=== PATIENT | male | born 1950 | race Caucasian/White ===

== ENCOUNTER → 2016-12-10 | Day surgery (SDC) | payer MEDICARE, OTHER ==
[~2016-12-10] MED LIST: IV RINGERS,LACTATED 1000ML 1,000 ML IV SCH; LIDOCAINE 2% PF Vial for OR 5 ML VIAL. ONE; LISI-334 PO; NAPR500T PO; PROPOFOL 20 ML IV ONE
[2016-12-10 10:50] VITALS: BP 149/89
--- NOTE | 2016-12-10 12:31 | PREOP HP ---
DATE OF SERVICE: 12/10/2016 REQUESTING PHYSICIAN: Dr. Alyssa Morrison, primary care physician. REASON FOR PROCEDURE: History of colon polyps. HISTORY OF PRESENT ILLNESS: This is a 65-year-old gentleman who presents today for colonoscopy. He had a colonoscopy 4 years ago that demonstrated polyps. He reports a daily bowel movement. He has no family history of colorectal cancer. ALLERGIES: CODEINE CAUSES NAUSEA. MEDICATIONS: 1. Lisinopril. 2. Naproxen. PAST MEDICAL HISTORY: Significant for: 1. Colon polyps. 2. Hypertension. 3. Urethral stricture. 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 5. Urinary obstruction. 6. Double hernia surgery 25 years ago. 7. Left leg surgery. 8. Pelvic ____. 9. Left hip replacement. 10. Left cataract removal. 11. Arthritis. FAMILY MEDICAL HISTORY: Negative for colorectal cancer. SOCIAL HISTORY: He previously drank alcohol, none currently. He denies tobacco or IV drug abuse. REVIEW OF SYSTEMS: A 13-point review of systems was done. It is positive as per HPI and otherwise negative. PHYSICAL EXAMINATION: GENERAL: He is a well-developed, well-nourished male in no apparent distress. HEENT: Oropharynx is clear. CARDIOVASCULAR: S1, S2. LUNGS: Clear. ABDOMEN: Normoactive bowel sounds, soft, nontender, nondistended. EXTREMITIES: No edema. NEUROLOGIC: Awake, alert and oriented x 3. ASSESSMENT AND PLAN: History of colon polyps. Risks and benefits of procedure including bleeding, perforation, ____ and sedation were explained and he agreed to proceed. Thank you for allowing me to participate in the care of this patient. KELLY NAVA MD DR: ALTAF/syed JOB#: [id number] / [id number] RICHIE Thomas MD
== END | disposition home or self-care (01) ==
LOC: ENDOS 08:37
PROVIDERS: ATTEND Internal Medicine Gastroenterology
DX: Z09 Encounter for follow-up examination after completed treatment for conditions other than malignant neoplasm (principal); Z87.19 Personal history of other diseases of the digestive system; K64.0 First degree hemorrhoids; I10 Essential (primary) hypertension; Z87.39 Personal history of other diseases of the musculoskeletal system and connective tissue; Z98.42 Cataract extraction status, left eye; Z88.6 Allergy status to analgesic agent
CPT/HCPCS: 45378; J2704; J2001

== ENCOUNTER 2017-03-08 05:34 | Inpatient (IN) | payer MEDICARE ==
[2017-03-08] VITALS (14 sets, daily range): BP systolic 114–157; BP diastolic 44–65
[~2017-03-08] VITALS: Ht 172.7 cm; Wt 100.8 kg
[~2017-03-08 05:34] MED LIST changes: +ASPI-630 PO; -IV RINGERS,LACTATED 1000ML 1,000 ML IV SCH; -LIDOCAINE 2% PF Vial for OR 5 ML VIAL. ONE; +METO25TA4 PO; +NAPR-683 PO; -NAPR500T PO; -PROPOFOL 20 ML IV ONE
[2017-03-08] MEDS ORDERED: POTASSIUM CHLORIDE 15 MEQ, SODIUM BICARBONATE VIAL 12.5 MEQ in IV ELECTROLYTE-S (PH 7.4... IRR ONE (06:00)
[2017-03-08] MEDS ORDERED: HEPARIN 20,000 UNIT in IV RINGERS,LACTATED 1000ML 1,000 ML IRR ONE (06:00)
[2017-03-08] MEDS ORDERED: POTASSIUM CHLORIDE 70 MEQ, SODIUM BICARBONATE VIAL 12.5 MEQ, LIDOCAINE 2% 24 ML in IV E... IRR ONE (06:00)
[2017-03-08] MEDS ORDERED: ASPI325T11 PO (06:27)
[2017-03-08] MEDS ORDERED: LISI-334 PO (06:27)
[2017-03-08] MEDS ORDERED: NAPR-683 PO (06:27)
[2017-03-08] MEDS ORDERED: ceFAZolin 2GM PREMIX 2 GM/50 ML BAG IV ONE (06:30)
[2017-03-08] MEDS ORDERED: LIDOCAINE 2% PF Vial for OR 5 ML VIAL. ONE ×2 (06:48→12:54)
[2017-03-08] MEDS ORDERED: PHENYLEPHRINE 10 MG/ML VIAL. ONE ×3 (06:48→14:15)
[2017-03-08] MEDS ORDERED: ETOMIDATE 20 MG/10 ML VIAL. IV ONE (06:48)
[2017-03-08] MEDS ORDERED: NITROGLYCERIN PREMIX 250 ML IV ONE (06:48)
[2017-03-08] MEDS ORDERED: ROCURONIUM 100 MG/10 ML VIAL. ONE ×3 (06:49→11:34)
[2017-03-08] MEDS ORDERED: SUFentanil 100 MCG/2 ML AMPUL. ONE (06:49)
[2017-03-08] MEDS ORDERED: MIDAZOLAM HCL/PF 2 MG/2 ML VIAL. ONE ×3 (06:49→12:09)
[2017-03-08] MEDS ORDERED: HEPARIN 30,000 UNIT/30 ML VIAL. ONE ×2 (06:50→12:54)
[2017-03-08] MEDS ORDERED: AMINOCAPROIC ACID 5,000 MG/20 ML VIAL. IV ONE (06:50)
[2017-03-08] MEDS ORDERED: LIDOCAINE 1% PF 2 ML VIAL. ID PRN (07:00)
[2017-03-08] MEDS ORDERED: PROCHLORPERAZINE 10 MG/2 ML VIAL. IV PRN ×2 (07:00→13:00)
[2017-03-08] MEDS ORDERED: HYDROmorphone 2 MG/ML VIAL IV PRN (07:00)
[2017-03-08] MEDS ORDERED: MORPHINE SULFATE 4 MG/ML DISP.SYRIN. IV PRN (07:00)
[2017-03-08] MEDS ORDERED: IV RINGERS,LACTATED 1000ML 1,000 ML IV SCH (07:00)
[2017-03-08] MEDS ORDERED: fentaNYL PF VIAL 100 MCG/2 ML VIAL IV PRN ×2 (07:00)
[2017-03-08] MEDS ORDERED: ONDANSETRON PF 4 MG/2 ML VIAL. IV PRN (07:00)
[2017-03-08] MEDS ORDERED: SUFentanil 250 MCG/5 ML AMPUL. ONE (07:04)
[2017-03-08] MEDS ORDERED: PAPAVERINE 60 MG/2 ML VIAL FOR OR ONLY. ONE (07:38)
[2017-03-08] MEDS ORDERED: ASPIRIN 300 MG SUPP.RECT ONE (07:38)
[2017-03-08] MEDS ORDERED: VANCOMYCIN 10GM VIAL for OR. ONE (07:38)
[2017-03-08] MEDS ORDERED: SURGICEL HEMOSTAT 4X8 EACH. ONE (07:38)
[2017-03-08] MEDS ORDERED: 0.9 % SODIUM CHLORIDE 50 ML VIAL. IJ ONE (07:39)
--- NOTE | 2017-03-08 08:24 | PDOC1 ---
History and Physical Date of Admission Date of Admission DATE: 03/08/17 TIME: 08:22 Identification/Chief Complaint Chief Complaint Angina Problems: Source Source: Chart review, Patient History of Present Illness History of Present Illness The patient is a pleasant 58-year-old male with a strong family history of ischemic heart disease, and a medical history of hypertension and hyperlipidemia who presents with unstable angina for 2 months. His angina has been occurring more frequently over the past several weeks on minimal exertion. He describes a central chest pain/heaviness with associated shortness of breath , which subsides with rest. He underwent coronary angiography which demonstrated high-grade stenosis in the proximal LAD, proximal circumflex, and the ostium of a large OM 1. The patient has mild ischemic cardiomyopathy with an EF of 45%. The RCA is a relatively small vessel with minimal disease. Past Medical History Cardiovascular: HTN Pulmonary: Bronchitis Musculoskeletal: Osteoarthritis Renal/: Chronic renal insuff, Other Past Surgical History Past Surgical History: Hernia Repair, Total hip replacement Family History Family History: Heart Disease Family History: Parent Social History ALCOHOL: none Drugs: None Current Medications Current Medications Current Medications Ondansetron HCl (Zofran) 4 mg PRN Q6HRS PRN IV NAUSEA/VOMITING; Start at 07:00; Stop 03/09/17 at 06:59 Fentanyl Citrate (Fentanyl 2ml Vial) 25 mcg PRN Q5MIN PRN IV MILD PAIN; Start 03/08/17 at 07:00; Stop 03/09/17 at 06:59 Fentanyl Citrate (Fentanyl 2ml Vial) 50 mcg PRN Q5MIN PRN IV MODERATE PAIN; Start 03/08/17 at 07:00; Stop 03/09/17 at 06:59 Morphine Sulfate 1 mg PRN Q10MIN PRN IV SEVERE PAIN; Start 03/08/17 at 07:00; Stop 03/09/17 at 06:59 Ringer's Solution 1,000 ml @ 0 mls/hr Q0M IV Last administered on 03/08/17t 06:18; Start 03/08/17 at 07:00; Stop 03/08/17 at 18:59 Lidocaine HCl (Xylocaine-Mpf 1% Vial) 2 ml PRN 1X PRN ID PRIOR TO IV START; Start 03/08/17 at 07:00; Stop 03/09/17 at 06:59 Hydromorphone HCl (Dilaudid) 0.5 mg PRN Q10MIN PRN IV SEV PAIN, Second choice; Start 03/08/17 at 07:00; Stop 03/09/17 at 06:59 Prochlorperazine Edisylate (Compazine) 5 mg PACU PRN PRN IV NAUSEA, MRX1; Start 03/08/17 at 07:00; Stop 03/09/17 at 06:59 Cefazolin Sodium/ Dextrose 50 ml @ As Directed STK-MED ONCE IV ; Start at 06:22; Stop 03/08/17 at 06:23; Status DC Lidocaine HCl (Lidocaine Pf 2% Vial) 5 ml STK-MED ONCE .ROUTE ; Start 03/08/17 at 06:48; Stop 03/08/17 at 06:49; Status DC Phenylephrine HCl (Alvarez-Synephrine Inj) 10 mg STK-MED ONCE .ROUTE ; Start at 06:48; Stop 03/08/17 at 06:49; Status DC Etomidate (Amidate) 20 mg STK-MED ONCE IV ; Start 03/08/17 at 06:48; Stop at 06:49; Status DC Nitroglycerin/ Dextrose 250 ml @ As Directed STK-MED ONCE IV ; Start 03/08/17 at 06:48; Stop 03/08/17 at 06:49; Status DC Rocuronium [place] (Zemuron) 100 mg STK-MED ONCE .ROUTE ; Start 03/08/17 at 06: 49; Stop 03/08/17 at 06:50; Status DC Sufentanil Citrate (Sufenta) 100 mcg STK-MED ONCE .ROUTE ; Start 03/08/17 at 06 :49; Stop 03/08/17 at 06:50; Status DC Midazolam HCl (Versed) 2 mg STK-MED ONCE .ROUTE ; Start 03/08/17 at 06:49; Stop 03/08/17 at 06:50; Status DC Heparin Sodium (Porcine) 30,000 unit STK-MED ONCE .ROUTE ; Start 03/08/17 at 06 :50; Stop 03/08/17 at 06:51; Status DC Aminocaproic Acid (Amicar) 5,000 mg STK-MED ONCE IV ; Start 03/08/17 at 06:50; Stop 03/08/17 at 06:51; Status DC Sufentanil Citrate (Sufenta) 250 mcg STK-MED ONCE .ROUTE ; Start 03/08/17 at 07 :04; Stop 03/08/17 at 07:05; Status DC Vancomycin HCl (Vanco) 10 gm STK-MED ONCE .ROUTE ; Start 03/08/17 at 07:38; Stop 03/08/17 at 07:39; Status DC Cellulose 1 each STK-MED ONCE .ROUTE ; Start 03/08/17 at 07:38; Stop 03/08/17 at 07:39; Status DC Papaverine HCl 60 mg STK-MED ONCE .ROUTE ; Start 03/08/17 at 07:38; Stop 03/08 at 07:39; Status DC Aspirin (Aspirin) 300 mg STK-MED ONCE .ROUTE ; Start 03/08/17 at 07:38; Stop 03/08/17 at 07:39; Status DC Sodium Chloride (Sodium Chloride) 50 ml STK-MED ONCE IJ ; Start 03/08/17 at 07: 39; Stop 03/08/17 at 07:40; Status DC Cefazolin Sodium/ Dextrose 50 ml @ 100 mls/hr 1X PREOP IV ; Start 03/08/17 at 07:45; Stop 03/09/17 at 18:00 Potassium Chloride 70 meq/ Sodium Bicarbonate 12.5 meq/Lidocaine HCl 24 ml/ Parenteral Electrolytes 571.5 ml @ 571.5 mls/ hr 1X PERIOP ONCE IRR ; Start 03/08/17 at 06:00; Stop 03/08/17 at 07:45; Status DC Potassium Chloride 15 meq/ Sodium Bicarbonate 12.5 meq/Parenteral Electrolytes 520 ml @ 520 mls/hr 1X PERIOP ONCE IRR ; Start 03/08/17 at 06:00; Stop 03/08 at 07:45; Status DC Cefazolin Sodium 1 gm/Sodium Chloride 500 ml @ 500 mls/hr 1X PERIOP ONCE IRR ; Start 03/08/17 at 06:00; Stop 03/08/17 at 07:45; Status DC Heparin Sodium (Porcine) 05573 unit/Ringer's Solution 1,020 ml @ 1,020 mls/hr 1X PERIOP ONCE IRR ; Start 03/08/17 at 06:00; Stop 03/08/17 at 07:45; Status DC Midazolam HCl (Versed) 2 mg STK-MED ONCE .ROUTE ; Start 03/08/17 at 08:14; Stop 03/08/17 at 08:15; Status DC Active Scripts Active Reported Naprosyn (Naproxen) 500 Mg Tablet 1 Tab PO BIDAFTMEAL PRN PRN Aspirin Ec (Aspirin) 325 Mg Tablet.dr 1 Tab PO DAILY Lisinopril 20 Mg Tablet 1 Tab PO DAILY Metoprolol Tartrate 25 Mg Tablet 25 Mg PO BID Allergies Allergies: Coded Allergies: codeine (Verified Adverse Reaction, Mild, Nausea and Vomiting, 03/08/17) ROS General: No: Chills, Night Sweats, Fatigue, Malaise, Appetite PSYCHOLOGICAL ROS: No: Anxiety, Behavioral Disorder, Concentration difficultie , Decreased libido, Depression, Disorientation, Hallucinations, Hostility, Irritablity, Memory difficulties, Mood Swings, Obsessive thoughts, Physical abuse, Sexual abuse, Sleep disturbances, Suicidal ideation Eyes: No Blurry vision, No Decreased vision, No Double vision, No Dry eyes, No Excessive tearing, No Eye Pain, No Itchy Eyes, No Loss of vision, No Photophobia , No Scotomata, No Uses contacts, No Uses glasses HEENT: No: Heacaches, Visual Changes, Hearing change, Nasal congestion, Nasal discharge, Oral lesions, Sinus pain, Sore Throat, Epistaxis, Sneezing, Snoring, Tinnitus, Vertigo, Vocal changes ALLERGY AND IMMUNOLOGY: No: Hives, Insect Bite Sensitivity, Itchy/Watery Eyes, Nasal Congestion, Post Nasal Drip, Seasonal Allergies ENDOCRINE: No: Breast Changes, Galactorrhea, Hair Pattern Changes, Hot Flashes , Malaise/lethargy, Mood Swings, Palpitations, Polydipsia/polyuria, Skin Changes , Temperature Intolerance, Unexpected Weight Changes Respiratory: No: Cough, Hemoptysis, Orthopnea, Pleuritic Pain, Shortness of breath, SOB with excertion, Sputum Changes, Stridor, Tachypnea, Wheezing Cardiovascular: No Chest Pain, No Palpitations, No Orthopnea, No Paroxysmal Noc. Dyspnea, No Edema, No Lt Headedness Gastrointestinal: No Nausea, No Vomiting, No Abdominal Pain, No Diarrhea, No Constipation, No Melena, No Hematochezia Genitourinary: No Dysuria, No Frequency, No Incontinence, No Hematuria, No Retention, No Discharge, No Urgency, No Pain, No Flank Pain Musculoskeletal: No Gait Disturbance, No Joint Pain, No Joint Stiffness, No Joint Swelling, No Muscle Pain, No Muscular Weakness, No Pain In:, No Swelling In: Neurological: No Behavorial Changes, No Bowel/Bladder ControlChng, No Confusion , No Dizziness, No Gait Disturbance, No Headaches, No Impaired Coord/balance, No Memory Loss, No Numbness/Tingling, No Seizures, No Speech Problems, No Tremors, No Visual Changes, No Weakness Skin: No Dry Skin, No Eczema, No Hair Changes, No Lumps, No Mole Changes, No Mottling, No Nail Changes, No Pruritus, No Rash, No Skin Lesion Changes, No Acne Physical Exam General: Alert, Oriented X3, No acute distress HEENT: Atraumatic, PERRLA Lungs: Clear to auscultation Heart: S1S2, RRR, no murmurs Abdomen: Normal bowel sounds, Soft, No tenderness, No hepatosplenomegaly Rectal Exam: deferred Extremities: No clubbing Skin: No significant lesion Neuro: Normal gait, Normal speech, Strength at 5/5 X4 ext, Normal tone, Sensation intact, Cranial nerves 3-12 NL Vitals Vitals Vital Signs Date Time Temp Pulse Resp B/P (MAP) Pulse Ox O2 Delivery O2 Flow Rate FiO2 03/08/17 06:11 Room Air 03/08/17 06:05 97.3 92 20 125/66 98 97.3 VTE Prophylaxis Ordered VTE Prophylaxis Devices: Yes VTE Pharmacological Prophylaxi: No Assessment/Plan Assessment/Plan The patient is a pleasant 58-year-old male with a strong family history of ischemic heart disease, and a medical history of hypertension and hyperlipidemia who presents with unstable angina for 2 months. His angina has been occurring more frequently over the past several weeks on minimal exertion. He describes a central chest pain/heaviness with associated shortness of breath , which subsides with rest. He underwent coronary angiography which demonstrated high-grade stenosis in the proximal LAD, proximal circumflex, and the ostium of a large OM 1. The patient has mild ischemic cardiomyopathy with an EF of 45%. The RCA is a relatively small vessel with minimal disease. Proceed with CABG ARNALDO GALINDO MD Mar 08, 2017 08:24
[2017-03-08] MEDS ORDERED: INSULIN REGULAR VIAL 150 UNIT in 0.9 % SODIUM CHLORIDE 150ML 150 ML IV PRN ×2 (09:30→13:00)
[2017-03-08] MEDS ORDERED: HEPARIN for IV BOLUS 10,000 UNIT/10 ML VIAL. ONE ×3 (09:32→12:54)
[2017-03-08] MEDS ORDERED: PROTAMINE 250 MG/25 ML VIAL IV ONE ×2 (12:23→12:26)
[2017-03-08] MEDS ORDERED: PROPOFOL 100 ML IV ONE (12:24)
[2017-03-08] MEDS ORDERED: CALCIUM CHLORIDE 1,000 MG/10 ML DISP.SYRIN IV ONE ×3 (12:51→12:54)
[2017-03-08] MEDS ORDERED: ALBUMIN HUMAN 25% 100 ML IV ONE (12:55)
[2017-03-08] MEDS ORDERED: MANNITOL 25% 12.5 G/50 ML VIAL FOR OR. ONE (12:55)
[2017-03-08] MEDS ORDERED: MAGNESIUM SULFATE 5 GM/10 ML VIAL. ONE (12:55)
[2017-03-08] MEDS ORDERED: SODIUM BICARB ADULT 8.4% 50 MEQ/50 ML DISP.SYRIN. ONE (12:56)
[2017-03-08] MEDS ORDERED: MAGNESIUM SULFATE 1GM 100 ML IV PRN (13:00)
[2017-03-08] MEDS ORDERED: ACETAMINOPHEN 325 MG TABLET. PO PRN (13:00)
[2017-03-08] MEDS ORDERED: ALBUMIN HUMAN 5% 250 ML IV PRN (13:00)
[2017-03-08] MEDS ORDERED: 0.9 % SODIUM CHLORIDE 10 ML DISP.SYRIN. IV PRN (13:00)
[2017-03-08] MEDS ORDERED: BISACODYL 10 MG SUPP.RECT. PR PRN (13:00)
[2017-03-08] MEDS ORDERED: MEPERIDINE PF 25 MG/ML VIAL. IV PRN (13:00)
[2017-03-08] MEDS ORDERED: ceFAZolin SODIUM 1 GM in IV DEXTROSE 5% 50 ML IV SCH (13:00)
[2017-03-08] MEDS ORDERED: ACETAMINOPHEN 650 MG SUPP.RECT. PR PRN (13:00)
[2017-03-08] MEDS ORDERED: ELECTROLYTE (ICU) PROTOCOL. MC PRN (13:00)
[2017-03-08] MEDS ORDERED: DEXTROSE 50% 25 GM / 50ML DISP.SYRIN. IV PRN (13:00)
[2017-03-08] MEDS ORDERED: KCL PER PROTOCOL MC PRN (13:00)
[2017-03-08] MEDS ORDERED: ALBUMIN HUMAN 5% 500 ML IV ONE (13:08)
[2017-03-08 13:27] LABS: RED BLOOD COUNT 2.48 x10^6/uL (4.30-5.70); RED CELL DISTRIBUTION WIDTH 16.1 % (11.5-14.5); WHITE BLOOD COUNT 15.7 x10^3/uL (4.0-11.0)
[2017-03-08] MEDS ORDERED: ROCURONIUM 50 MG/5 ML VIAL. ONE (13:27)
[2017-03-08 13:33] LABS: HEMATOCRIT 18.7 % (39.0-53.0); HEMOGLOBIN 5.8 g/dL (13.0-17.5)
[2017-03-08 13:36] LABS: PROTHROMBIN TIME PATIENT 21.3 SEC (11.7-14.0)
[2017-03-08 14:25] LABS: ART BE ISTAT -4 mmol/L (0-3); ART GLUC ISTAT 131 mg/dL (70-99); ART HCO3 ISTAT 21 mmol/L (21-28); ART HCT ISTAT 23 % (37-52); ART HGB ISTAT 7.8 g/dL (14-18); ART ION CA ISTAT 1.15 mmol/L (1.13-1.32); ART K ISTAT 3.7 mmol/L (3.5-5.0); ART NA ISTAT 138 mmol/L (135-145); ART PCO2 ISTAT 34 mmHg (35-45); ART PH ISTAT 7.41 (7.35-7.45); ART PO2 ISTAT 223 mmHg (75-100); ART SAT O2 SAT 100 % (95-99); ART TCO2 ISTAT 22 mmol/L (21-32); TOSPEC ART
[2017-03-08 14:25] LABS: ART BE ISTAT 0 mmol/L (0-3); ART GLUC ISTAT 123 mg/dL (70-99); ART HCO3 ISTAT 24 mmol/L (21-28); ART HCT ISTAT 26 % (37-52); ART HGB ISTAT 8.8 g/dL (14-18); ART ION CA ISTAT 1.19 mmol/L (1.13-1.32); ART K ISTAT 3.7 mmol/L (3.5-5.0); ART NA ISTAT 137 mmol/L (135-145); ART PCO2 ISTAT 38 mmHg (35-45); ART PH ISTAT 7.41 (7.35-7.45); ART PO2 ISTAT 218 mmHg (75-100); ART SAT O2 SAT 100 % (95-99); ART TCO2 ISTAT 25 mmol/L (21-32); TOSPEC ART
[2017-03-08 14:26] LABS: ART BE ISTAT -3 mmol/L (0-3); ART GLUC ISTAT 165 mg/dL (70-99); ART HCO3 ISTAT 22 mmol/L (21-28); ART HCT ISTAT 25 % (37-52); ART HGB ISTAT 8.5 g/dL (14-18); ART ION CA ISTAT 1.11 mmol/L (1.13-1.32); ART K ISTAT 4.1 mmol/L (3.5-5.0); ART NA ISTAT 137 mmol/L (135-145); ART PCO2 ISTAT 38 mmHg (35-45); ART PH ISTAT 7.38 (7.35-7.45); ART PO2 ISTAT 252 mmHg (75-100); ART SAT O2 SAT 100 % (95-99); ART TCO2 ISTAT 23 mmol/L (21-32); TOSPEC ART
[2017-03-08 14:26] LABS: ART BE ISTAT -1 mmol/L (0-3); ART GLUC ISTAT 184 mg/dL (70-99); ART HCO3 ISTAT 26 mmol/L (21-28); ART HCT ISTAT 25 % (37-52); ART HGB ISTAT 8.5 g/dL (14-18); ART ION CA ISTAT 1.13 mmol/L (1.13-1.32); ART K ISTAT 4.2 mmol/L (3.5-5.0); ART NA ISTAT 138 mmol/L (135-145); ART PCO2 ISTAT 53 mmHg (35-45); ART PO2 ISTAT 241 mmHg (75-100); ART SAT O2 SAT 100 % (95-99); ART TCO2 ISTAT 28 mmol/L (21-32); TOSPEC ART
[2017-03-08 14:26] LABS: ART BE ISTAT -4 mmol/L (0-3); ART GLUC ISTAT 137 mg/dL (70-99); ART HCO3 ISTAT 21 mmol/L (21-28); ART HCT ISTAT 22 % (37-52); ART HGB ISTAT 7.5 g/dL (14-18); ART ION CA ISTAT 1.07 mmol/L (1.13-1.32); ART K ISTAT 4.7 mmol/L (3.5-5.0); ART NA ISTAT 136 mmol/L (135-145); ART PCO2 ISTAT 32 mmHg (35-45); ART PH ISTAT 7.41 (7.35-7.45); ART PO2 ISTAT 286 mmHg (75-100); ART SAT O2 SAT 100 % (95-99); ART TCO2 ISTAT 22 mmol/L (21-32); TOSPEC ART
[2017-03-08 14:26] LABS: ART BE ISTAT -6 mmol/L (0-3); ART GLUC ISTAT 128 mg/dL (70-99); ART HCO3 ISTAT 20 mmol/L (21-28); ART HCT ISTAT 20 % (37-52); ART HGB ISTAT 6.8 g/dL (14-18); ART ION CA ISTAT 1.67 mmol/L (1.13-1.32); ART K ISTAT 3.4 mmol/L (3.5-5.0); ART NA ISTAT 141 mmol/L (135-145); ART PCO2 ISTAT 38 mmHg (35-45); ART PH ISTAT 7.34 (7.35-7.45); ART PO2 ISTAT 198 mmHg (75-100); ART SAT O2 SAT 100 % (95-99); ART TCO2 ISTAT 21 mmol/L (21-32); TOSPEC ART
[2017-03-08 14:26] LABS: ART BE ISTAT -5 mmol/L (0-3); ART GLUC ISTAT 122 mg/dL (70-99); ART HCO3 ISTAT 20 mmol/L (21-28); ART HCT ISTAT 24 % (37-52); ART HGB ISTAT 8.2 g/dL (14-18); ART K ISTAT 3.4 mmol/L (3.5-5.0); ART NA ISTAT 142 mmol/L (135-145); ART PCO2 ISTAT 30 mmHg (35-45); ART PH ISTAT 7.42 (7.35-7.45); ART PO2 ISTAT 120 mmHg (75-100); ART SAT O2 SAT 99 % (95-99); ART TCO2 ISTAT 21 mmol/L (21-32); TOSPEC ART
[2017-03-08 14:26] LABS: ART BE ISTAT -1 mmol/L (0-3); ART GLUC ISTAT 181 mg/dL (70-99); ART HCO3 ISTAT 23 mmol/L (21-28); ART HCT ISTAT 25 % (37-52); ART HGB ISTAT 8.5 g/dL (14-18); ART ION CA ISTAT 1.84 mmol/L (1.13-1.32); ART K ISTAT 4.1 mmol/L (3.5-5.0); ART NA ISTAT 135 mmol/L (135-145); ART PCO2 ISTAT 35 mmHg (35-45); ART PH ISTAT 7.43 (7.35-7.45); ART PO2 ISTAT 358 mmHg (75-100); ART SAT O2 SAT 100 % (95-99); ART TCO2 ISTAT 24 mmol/L (21-32); TOSPEC ART
[2017-03-08] MEDS ORDERED: CLEVIDIPINE BUTYRATE 100 ML IV PRN ×2 (14:30)
[2017-03-08] MEDS ORDERED: AMIODARONE 150 MG in IV DEXTROSE 5% 100 ML IV ONE (14:30)
[2017-03-08] MEDS ORDERED: AMIODARONE 900 MG in IV DEXTROSE 5% 500 ML IV PRN (14:30)
[2017-03-08] MEDS: IV RINGERS,LACTATED 1000ML 1,000 ML IV SCH (15:04)
--- NOTE | 2017-03-08 15:07 | EKG ---
[facility] [address] [place] [address] Test Date: 2017-03-08 Test Time: 15:02:49 Pat Name: ZAIDA ELDER Department: Room: 111 1 Gender: M Social Work Case Manager: MILAGRO : 1950 Requested By: MELODY GARZON Order Number: [id number] Reading MD: Konstantin Jasso MD Measurements Intervals [place] Rate: 98 P: 41 [place]: 172 QRS: 43 QRSD: 94 T: 51 QT: 380 QTc: 487 Interpretive Statements SINUS RHYTHM VENTRICULAR PREMATURE COMPLEX(ES) Electronically Signed On 03-08-2017 16:29:49 HOSTAGE NEGOTIATOR by Konstantin Jasso MD
[2017-03-08 15:18] LABS: BASE EXCESS COOX -4 mmol/L (-3-3); CARBON MONOXIDE 0.4 % (0.0-1.9); HCO3 COOX 20 mmol/L (21-28); METHEMOGLOBIN 0.5 % (0.0-1.9); OXYHEMOGLOBIN 97.8 %; PCO2 COOX 32 mmHg (35-46); PH COOX 7.41 (7.35-7.45); PO2 COOX 195 mmHg (65-108); SAT O2 COOX 99 % (92-99); TOTAL HEMOGLOBIN 8.9 g/dL
[2017-03-08 15:24] LABS: FIO2 COOX 100
--- NOTE | 2017-03-08 15:28 | PDOC ---
BRIEF OPERATIVE NOTE Pre-Op Diagnosis Unstable angina Left main coronary artery disease Ischemic cardiomyopathy (EF 45%) Hypertension Hyperlipidemia Chronic renal failure Urethral stricture Post-Op Diagnosis Unstable angina Left main coronary artery disease Ischemic cardiomyopathy (EF 45%) Hypertension Hyperlipidemia Chronic renal failure Urethral stricture Procedure Performed CABG x 3 (SHELL to LAD, SVG to OM1, SVG to OM2) Left endoscopic greater saphenous vein harvest Surgeon Arnaldo Galindo MD Draw In Hand Lisha House MEDICAL TYPIST Anesthesiologist Dr Gong Anesthesia Type: General Blood Loss Cellsaver IV Fluid Crystalloid: 3500 mls Albumin: 500 mls Cellsaver: 240 mls 1 unit PRBCs Urine Output 350 mls Specimens Obtained Enlarged anterior mediastinal lymph node Findings Good 2 mm LAD, OM1, OM 2 targets Modest-sized SHELL with excellent flow Modest sized left greater saphenous vein Mild ischemic cardiomyopathy Complications None Operative Note Additional remarks: CPB time: 110 min x-clamp time: 78 min ARNALDO GALINDO MD Mar 08, 2017 15:27
--- NOTE | 2017-03-08 15:29 | PDOC4 ---
Operative Note Operative Note Preoperative diagnosis Unstable angina Left main coronary artery disease Ischemic cardiomyopathy (EF 45%) Hypertension Hyperlipidemia Chronic renal failure Urethral stricture Postoperative diagnosis Unstable angina Left main coronary artery disease Ischemic cardiomyopathy (EF 45%) Hypertension Hyperlipidemia Chronic renal failure Urethral stricture Procedure CABG x 3 (SHELL to LAD, SVG to OM1, SVG to OM2) Left endoscopic greater saphenous vein harvest Insertion of right femoral arterial line Surgeon Arnaldo Galindo MD Corporate Relations Manager WILLIAM Muñiz Anesthesiologist Dr Gong Anesthesia type General Blood loss Cellsaver IV fluids Crystalloid: 3500 mls Albumin: 500 mls Cellsaver: 240 mls 1 unit PRBCs Urine output 350 mls Specimens obtained Enlarged anterior mediastinal lymph node Findings Good 2 mm LAD, OM1, OM 2 targets Modest-sized SHELL with excellent flow Modest sized left greater saphenous vein Mild ischemic cardiomyopathy Complications None Additional remarks: CPB time: 110 min x-clamp time: 78 min Indication he patient is a pleasant 58-year-old male with a strong family history of ischemic heart disease, and a medical history of hypertension and hyperlipidemia who presents with unstable angina for 2 months. His angina has been occurring more frequently over the past several weeks on minimal exertion. He describes a central chest pain/heaviness with associated shortness of breath , which subsides with rest. He underwent coronary angiography which demonstrated high-grade stenosis in the proximal LAD, proximal circumflex, and the ostium of a large OM 1. The patient has mild ischemic cardiomyopathy with an EF of 45%. The RCA is a relatively small vessel with minimal disease. A CABG was indicated. The risks, benefits, and limitations of procedure explained to the patient who agreed to proceed. Informed consent was obtained. Operation After appropriate identification, the patient was brought to the operating room and placed supine on the operating table. Anesthesia was induced and the airway was secured with an endotracheal tube. A right IJ [place]-Sharon catheter and a left radial arterial line were placed. Antibiotics were delivered and the patient was preped and draped in the usual standard surgical sterile fashion. A timeout was then performed. A median sternotomy was performed and the internal mammary artery was harvested, which was of moderate size but with excellent flow. Simultaneously the left greater saphenous vein was harvested endoscopically, which was of modest quality and caliber. The pericardium was incised. The patient was heparinized. Cardiopulmonary bypass was established through the ascending aorta and the right atrium. The patient was cooled to 34 . Myocardial protection was achieved with antegrade blood cardioplegia. The cross-clamp was applied and diastolic arrest was achieved. Intermittent dosages of cardioplegia were given. Grafts: Saphenous vein graft to obtuse marginal 1 coronary artery, end to side anastomosis with 7-0 Prolene. 2 mm vessel. Saphenous vein graft to obtuse marginal 2 coronary artery, end to side anastomosis with 7-0 Prolene. 2 mm vessel. Left internal mammary artery to left anterior descending, end to side anastomosis with 7-0 Prolene. 2 mm vessel Two proximal anastomosis were performed using a 6-0 Prolene running suture. The cross-clamp was removed. The heart was allowed to rewarm and reperfuse. The grafts were de-aired. The patient resumed normal sinus rhythm and was from cardiopulmonary bypass without pharmacologic support. Heparin was reversed with protamine. Atrial and ventricular pacing wires were placed. Hemostasis was confirmed. An angled 32 Khmer chest tube was placed in the left pleural space, a 32Fr angled in the posterior pericardium and a 32 straight in the anterior pericardium. I also placed a right femoral artery arterial line, since the left radial arterial line was working intermittently. The sternotomy was closed with six stainless steel wires. The incision was closed with a layer of 0 Vicryl followed by 2-0 Vicryl and then 4-0 Monocryl for the epidermis. Sterile dressings were applied. The total cardiopulmonary bypass time was 110 minutes and the cross-clamp time was 78 minutes. The instrument, sponge and needle counts were correct. The patient was then transferred to the ICU in critical. ARNALDO GALINDO MD Mar 08, 2017 15:29
[2017-03-08] MEDS ORDERED: SODIUM BICARB ADULT 8.4% 50 MEQ/50 ML DISP.SYRIN. IV ONE (16:00)
[2017-03-08 16:01] LABS: HEMATOCRIT 25.5 % (39.0-53.0); HEMOGLOBIN 8.1 g/dL (13.0-17.5); RED BLOOD COUNT 3.38 x10^6/uL (4.30-5.70); RED CELL DISTRIBUTION WIDTH 17.2 % (11.5-14.5); WHITE BLOOD COUNT 14.8 x10^3/uL (4.0-11.0)
[2017-03-08 16:13] LABS: INR 1.5 (0.8-1.1); PROTHROMBIN TIME PATIENT 17.2 SEC (11.7-14.0)
[2017-03-08 16:16] LABS: CALCIUM 9.4 mg/dL (8.5-10.1); CREATININE 1.4 mg/dL (0.7-1.3); GFR 50.4; MAGNESIUM 2.2 mg/dL (1.8-2.4); POTASSIUM 3.4 mmol/L (3.5-5.1)
--- NOTE | 2017-03-08 16:26 | RAD ---
Indication: Post CABG. Technique: Supine portable chest radiograph was obtained. Comparison is from July 08, 2009. Findings: Endotracheal tube and endogastric tube are in place. [place]-Sharon catheter placed via right IJ approach is noted with the tip in the right main pulmonary artery. Chest and mediastinal drains are noted. There is no pneumothorax. There is basilar atelectasis and or infiltrate bilaterally. The heart is not enlarged. The pulmonary vasculature appears mildly cephalized. Median sternotomy wires are noted. Impression: 1. Expected postoperative findings of CABG. 2. Mild vascular congestion suspected. 3. Mild basilar atelectasis and or infiltrate bilaterally.
[2017-03-08] MEDS ORDERED: POTASSIUM CHLORIDE 20MEQ 50 ML IV ONE (16:30)
[2017-03-08] MEDS: POTASSIUM CHLORIDE 20MEQ 50 ML IV SCH ×3 (16:56→19:49)
--- NOTE | 2017-03-08 17:58 | CONS ---
DATE OF CONSULTATION: 03/08/2017 HISTORY OF PRESENT ILLNESS: This patient is a 66-year-old gentleman that has been having severe exertional angina. He had a heart catheterization done that showed triple vessel coronary artery disease and he was coming in today for bypass surgery. Prior to the surgery, he was not complaining of chest pains. Presently, the patient has just finished the surgery and is intubated. PAST MEDICAL HISTORY: Significant for hypertension and lots of problems with urination and has had some urological surgeries. PHYSICAL EXAMINATION: GENERAL: The patient is in the intensive care unit in the supine position, intubated and sedated. HEENT: Pupils are reactive. NECK: Supple. LUNGS: Normal breath sounds, no rales. HEART: Regular rate and rhythm. S1, S2, no S3, no S4. Positive high pitched rub. ABDOMEN: Soft. Bowel sounds are present. EXTREMITIES: No edema. IMPRESSION: This patient comes in for bypass surgery and tolerated the surgery rather well. Hemodynamically, he appears to be stable and he is not on any current drips. I agree with the present plan and we will be happy to follow the patient with you. Thank you very much for asking me to participate in the care of this patient. KYREE ZAVALA MD DR: MARY GRACE/syed JOB#: [id number] / [id number]
[2017-03-08 18:38] LABS: HCO3 ABG 21 mmol/L (21-28); PCO2 ABG 37 mmHg (35-46); PH ABG 7.38 (7.35-7.45); PO2 ABG 127 mmHg (65-108); SAT O2 ABG 98 % (92-99)
[2017-03-08 18:39] LABS: FIO2 ABG 40
[2017-03-08] MEDS: oxyCODONE/APAP 5/325 1 TAB TABLET PO PRN (19:18)
[2017-03-08] MEDS ORDERED: FAMOTIDINE 20 MG/2 ML VIAL IVP SCH (21:00)
[2017-03-08] MEDS: SENNOSIDES/DOCUSATE 8.6/50MG TABLET. PO SCH (21:03)
[2017-03-08] MEDS: ceFAZolin SODIUM IV Push 1 GM VIAL. IVP SCH (21:03)
[2017-03-08] MEDS: MORPHINE SULFATE 4 MG/ML DISP.SYRIN. IV PRN (21:40)
[2017-03-08 22:15] LABS: HEMATOCRIT 27.3 % (39.0-53.0); HEMOGLOBIN 8.7 g/dL (13.0-17.5)
[2017-03-09] VITALS (26 sets, daily range): BP systolic 101–139; BP diastolic 52–67
[2017-03-09] MEDS: oxyCODONE/APAP 5/325 1 TAB TABLET PO PRN ×3 (03:10→12:51)
[2017-03-09 04:24] LABS: HEMATOCRIT 26.5 % (39.0-53.0); HEMOGLOBIN 8.5 g/dL (13.0-17.5); RED BLOOD COUNT 3.5 x10^6/uL (4.30-5.70); RED CELL DISTRIBUTION WIDTH 17.1 % (11.5-14.5)
[2017-03-09 04:40] LABS: CALCIUM 8.5 mg/dL (8.5-10.1); CREATININE 1.3 mg/dL (0.7-1.3); GFR 54.9; MAGNESIUM 2.2 mg/dL (1.8-2.4); POTASSIUM 4.1 mmol/L (3.5-5.1)
[2017-03-09] MEDS: ceFAZolin SODIUM IV Push 1 GM VIAL. IVP SCH ×3 (05:29→21:22)
[2017-03-09] MEDS: MORPHINE SULFATE 4 MG/ML DISP.SYRIN. IV PRN ×2 (05:29→15:08)
[2017-03-09] MEDS ORDERED: POTASSIUM CHLORIDE 20MEQ 50 ML IV ONE (05:30)
--- NOTE | 2017-03-09 07:19 | EKG ---
[facility] [address] [place] [address] Test Date: 2017-03-08 Test Time: 15:00:23 Pat Name: ZAIDA ELDER Department: Room: 111 1 Gender: M Shipping Clerk/Admin: MILAGRO : 1950 Requested By: ARNALDO GALINDO Order Number: [id number] Reading MD: Konstantin Jasso MD Measurements Intervals [place] Rate: 101 P: 45 DC: 172 QRS: 44 QRSD: 92 T: 47 QT: 344 QTc: 447 Interpretive Statements SINUS TACHYCARDIA NON-SPECIFIC ST/T CHANGES Electronically Signed On 03-09-2017 15:13:47 CONDOMINIUM MANAGER by Konstantin Jasso MD
[2017-03-09] MEDS: ONDANSETRON PF 4 MG/2 ML VIAL. IV PRN ×2 (07:39→18:55)
[2017-03-09] MEDS: METOPROLOL TART IMMED RELEASE 25 MG TABLET. PO SCH ×2 (08:38→21:22)
[2017-03-09] MEDS: FAMOTIDINE 20 MG TABLET. PO SCH ×2 (08:38→21:23)
[2017-03-09] MEDS: SENNOSIDES/DOCUSATE 8.6/50MG TABLET. PO SCH ×2 (08:38→21:23)
[2017-03-09] MEDS: ASPIRIN ENTERIC COATED 325 MG TABLET.DR. PO SCH (08:38)
--- NOTE | 2017-03-09 08:48 | RAD ---
Portable chest, 03/09/2017: History: Postop CABG Comparison is made to yesterday's study. The ET tube, NG tube and [place]-Sharon catheter have been removed. A right jugular vascular sheath, mediastinal and left chest drains remain in place. The heart size is unchanged. The pulmonary vascularity is within normal limits. There are moderate streaky right basilar opacities compatible with atelectasis. The left lower lobe is better aerated than on yesterday study. There is an opacity laterally in the left base compatible with residual atelectasis and/or pleural fluid. No pneumothorax is seen. IMPRESSION: Moderate bibasilar postoperative opacities as described above, with interval improvement on the left.
[2017-03-09] MEDS: AMIODARONE HCL 200 MG TABLET. PO SCH ×2 (09:00→21:22)
[2017-03-09] MEDS ORDERED: FUROSEMIDE 40 MG/4 ML VIAL. IVP ONE (11:00)
[2017-03-09] MEDS: ALBUMIN HUMAN 5% 250 ML IV SCH ×2 (11:01→12:43)
--- NOTE | 2017-03-09 13:12 | PDOC ---
Progress Note Subjective Subjective Doing very well after fast track extubation yesterday. Normotensive and in sinus rhythm. Mediastinal tube output minimal this morning. Labs noted. Pain well controlled. Borderline urine output 20-30 mL per hour over the last couple of hours, creatinine stable at 1.3. Chest x-ray looks good with expected postoperative findings. ROS ROS No nausea No SOB No vomiting No pain No rash Vital Sign Vital Signs Vital Signs Date Time Temp Pulse Resp B/P (MAP) Pulse Ox O2 Delivery O2 Flow Rate FiO2 03/09/17 12:51 23 94 Nasal Cannula 2.0 03/09/17 08:38 88 126/65 03/09/17 04:00 98.4 98.4 Physical Exam PHYSICAL EXAM GENERAL: NAD, Alert HEENT: PERRL, OC/OP NECK: Supple, no JVD, no LN LUNGS: Clear HEART: S1S2, no gallop, no murmur ABD: Soft, NT, no organomegaly, no rebound EXT: No edema, no cyanosis [employer]INEER: Alert, oriented x 3, no focal neurologic deficit SKIN: No rash IV: ok Labs Lab Laboratory Tests Test 03/08/17 13:18 03/08/17 13:19 03/08/17 13:20 03/08/17 14:09 Activated Clotting Time 123 SEC (90-125) Bedside Hemoglobin (Calculated) 6.8 g/dL (14-18) 8.2 g/dL (14-18) Bedside Hematocrit 20 % (37-52) 24 % (37-52) Bedside Arterial pH 7.34 (7.35-7.45) 7.42 (7.35-7.45) Bedside Arterial pCO2 38 mmHg (35-45) 30 mmHg (35-45) Bedside Arterial pO2 198 mmHg (75-100) 120 mmHg (75-100) Bedside Arterial HCO3 20 mmol/L (21-28) 20 mmol/L (21-28) Bedside Arterial Total CO2 21 mmol/L (21-32) 21 mmol/L (21-32) Arterial Bld O2 Saturation (Measur) 100 % (95-99) 99 % (95-99) Bedside Arterial Blood Base Excess -6 mmol/L (0-3) -5 mmol/L (0-3) Bedside FiO2 100.0 100.0 Bedside Sodium 141 mmol/L (135-145) 142 mmol/L (135-145) Bedside Potassium 3.4 mmol/L (3.5-5.0) 3.4 mmol/L (3.5-5.0) Glucose Level 128 mg/dL (70-99) 122 mg/dL (70-99) Bedside Ionized Calcium (Moisés) 1.67 mmol/L (1.13-1.32) 1.40 mmol/L (1.13-1.32) White Blood Count 15.7 x10^3/uL (4.0-11.0) Red Blood Count 2.48 x10^6/uL (4.30-5.70) Hemoglobin 5.8 g/dL (13.0-17.5) Hematocrit 18.7 % (39.0-53.0) Mean Corpuscular Volume 76 fL (79-100) Mean Corpuscular Hemoglobin 23 pg (25-35) Mean Corpuscular Hemoglobin Concent 31 g/dL (31-37) Red Cell Distribution Width 16.1 % (11.5-14.5) Platelet Count 159 x10^3/uL (140-400) Prothrombin Time 21.3 SEC (11.7-14.0) Prothromb Time International Ratio 2.0 (0.8-1.1) Activated Partial Thromboplast Time 33 SEC (24-38) Fibrinogen 279 mg/dL (200-440) Test 03/08/17 15:00 03/08/17 15:08 03/08/17 15:45 03/08/17 18:07 O2 Saturation 99 % (92-99) Arterial Blood pH 7.41 (7.35-7.45) Arterial Blood pCO2 at Patient Temp 32 mmHg (35-46) Arterial Blood pO2 at Patient Temp 195 mmHg (65-108) Arterial Blood HCO3 20 mmol/L (21-28) Arterial Blood Base Excess -4 mmol/L (-3-3) Oxyhemoglobin 97.8 % Methemoglobin 0.5 % (0.0-1.9) Carbon Monoxide, Quantitative 0.4 % (0.0-1.9) FiO2 100 Glucose (Fingerstick) 111 mg/dL (70-99) 157 mg/dL (70-99) White Blood Count 14.8 x10^3/uL (4.0-11.0) Red Blood Count 3.38 x10^6/uL (4.30-5.70) Hemoglobin 8.1 g/dL (13.0-17.5) Hematocrit 25.5 % (39.0-53.0) Mean Corpuscular Volume 75 fL (79-100) Mean Corpuscular Hemoglobin 24 pg (25-35) Mean Corpuscular Hemoglobin Concent 32 g/dL (31-37) Red Cell Distribution Width 17.2 % (11.5-14.5) Platelet Count 172 x10^3/uL (140-400) Prothrombin Time 17.2 SEC (11.7-14.0) Prothromb Time International Ratio 1.5 (0.8-1.1) Activated Partial Thromboplast Time 46 SEC (24-38) Sodium Level 143 mmol/L (136-145) Potassium Level 3.4 mmol/L (3.5-5.1) Chloride Level 108 mmol/L (98-107) Carbon Dioxide Level 24 mmol/L (21-32) Anion Gap 11 (6-14) Blood Urea Nitrogen 19 mg/dL (8-26) Creatinine 1.4 mg/dL (0.7-1.3) Estimated GFR (Cockcroft-Gault) 50.4 Glucose Level 116 mg/dL (70-99) Calcium Level 9.4 mg/dL (8.5-10.1) Ionized Calcium 1.33 mmol/L (1.13-1.32) Magnesium Level 2.2 mg/dL (1.8-2.4) Test 03/08/17 18:27 03/08/17 19:46 03/08/17 20:47 03/08/17 22:01 O2 Saturation 98 % (92-99) Arterial Blood pH 7.38 (7.35-7.45) Arterial Blood pCO2 at Patient Temp 37 mmHg (35-46) Arterial Blood pO2 at Patient Temp 127 mmHg (65-108) Arterial Blood HCO3 21 mmol/L (21-28) Arterial Blood Base Excess -3 mmol/L (-3-3) FiO2 40 Glucose (Fingerstick) 165 mg/dL (70-99) 158 mg/dL (70-99) 148 mg/dL (70-99) Test 03/08/17 22:05 03/08/17 23:05 03/09/17 00:05 03/09/17 01:09 Hemoglobin 8.7 g/dL (13.0-17.5) Hematocrit 27.3 % (39.0-53.0) Mean Corpuscular Hemoglobin Concent 32 g/dL (31-37) Potassium Level 4.4 mmol/L (3.5-5.1) Glucose (Fingerstick) 157 mg/dL (70-99) 165 mg/dL (70-99) 145 mg/dL (70-99) Test 03/09/17 02:12 03/09/17 03:14 03/09/17 04:17 03/09/17 04:19 Glucose (Fingerstick) 152 mg/dL (70-99) 146 mg/dL (70-99) 139 mg/dL (70-99) White Blood Count 12.0 x10^3/uL (4.0-11.0) Red Blood Count 3.50 x10^6/uL (4.30-5.70) Hemoglobin 8.5 g/dL (13.0-17.5) Hematocrit 26.5 % (39.0-53.0) Mean Corpuscular Volume 76 fL (79-100) Mean Corpuscular Hemoglobin 24 pg (25-35) Mean Corpuscular Hemoglobin Concent 32 g/dL (31-37) Red Cell Distribution Width 17.1 % (11.5-14.5) Platelet Count 170 x10^3/uL (140-400) Sodium Level 140 mmol/L (136-145) Potassium Level 4.1 mmol/L (3.5-5.1) Chloride Level 108 mmol/L (98-107) Carbon Dioxide Level 26 mmol/L (21-32) Anion Gap 6 (6-14) Blood Urea Nitrogen 19 mg/dL (8-26) Creatinine 1.3 mg/dL (0.7-1.3) Estimated GFR (Cockcroft-Gault) 54.9 Glucose Level 148 mg/dL (70-99) Calcium Level 8.5 mg/dL (8.5-10.1) Magnesium Level 2.2 mg/dL (1.8-2.4) Test 03/09/17 08:33 03/09/17 10:28 03/09/17 12:45 Glucose (Fingerstick) 160 mg/dL (70-99) 134 mg/dL (70-99) 122 mg/dL (70-99) Objective Assessment POD#1, s/p CABG x 3 (SHELL to LAD, SVG to OM1, SVg to OM2) Doing very well after fast track extubation yesterday. Normotensive and in sinus rhythm. Mediastinal tube output minimal this morning. Labs noted. Pain well controlled. Borderline urine output 20-30 mL per hour over the last couple of hours, creatinine stable at 1.3. Chest x-ray looks good with expected postoperative findings. Plan Plan of Care D/c mediastinal tubes D/c a-line D/c swan-keily Fluid bolus with albumin 500 MLS, followed by 40mg IV Lasix 1 Switch amiodarone drip to po ASA, beta lance and statin PT OT consult Ambulation and incentive spirometry Hammonds will stay in until patient has seen a urologist, owing to his urethral stricture ARNALDO GALINDO MD Mar 09, 2017 13:12
--- NOTE | 2017-03-09 15:33 | RAD ---
Portable chest, 03/09/2017, 3:18 PM: History: Postop CABG, left-sided chest pain Comparison is made to a study from earlier the same day. The mediastinal drains have been removed. A right jugular vascular sheath and a left chest tube remain in place. The heart size is unchanged. The pulmonary vascularity is normal. There is in unchanged moderate left basilar opacity suggesting atelectasis/infiltrate and possible pleural fluid. There is moderate streaky atelectasis in the right base. The upper lung gilliam remain clear. There is no evidence of pneumothorax. No new abnormality is detected. IMPRESSION: Moderate postoperative bibasilar opacities are unchanged since earlier in the day.
--- NOTE | 2017-03-09 17:18 | PDOC ---
PROGRESS NOTES Subjective Subjective The patient is extubated. Complaints of some pain but wants to get up and walk. Objective Objective Vital Signs Date Time Temp Pulse Resp B/P (MAP) Pulse Ox O2 Delivery O2 Flow Rate FiO2 03/09/17 15:40 31 92 Nasal Cannula 2.0 03/09/17 15:00 96 123/67 (85) 03/09/17 13:00 98.6 98.6 Intake and Output 03/10/17 07:00 Intake Total 600 ml Output Total 446 ml Balance 154 ml Intake Oral 600 ml Output Urine Total 218 ml Chest Tube Drainage Total 228 ml Physical Exam Physical Exam Moving air well. No significant changes in cardiac exam Assessment Assessment Patient having an excellent progress post CABG. I agree with present plan. Comment Review of Relevant I have reviewed the following items mckenzie (where applicable) has been applied. Labs Laboratory Tests Test 03/08/17 08:43 03/08/17 08:44 03/08/17 10:07 03/08/17 11:03 Activated Clotting Time 100 SEC (90-125) 496 SEC (90-125) 410 SEC (90-125) Bedside Hemoglobin (Calculated) 8.8 g/dL (14-18) 7.8 g/dL (14-18) Bedside Hematocrit 26 % (37-52) 23 % (37-52) Bedside Arterial pH 7.41 (7.35-7.45) 7.41 (7.35-7.45) Bedside Arterial pCO2 38 mmHg (35-45) 34 mmHg (35-45) Bedside Arterial pO2 218 mmHg (75-100) 223 mmHg (75-100) Bedside Arterial HCO3 24 mmol/L (21-28) 21 mmol/L (21-28) Bedside Arterial Total CO2 25 mmol/L (21-32) 22 mmol/L (21-32) Arterial Bld O2 Saturation (Measur) 100 % (95-99) 100 % (95-99) Bedside Arterial Blood Base Excess 0 mmol/L (0-3) -4 mmol/L (0-3) Bedside FiO2 100.0 100.0 Bedside Sodium 137 mmol/L (135-145) 138 mmol/L (135-145) Bedside Potassium 3.7 mmol/L (3.5-5.0) 3.7 mmol/L (3.5-5.0) Glucose Level 123 mg/dL (70-99) 131 mg/dL (70-99) Bedside Ionized Calcium (Moisés) 1.19 mmol/L (1.13-1.32) 1.15 mmol/L (1.13-1.32) Test 03/08/17 11:10 03/08/17 11:31 03/08/17 12:01 03/08/17 12:33 Bedside Hemoglobin (Calculated) 7.5 g/dL (14-18) 8.5 g/dL (14-18) 8.5 g/dL (14-18) 8.5 g/dL (14-18) Bedside Hematocrit 22 % (37-52) 25 % (37-52) 25 % (37-52) 25 % (37-52) Bedside Arterial pH 7.41 (7.35-7.45) 7.38 (7.35-7.45) 7.30 (7.35-7.45) 7.43 (7.35-7.45) Bedside Arterial pCO2 32 mmHg (35-45) 38 mmHg (35-45) 53 mmHg (35-45) 35 mmHg (35-45) Bedside Arterial pO2 286 mmHg (75-100) 252 mmHg (75-100) 241 mmHg (75-100) 358 mmHg (75-100) Bedside Arterial HCO3 21 mmol/L (21-28) 22 mmol/L (21-28) 26 mmol/L (21-28) 23 mmol/L (21-28) Bedside Arterial Total CO2 22 mmol/L (21-32) 23 mmol/L (21-32) 28 mmol/L (21-32) 24 mmol/L (21-32) Arterial Bld O2 Saturation (Measur) 100 % (95-99) 100 % (95-99) 100 % (95-99) 100 % (95-99) Bedside Arterial Blood Base Excess -4 mmol/L (0-3) -3 mmol/L (0-3) -1 mmol/L (0-3) -1 mmol/L (0-3) Bedside FiO2 80.0 70.0 70.0 80.0 Bedside Sodium 136 mmol/L (135-145) 137 mmol/L (135-145) 138 mmol/L (135-145) 135 mmol/L (135-145) Bedside Potassium 4.7 mmol/L (3.5-5.0) 4.1 mmol/L (3.5-5.0) 4.2 mmol/L (3.5-5.0) 4.1 mmol/L (3.5-5.0) Glucose Level 137 mg/dL (70-99) 165 mg/dL (70-99) 184 mg/dL (70-99) 181 mg/dL (70-99) Bedside Ionized Calcium (Moisés) 1.07 mmol/L (1.13-1.32) 1.11 mmol/L (1.13-1.32) 1.13 mmol/L (1.13-1.32) 1.84 mmol/L (1.13-1.32) Activated Clotting Time 354 SEC (90-125) 469 SEC (90-125) 480 SEC (90-125) Test 03/08/17 13:18 03/08/17 13:19 03/08/17 13:20 03/08/17 14:09 Activated Clotting Time 123 SEC (90-125) Bedside Hemoglobin (Calculated) 6.8 g/dL (14-18) 8.2 g/dL (14-18) Bedside Hematocrit 20 % (37-52) 24 % (37-52) Bedside Arterial pH 7.34 (7.35-7.45) 7.42 (7.35-7.45) Bedside Arterial pCO2 38 mmHg (35-45) 30 mmHg (35-45) Bedside Arterial pO2 198 mmHg (75-100) 120 mmHg (75-100) Bedside Arterial HCO3 20 mmol/L (21-28) 20 mmol/L (21-28) Bedside Arterial Total CO2 21 mmol/L (21-32) 21 mmol/L (21-32) Arterial Bld O2 Saturation (Measur) 100 % (95-99) 99 % (95-99) Bedside Arterial Blood Base Excess -6 mmol/L (0-3) -5 mmol/L (0-3) Bedside FiO2 100.0 100.0 Bedside Sodium 141 mmol/L (135-145) 142 mmol/L (135-145) Bedside Potassium 3.4 mmol/L (3.5-5.0) 3.4 mmol/L (3.5-5.0) Glucose Level 128 mg/dL (70-99) 122 mg/dL (70-99) Bedside Ionized Calcium (Moisés) 1.67 mmol/L (1.13-1.32) 1.40 mmol/L (1.13-1.32) White Blood Count 15.7 x10^3/uL (4.0-11.0) Red Blood Count 2.48 x10^6/uL (4.30-5.70) Hemoglobin 5.8 g/dL (13.0-17.5) Hematocrit 18.7 % (39.0-53.0) Mean Corpuscular Volume 76 fL (79-100) Mean Corpuscular Hemoglobin 23 pg (25-35) Mean Corpuscular Hemoglobin Concent 31 g/dL (31-37) Red Cell Distribution Width 16.1 % (11.5-14.5) Platelet Count 159 x10^3/uL (140-400) Prothrombin Time 21.3 SEC (11.7-14.0) Prothromb Time International Ratio 2.0 (0.8-1.1) Activated Partial Thromboplast Time 33 SEC (24-38) Fibrinogen 279 mg/dL (200-440) Test 03/08/17 15:00 03/08/17 15:08 03/08/17 15:45 03/08/17 18:07 O2 Saturation 99 % (92-99) Arterial Blood pH 7.41 (7.35-7.45) Arterial Blood pCO2 at Patient Temp 32 mmHg (35-46) Arterial Blood pO2 at Patient Temp 195 mmHg (65-108) Arterial Blood HCO3 20 mmol/L (21-28) Arterial Blood Base Excess -4 mmol/L (-3-3) Oxyhemoglobin 97.8 % Methemoglobin 0.5 % (0.0-1.9) Carbon Monoxide, Quantitative 0.4 % (0.0-1.9) FiO2 100 Glucose (Fingerstick) 111 mg/dL (70-99) 157 mg/dL (70-99) White Blood Count 14.8 x10^3/uL (4.0-11.0) Red Blood Count 3.38 x10^6/uL (4.30-5.70) Hemoglobin 8.1 g/dL (13.0-17.5) Hematocrit 25.5 % (39.0-53.0) Mean Corpuscular Volume 75 fL (79-100) Mean Corpuscular Hemoglobin 24 pg (25-35) Mean Corpuscular Hemoglobin Concent 32 g/dL (31-37) Red Cell Distribution Width 17.2 % (11.5-14.5) Platelet Count 172 x10^3/uL (140-400) Prothrombin Time 17.2 SEC (11.7-14.0) Prothromb Time International Ratio 1.5 (0.8-1.1) Activated Partial Thromboplast Time 46 SEC (24-38) Sodium Level 143 mmol/L (136-145) Potassium Level 3.4 mmol/L (3.5-5.1) Chloride Level 108 mmol/L (98-107) Carbon Dioxide Level 24 mmol/L (21-32) Anion Gap 11 (6-14) Blood Urea Nitrogen 19 mg/dL (8-26) Creatinine 1.4 mg/dL (0.7-1.3) Estimated GFR (Cockcroft-Gault) 50.4 Glucose Level 116 mg/dL (70-99) Calcium Level 9.4 mg/dL (8.5-10.1) Ionized Calcium 1.33 mmol/L (1.13-1.32) Magnesium Level 2.2 mg/dL (1.8-2.4) Test 03/08/17 18:27 03/08/17 19:46 03/08/17 20:47 03/08/17 22:01 O2 Saturation 98 % (92-99) Arterial Blood pH 7.38 (7.35-7.45) Arterial Blood pCO2 at Patient Temp 37 mmHg (35-46) Arterial Blood pO2 at Patient Temp 127 mmHg (65-108) Arterial Blood HCO3 21 mmol/L (21-28) Arterial Blood Base Excess -3 mmol/L (-3-3) FiO2 40 Glucose (Fingerstick) 165 mg/dL (70-99) 158 mg/dL (70-99) 148 mg/dL (70-99) Test 03/08/17 22:05 03/08/17 23:05 03/09/17 00:05 03/09/17 01:09 Hemoglobin 8.7 g/dL (13.0-17.5) Hematocrit 27.3 % (39.0-53.0) Mean Corpuscular Hemoglobin Concent 32 g/dL (31-37) Potassium Level 4.4 mmol/L (3.5-5.1) Glucose (Fingerstick) 157 mg/dL (70-99) 165 mg/dL (70-99) 145 mg/dL (70-99) Test 03/09/17 02:12 03/09/17 03:14 03/09/17 04:17 03/09/17 04:19 Glucose (Fingerstick) 152 mg/dL (70-99) 146 mg/dL (70-99) 139 mg/dL (70-99) White Blood Count 12.0 x10^3/uL (4.0-11.0) Red Blood Count 3.50 x10^6/uL (4.30-5.70) Hemoglobin 8.5 g/dL (13.0-17.5) Hematocrit 26.5 % (39.0-53.0) Mean Corpuscular Volume 76 fL (79-100) Mean Corpuscular Hemoglobin 24 pg (25-35) Mean Corpuscular Hemoglobin Concent 32 g/dL (31-37) Red Cell Distribution Width 17.1 % (11.5-14.5) Platelet Count 170 x10^3/uL (140-400) Sodium Level 140 mmol/L (136-145) Potassium Level 4.1 mmol/L (3.5-5.1) Chloride Level 108 mmol/L (98-107) Carbon Dioxide Level 26 mmol/L (21-32) Anion Gap 6 (6-14) Blood Urea Nitrogen 19 mg/dL (8-26) Creatinine 1.3 mg/dL (0.7-1.3) Estimated GFR (Cockcroft-Gault) 54.9 Glucose Level 148 mg/dL (70-99) Calcium Level 8.5 mg/dL (8.5-10.1) Magnesium Level 2.2 mg/dL (1.8-2.4) Test 03/09/17 08:33 03/09/17 10:28 03/09/17 12:45 03/09/17 13:53 Glucose (Fingerstick) 160 mg/dL (70-99) 134 mg/dL (70-99) 122 mg/dL (70-99) 112 mg/dL (70-99) Test 03/09/17 15:10 03/09/17 16:34 Glucose (Fingerstick) 137 mg/dL (70-99) 134 mg/dL (70-99) Laboratory Tests Test 03/08/17 18:07 03/08/17 18:27 03/08/17 19:46 03/08/17 20:47 Glucose (Fingerstick) 157 mg/dL (70-99) 165 mg/dL (70-99) 158 mg/dL (70-99) O2 Saturation 98 % (92-99) Arterial Blood pH 7.38 (7.35-7.45) Arterial Blood pCO2 at Patient Temp 37 mmHg (35-46) Arterial Blood pO2 at Patient Temp 127 mmHg (65-108) Arterial Blood HCO3 21 mmol/L (21-28) Arterial Blood Base Excess -3 mmol/L (-3-3) FiO2 40 Test 03/08/17 22:01 03/08/17 22:05 03/08/17 23:05 03/09/17 00:05 Glucose (Fingerstick) 148 mg/dL (70-99) 157 mg/dL (70-99) 165 mg/dL (70-99) Hemoglobin 8.7 g/dL (13.0-17.5) Hematocrit 27.3 % (39.0-53.0) Mean Corpuscular Hemoglobin Concent 32 g/dL (31-37) Potassium Level 4.4 mmol/L (3.5-5.1) Test 03/09/17 01:09 03/09/17 02:12 03/09/17 03:14 03/09/17 04:17 Glucose (Fingerstick) 145 mg/dL (70-99) 152 mg/dL (70-99) 146 mg/dL (70-99) 139 mg/dL (70-99) Test 03/09/17 04:19 03/09/17 08:33 03/09/17 10:28 03/09/17 12:45 White Blood Count 12.0 x10^3/uL (4.0-11.0) Red Blood Count 3.50 x10^6/uL (4.30-5.70) Hemoglobin 8.5 g/dL (13.0-17.5) Hematocrit 26.5 % (39.0-53.0) Mean Corpuscular Volume 76 fL (79-100) Mean Corpuscular Hemoglobin 24 pg (25-35) Mean Corpuscular Hemoglobin Concent 32 g/dL (31-37) Red Cell Distribution Width 17.1 % (11.5-14.5) Platelet Count 170 x10^3/uL (140-400) Sodium Level 140 mmol/L (136-145) Potassium Level 4.1 mmol/L (3.5-5.1) Chloride Level 108 mmol/L (98-107) Carbon Dioxide Level 26 mmol/L (21-32) Anion Gap 6 (6-14) Blood Urea Nitrogen 19 mg/dL (8-26) Creatinine 1.3 mg/dL (0.7-1.3) Estimated GFR (Cockcroft-Gault) 54.9 Glucose Level 148 mg/dL (70-99) Calcium Level 8.5 mg/dL (8.5-10.1) Magnesium Level 2.2 mg/dL (1.8-2.4) Glucose (Fingerstick) 160 mg/dL (70-99) 134 mg/dL (70-99) 122 mg/dL (70-99) Test 03/09/17 13:53 03/09/17 15:10 03/09/17 16:34 Glucose (Fingerstick) 112 mg/dL (70-99) 137 mg/dL (70-99) 134 mg/dL (70-99) Medications Current Medications Ondansetron HCl (Zofran) 4 mg PRN Q6HRS PRN IV NAUSEA/VOMITING Last administered on 03/08/17 19:17; Start 03/08/17 at 07:00; Stop 03/09/17 at 06 :59; Status DC Fentanyl Citrate (Fentanyl 2ml Vial) 25 mcg PRN Q5MIN PRN IV MILD PAIN; Start 03/08/17 at 07:00; Stop 03/09/17 at 06:59; Status DC Fentanyl Citrate (Fentanyl 2ml Vial) 50 mcg PRN Q5MIN PRN IV MODERATE PAIN; Start 03/08/17 at 07:00; Stop 03/09/17 at 06:59; Status DC Morphine Sulfate 1 mg PRN Q10MIN PRN IV SEVERE PAIN Last administered on 17:22; Start 03/08/17 at 07:00; Stop 03/09/17 at 06:59; Status DC Ringer's Solution 1,000 ml @ 0 mls/hr Q0M IV Last administered on 03/08/17t 06:18; Start 03/08/17 at 07:00; Stop 03/08/17 at 18:59; Status DC Lidocaine HCl (Xylocaine-Mpf 1% Vial) 2 ml PRN 1X PRN ID PRIOR TO IV START; Start 03/08/17 at 07:00; Stop 03/09/17 at 06:59; Status DC Hydromorphone HCl (Dilaudid) 0.5 mg PRN Q10MIN PRN IV SEV PAIN, Second choice; Start 03/08/17 at 07:00; Stop 03/09/17 at 06:59; Status DC Prochlorperazine Edisylate (Compazine) 5 mg PACU PRN PRN IV NAUSEA, MRX1; Start 03/08/17 at 07:00; Stop 03/09/17 at 06:59; Status DC Cefazolin Sodium/ Dextrose 50 ml @ As Directed STK-MED ONCE IV ; Start at 06:22; Stop 03/08/17 at 06:23; Status DC Lidocaine HCl (Lidocaine Pf 2% Vial) 5 ml STK-MED ONCE .ROUTE ; Start 03/08/17 at 06:48; Stop 03/08/17 at 06:49; Status DC Phenylephrine HCl (Alvarez-Synephrine Inj) 10 mg STK-MED ONCE .ROUTE ; Start at 06:48; Stop 03/08/17 at 06:49; Status DC Etomidate (Amidate) 20 mg STK-MED ONCE IV ; Start 03/08/17 at 06:48; Stop at 06:49; Status DC Nitroglycerin/ Dextrose 250 ml @ As Directed STK-MED ONCE IV ; Start 03/08/17 at 06:48; Stop 03/08/17 at 06:49; Status DC Rocuronium [place] (Zemuron) 100 mg STK-MED ONCE .ROUTE ; Start 03/08/17 at 06: 49; Stop 03/08/17 at 06:50; Status DC Sufentanil Citrate (Sufenta) 100 mcg STK-MED ONCE .ROUTE ; Start 03/08/17 at 06 :49; Stop 03/08/17 at 06:50; Status DC Midazolam HCl (Versed) 2 mg STK-MED ONCE .ROUTE ; Start 03/08/17 at 06:49; Stop 03/08/17 at 06:50; Status DC Heparin Sodium (Porcine) 30,000 unit STK-MED ONCE .ROUTE ; Start 03/08/17 at 06 :50; Stop 03/08/17 at 06:51; Status DC Aminocaproic Acid (Amicar) 5,000 mg STK-MED ONCE IV ; Start 03/08/17 at 06:50; Stop 03/08/17 at 06:51; Status DC Sufentanil Citrate (Sufenta) 250 mcg STK-MED ONCE .ROUTE ; Start 03/08/17 at 07 :04; Stop 03/08/17 at 07:05; Status DC Vancomycin HCl (Vanco) 10 gm STK-MED ONCE .ROUTE Last administered on 08:59; Start 03/08/17 at 07:38; Stop 03/08/17 at 07:39; Status DC Cellulose 1 each STK-MED ONCE .ROUTE Last administered on 03/08/17 08:59; Start 03/08/17 at 07:38; Stop 03/08/17 at 07:39; Status DC Papaverine HCl 60 mg STK-MED ONCE .ROUTE Last administered on 03/08/17 08:59 ; Start 03/08/17 at 07:38; Stop 03/08/17 at 07:39; Status DC Aspirin (Aspirin) 300 mg STK-MED ONCE .ROUTE Last administered on 03/08/17 14 :19; Start 03/08/17 at 07:38; Stop 03/08/17 at 07:39; Status DC Sodium Chloride (Sodium Chloride) 50 ml STK-MED ONCE IJ Last administered on 08:59; Start 03/08/17 at 07:39; Stop 03/08/17 at 07:40; Status DC Cefazolin Sodium/ Dextrose 50 ml @ 100 mls/hr 1X PREOP IV ; Start 03/08/17 at 07:45; Stop 03/09/17 at 18:00 Potassium Chloride 70 meq/ Sodium Bicarbonate 12.5 meq/Lidocaine HCl 24 ml/ Parenteral Electrolytes 571.5 ml @ 571.5 mls/ hr 1X PERIOP ONCE IRR Last administered on 03/08/17 10:53; Start 03/08/17 at 06:00; Stop 03/08/17 at 07 :45; Status DC Potassium Chloride 15 meq/ Sodium Bicarbonate 12.5 meq/Parenteral Electrolytes 520 ml @ 520 mls/hr 1X PERIOP ONCE IRR Last administered on 03/08/17 10:53 ; Start 03/08/17 at 06:00; Stop 03/08/17 at 07:45; Status DC Cefazolin Sodium 1 gm/Sodium Chloride 500 ml @ 500 mls/hr 1X PERIOP ONCE IRR Last administered on 03/08/17 08:58; Start 03/08/17 at 06:00; Stop 03/08/17 at 07:45; Status DC Heparin Sodium (Porcine) 40032 unit/Ringer's Solution 1,020 ml @ 1,020 mls/hr 1X PERIOP ONCE IRR Last administered on 03/08/17 08:58; Start 03/08/17 at 06:00; Stop 03/08/17 at 07:45; Status DC Midazolam HCl (Versed) 2 mg STK-MED ONCE .ROUTE ; Start 03/08/17 at 08:14; Stop 03/08/17 at 08:15; Status DC Insulin Human Regular 150 unit/ Sodium Chloride 151.5 ml @ 9.59 mls/hr CONT PRN IV SEE I/O RECORD Last administered on 03/08/17 18:15; Start 03/08/17 at 09:30 Rocuronium [place] (Zemuron) 100 mg STK-MED ONCE .ROUTE ; Start 03/08/17 at 09: 32; Stop 03/08/17 at 09:33; Status DC Heparin Sodium (Porcine) (Heparin Sodium) 10,000 unit STK-MED ONCE .ROUTE ; Start 03/08/17 at 09:32; Stop 03/08/17 at 09:33; Status DC Rocuronium [place] (Zemuron) 100 mg STK-MED ONCE .ROUTE ; Start 03/08/17 at 11: 34; Stop 03/08/17 at 11:35; Status DC Midazolam HCl (Versed) 2 mg STK-MED ONCE .ROUTE ; Start 03/08/17 at 12:09; Stop 03/08/17 at 12:10; Status DC Protamine Sulfate 250 mg STK-MED ONCE IV ; Start 03/08/17 at 12:23; Stop 03/08 at 12:24; Status DC Propofol 100 ml @ As Directed STK-MED ONCE IV ; Start 03/08/17 at 12:24; Stop 03/08/17 at 12:25; Status DC Protamine Sulfate 250 mg STK-MED ONCE IV ; Start 03/08/17 at 12:26; Stop 03/08 at 12:27; Status DC Cefazolin Sodium/ Dextrose (Ancef 2gm Premix) 2 gm STK-MED ONCE IV ; Start at 06:30; Stop 03/08/17 at 12:28; Status DC Calcium Chloride 1,000 mg STK-MED ONCE IV ; Start 03/08/17 at 12:51; Stop at 12:52; Status DC Calcium Chloride 1,000 mg STK-MED ONCE IV ; Start 03/08/17 at 12:54; Stop at 12:55; Status DC Calcium Chloride 1,000 mg STK-MED ONCE IV ; Start 03/08/17 at 12:54; Stop at 12:55; Status DC Heparin Sodium (Porcine) (Heparin Sodium) 10,000 unit STK-MED ONCE .ROUTE ; Start 03/08/17 at 12:54; Stop 03/08/17 at 12:55; Status DC Heparin Sodium (Porcine) (Heparin Sodium) 10,000 unit STK-MED ONCE .ROUTE ; Start 03/08/17 at 12:54; Stop 03/08/17 at 12:55; Status DC Heparin Sodium (Porcine) 30,000 unit STK-MED ONCE .ROUTE ; Start 03/08/17 at 12 :54; Stop 03/08/17 at 12:55; Status DC Lidocaine HCl (Lidocaine Pf 2% Vial) 5 ml STK-MED ONCE .ROUTE ; Start 03/08/17 at 12:54; Stop 03/08/17 at 12:55; Status DC Magnesium Sulfate 5 gm STK-MED ONCE .ROUTE ; Start 03/08/17 at 12:55; Stop at 12:56; Status DC Mannitol (Mannitol) 12.5 g STK-MED ONCE .ROUTE ; Start 03/08/17 at 12:55; Stop 03/08/17 at 12:56; Status DC Albumin Human 100 ml @ As Directed STK-MED ONCE IV ; Start 03/08/17 at 12:55; Stop 03/08/17 at 12:56; Status DC Sodium Chloride (Normal Saline Flush) 3 ml PRN Q12HR PRN IV AFTER MEDS AND BLOOD DRAWS; Start 03/08/17 at 13:00 Ringer's Solution 1,000 ml @ 30 mls/hr Q24H IV Last administered on 15:04; Start 03/08/17 at 12:47 Albumin Human 250 ml @ 60 mls/hr PRN Q4HRS PRN IV SEE I/O RECORD; Start 03/08 at 13:00 Insulin Human Regular 150 unit/ Sodium Chloride 151.5 ml @ 0 mls/hr CONT PRN PRN IV SEE I/O RECORD; Start 03/08/17 at 13:00; Stop 03/09/17 at 08:28; Status DC Dextrose (Dextrose 50%-Water Syringe) 25 gm PRN Q15MIN PRN IV LOW BLOOD SUGAR; Start 03/08/17 at 13:00 Amiodarone HCl (Cordarone) 400 mg BID PO ; Start 03/09/17 at 09:00 Info 1 ea CONT PRN PRN MC SEE COMMENTS; Start 03/08/17 at 13:00 Info 1 ea CONT PRN PRN MC SEE COMMENTS; Start 03/08/17 at 13:00 Magnesium Sulfate/ Dextrose 100 ml @ 100 mls/hr PRN DAILY PRN IV FOR MAG < 2.2 ; Start 03/08/17 at 13:00 Famotidine (Pepcid Vial) 20 mg BID IVP Last administered on 03/08/17 21:03; Start 03/08/17 at 21:00; Stop 03/09/17 at 07:10; Status DC Ondansetron HCl (Zofran) 4 mg PRN Q4HRS PRN IV NAUSEA/VOMITING Last administered on 03/09/17 07:39; Start 03/08/17 at 13:00 Prochlorperazine Edisylate (Compazine) 10 mg PRN Q6HRS PRN IV NAUSEA/VOMITING Last administered on 03/08/17 21:04; Start 03/08/17 at 13:00 Morphine Sulfate 2 mg PRN Q1HR PRN IV PAIN Last administered on 03/09/17 15: 08; Start 03/08/17 at 13:00 Acetaminophen (Tylenol) 650 mg PRN Q4HRS PRN PO MILD PAIN / TEMP; Start at 13:00 Acetaminophen (Acetaminophen Supp) 650 mg PRN Q4HRS PRN MO MILD PAIN / TEMP; Start 03/08/17 at 13:00 Meperidine HCl (Demerol) 12.5 mg PRN Q15MIN PRN IV SHIVERING; Start 03/08/17 at 13:00; Stop 03/09/17 at 12:47; Status DC Senna/Docusate Sodium (Senna Plus) 1 tab BID PO Last administered on 08:38; Start 03/08/17 at 21:00 Bisacodyl (Dulcolax Supp) 10 mg PRN DAILY PRN MO NO BOWEL MOVEMENT; Start at 13:00 Aspirin (Ecotrin) 325 mg DAILYWBKFT PO Last administered on 03/09/17 08:38; Start 03/09/17 at 08:00 Metoprolol Tartrate (Lopressor) 25 mg BID PO Last administered on 03/09/17 08 :38; Start 03/09/17 at 09:00 Nicardipine HCl 50 mg/Sodium Chloride 270 ml @ 0 mls/hr CONT PRN PRN IV PER PROTOCOL; Start 03/08/17 at 13:00; Stop 03/08/17 at 14:46; Status DC Oxycodone/ Acetaminophen (Percocet 5/325) 1 tab PRN Q4HRS PRN PO MILD PAIN; Start 03/08/17 at 13:00 Oxycodone/ Acetaminophen (Percocet 5/325) 2 tab PRN Q4HRS PRN PO MODERATE PAIN , SEVERE PAIN Last administered on 03/09/17 12:51; Start 03/08/17 at 13:00 Cefazolin Sodium 1 gm/Dextrose 50 ml @ 100 mls/hr Q8H IV ; Start 03/08/17 at 13:00; Stop 03/08/17 at 14:57; Status DC Sodium Bicarbonate 50 meq STK-MED ONCE .ROUTE ; Start 03/08/17 at 12:56; Stop 03/08/17 at 12:57; Status DC Albumin Human 500 ml @ As Directed STK-MED ONCE IV ; Start 03/08/17 at 13:08; Stop 03/08/17 at 13:09; Status DC Rocuronium [place] (Zemuron) 50 mg STK-MED ONCE .ROUTE ; Start 03/08/17 at 13: 27; Stop 03/08/17 at 13:28; Status DC Phenylephrine HCl (Alvarez-Synephrine Inj) 10 mg STK-MED ONCE .ROUTE ; Start at 14:15; Stop 03/08/17 at 14:16; Status DC Phenylephrine HCl (Alvarez-Synephrine Inj) 10 mg STK-MED ONCE .ROUTE ; Start at 14:15; Stop 03/08/17 at 14:16; Status DC Clevidipine 100 ml @ 0 mls/hr CONT PRN IV PER PROTOCOL Last administered on 15:02; Start 03/08/17 at 14:30 Amiodarone HCl 150 mg/Dextrose 103 ml @ 618 mls/hr 1X ONCE IV Last administered on 03/08/17 15:30; Start 03/08/17 at 14:30; Stop 03/08/17 at 14 :49; Status DC Amiodarone HCl 900 mg/Dextrose 518 ml @ 0 mls/hr CONT PRN IV SEE I/O RECORD Last administered on 03/08/17 15:29; Start 03/08/17 at 14:30; Stop 03/08/17 at 15:30; Status DC Clevidipine 100 ml @ 0 mls/hr CONT PRN IV PER PROTOCOL; Start 03/08/17 at 14: 30; Status UNV Cefazolin Sodium (Ancef) 1 gm Q8H IVP Last administered on 03/09/17 13:27; Start 03/08/17 at 16:30; Stop 03/10/17 at 05:01 Sodium Bicarbonate 50 meq 1X ONCE IV Last administered on 03/08/17 16:14; Start 03/08/17 at 16:00; Stop 03/08/17 at 16:03; Status DC Potassium Chloride 50 ml @ 50 mls/hr Q1H IV Last administered on 03/08/17 19: 49; Start 03/08/17 at 16:30; Stop 03/08/17 at 19:29; Status DC Potassium Chloride 50 ml @ 50 mls/hr 1X ONCE IV ; Start 03/08/17 at 16:30; Stop 03/08/17 at 17:29; Status UNV Potassium Chloride 50 ml @ 50 mls/hr 1X ONCE IV Last administered on 05:28; Start 03/09/17 at 05:30; Stop 03/09/17 at 06:29; Status DC Famotidine (Pepcid) 20 mg BID PO Last administered on 03/09/17 08:38; Start 03/09/17 at 09:00 Furosemide (Lasix) 40 mg 1X ONCE IVP Last administered on 03/09/17 13:24; Start 03/09/17 at 11:00; Stop 03/09/17 at 11:01; Status DC Albumin Human 250 ml @ 250 mls/hr Q1HR IV Last administered on 03/09/17 12: 43; Start 03/09/17 at 11:00; Stop 03/09/17 at 12:59; Status DC Active Scripts Active Reported Aspirin Ec (Aspirin) 325 Mg Tablet. 1 Tab PO DAILY Lisinopril 20 Mg Tablet 1 Tab PO DAILY Metoprolol Tartrate 25 Mg Tablet 25 Mg PO BID Vitals/I & O Vital Sign - Last 24 Hours 03/08/17 03/08/17 03/08/17 03/08/17 17:20 17:22 17:52 18:00 Resp 15 14 Pulse Ox 100 100 100 O2 Delivery Ventilator Ventilator Ventilator Ventilator 03/08/17 03/08/17 03/08/17 03/08/17 18:00 18:45 19:00 19:18 Temp 98.7 98.6 98.7 98.6 Pulse 98 104 Resp 16 14 16 B/P (MAP) 114/50 (71) 131/53 (79) Pulse Ox 99 93 93 O2 Delivery Ventilator Nasal Cannula Nasal Cannula Nasal Cannula O2 Flow Rate 4.0 4.0 4.0 03/08/17 03/08/17 03/08/17 03/08/17 20:00 20:00 21:00 21:40 Temp 98.2 98.6 98.2 98.6 Pulse 100 100 Resp 18 16 14 B/P (MAP) 128/53 (78) 138/56 (83) Pulse Ox 97 97 97 O2 Delivery Nasal Cannula Nasal Cannula Nasal Cannula Nasal Cannula O2 Flow Rate 4.0 4.0 4.0 4.0 03/08/17 03/08/17 03/08/17 03/09/17 22:00 23:00 23:59 00:00 Temp 98.8 98.8 98.9 98.8 98.8 98.9 Pulse 102 102 98 Resp 18 18 12 B/P (MAP) 144/58 (86) 146/58 (87) 134/56 (82) Pulse Ox 97 96 97 O2 Delivery Nasal Cannula Nasal Cannula Nasal Cannula Nasal Cannula O2 Flow Rate 4.0 4.0 4.0 4.0 03/09/17 03/09/17 03/09/17 03/09/17 01:00 02:00 03:00 03:10 Temp 98.9 98.8 98.6 98.9 98.8 98.6 Pulse 99 92 88 Resp 12 14 16 16 B/P (MAP) 136/53 (80) 130/53 (78) 129/52 (77) Pulse Ox 97 96 97 92 O2 Delivery Nasal Cannula Nasal Cannula Nasal Cannula Nasal Cannula O2 Flow Rate 4.0 4.0 4.0 4.0 03/09/17 03/09/17 03/09/17 03/09/17 03:51 04:00 05:00 05:29 Temp 98.4 98.4 Pulse 86 92 Resp 14 19 19 B/P (MAP) 129/52 (77) 125/64 (84) Pulse Ox 96 94 96 O2 Delivery Nasal Cannula Nasal Cannula Nasal Cannula Nasal Cannula O2 Flow Rate 4.0 4.0 4.0 4.0 03/09/17 03/09/17 03/09/17 03/09/17 06:00 07:00 08:00 08:00 Pulse 85 78 79 Resp 24 18 22 B/P (MAP) 133/63 (86) 119/62 (81) 121/54 (76) Pulse Ox 100 100 99 O2 Delivery Nasal Cannula Nasal Cannula Nasal Cannula Nasal Cannula O2 Flow Rate 4.0 3.0 3.0 2.0 03/09/17 03/09/17 03/09/17 03/09/17 08:04 08:38 08:38 09:00 Temp 98.5 98.5 Pulse 79 88 88 Resp 22 26 20 B/P (MAP) 121/54 (76) 126/65 126/65 (85) Pulse Ox 99 95 96 O2 Delivery Nasal Cannula Nasal Cannula Nasal Cannula O2 Flow Rate 3.0 2.0 3.0 03/09/17 03/09/17 03/09/17 03/09/17 10:00 11:00 12:00 12:00 Pulse 81 79 118 Resp 20 18 31 B/P (MAP) 114/55 (74) 105/55 (72) 113/58 (76) Pulse Ox 96 97 97 O2 Delivery Nasal Cannula Nasal Cannula Nasal Cannula Nasal Cannula O2 Flow Rate 2.0 2.0 2.0 2.0 03/09/17 03/09/17 03/09/17 03/09/17 12:51 13:00 13:52 14:00 Temp 98.6 98.6 Pulse 86 100 Resp 23 33 24 33 B/P (MAP) 108/56 (73) 139/62 (87) Pulse Ox 94 96 98 92 O2 Delivery Nasal Cannula Nasal Cannula Nasal Cannula Nasal Cannula O2 Flow Rate 2.0 2.0 2.0 2.0 03/09/17 03/09/17 03/09/17 03/09/17 15:00 15:08 15:25 15:40 Pulse 96 Resp 28 19 31 B/P (MAP) 123/67 (85) Pulse Ox 93 93 92 O2 Delivery Nasal Cannula Nasal Cannula Nasal Cannula Nasal Cannula O2 Flow Rate 2.0 2.0 2.0 2.0 Intake and Output 03/09/17 03/09/17 03/10/17 15:00 23:00 07:00 Intake Total 600 ml Output Total 446 ml Balance 154 ml [email or web address] ZAVALA MD Mar 09, 2017 17:18
[2017-03-10] VITALS (17 sets, daily range): BP systolic 95–136; BP diastolic 52–83
[2017-03-10] MEDS: ceFAZolin SODIUM IV Push 1 GM VIAL. IVP SCH (05:00)
[2017-03-10] MEDS: ONDANSETRON PF 4 MG/2 ML VIAL. IV PRN ×4 (05:24→21:10)
[2017-03-10] MEDS: oxyCODONE/APAP 5/325 1 TAB TABLET PO PRN ×3 (05:25→16:18)
[2017-03-10 07:06] LABS: BASO % 0 % (0-3); EOS % 1 % (0-3); HEMATOCRIT 23.7 % (39.0-53.0); HEMOGLOBIN 7.3 g/dL (13.0-17.5); LYMPH # 0.9 x10^3/uL (1.0-4.8); LYMPH % 7 % (24-48); MEAN CORPUSCULAR HEMOGLOBIN 24 pg (25-35); MEAN CORPUSCULAR HGB CONC 31 g/dL (31-37); MEAN CORPUSCULAR VOLUME 76 fL (79-100); MONO % 11 % (0-9); NEUT % 81 % (31-73); PLATELET COUNT 161 x10^3/uL (140-400); RED BLOOD COUNT 3.12 x10^6/uL (4.30-5.70); RED CELL DISTRIBUTION WIDTH 16.8 % (11.5-14.5); WHITE BLOOD COUNT 12.9 x10^3/uL (4.0-11.0)
[2017-03-10 07:09] LABS: CALCIUM 7.9 mg/dL (8.5-10.1); CREATININE 1.3 mg/dL (0.7-1.3); GFR 54.9; POTASSIUM 3.5 mmol/L (3.5-5.1)
--- NOTE | 2017-03-10 08:25 | RAD ---
Portable chest, 03/10/2017: History: Postop evaluation Comparison is made to yesterday's study. The apices were not completely included on this exam. A right jugular vascular sheath and a probable left chest tube remain in place. The heart size is unchanged. The pulmonary vascularity is normal. There are moderate persistent left basilar opacities obscuring the hemidiaphragm compatible with atelectasis/infiltrate and possible pleural fluid. There is moderate ongoing streaky right basilar atelectasis. The upper lung gilliam remain clear. There is no evidence of pneumothorax. IMPRESSION: 1. Persistent moderate bibasilar postoperative opacities. 2. No new abnormality is detected.
[2017-03-10] MEDS: IV RINGERS,LACTATED 1000ML 1,000 ML IV SCH ×2 (09:12→12:47)
[2017-03-10] MEDS: POTASSIUM CHLORIDE 20MEQ 50 ML IV SCH ×3 (09:12→12:23)
[2017-03-10] MEDS: AMIODARONE HCL 200 MG TABLET. PO SCH ×2 (09:12→21:09)
[2017-03-10] MEDS: SENNOSIDES/DOCUSATE 8.6/50MG TABLET. PO SCH ×2 (09:13→21:07)
[2017-03-10] MEDS: FAMOTIDINE 20 MG TABLET. PO SCH ×2 (09:13→21:07)
[2017-03-10] MEDS: ASPIRIN ENTERIC COATED 325 MG TABLET.DR. PO SCH (09:13)
--- NOTE | 2017-03-10 09:16 | PDOC ---
Progress Note Subjective Subjective Doing very well. Normotensive and in sinus rhythm. On 2 lit NC. Pleural tube output minimal. Labs noted. Pain well controlled. responded well with lasix, creatinine stable at 1.3. Chest x-ray:atelectasis/low lung volumes. Hb: 7.3 noted, asymptomatic, will watch for now ROS ROS No nausea No vomiting No pain No rash Vital Sign Vital Signs Vital Signs Date Time Temp Pulse Resp B/P (MAP) Pulse Ox O2 Delivery O2 Flow Rate FiO2 03/10/17 07:00 91 25 102/53 (69) 92 Nasal Cannula 2.0 03/10/17 04:00 98.7 98.7 Physical Exam PHYSICAL EXAM GENERAL: NAD, Alert HEENT: PERRL, OC/OP NECK: Supple, no JVD, no LN LUNGS: Clear HEART: S1S2, no gallop, no murmur ABD: Soft, NT, no organomegaly, no rebound EXT: No edema, no cyanosis HEAD OF PHYSICS: Alert, oriented x 3, no focal neurologic deficit SKIN: No rash IV: ok Labs Lab Laboratory Tests Test 03/09/17 10:28 03/09/17 12:45 03/09/17 13:53 03/09/17 15:10 Glucose (Fingerstick) 134 mg/dL (70-99) 122 mg/dL (70-99) 112 mg/dL (70-99) 137 mg/dL (70-99) Test 03/09/17 16:34 03/09/17 18:14 03/09/17 19:21 03/09/17 20:17 Glucose (Fingerstick) 134 mg/dL (70-99) 128 mg/dL (70-99) 119 mg/dL (70-99) 119 mg/dL (70-99) Test 03/09/17 21:25 03/10/17 00:30 03/10/17 04:07 03/10/17 06:05 Glucose (Fingerstick) 117 mg/dL (70-99) 103 mg/dL (70-99) 103 mg/dL (70-99) White Blood Count 12.9 x10^3/uL (4.0-11.0) Red Blood Count 3.12 x10^6/uL (4.30-5.70) Hemoglobin 7.3 g/dL (13.0-17.5) Hematocrit 23.7 % (39.0-53.0) Mean Corpuscular Volume 76 fL (79-100) Mean Corpuscular Hemoglobin 24 pg (25-35) Mean Corpuscular Hemoglobin Concent 31 g/dL (31-37) Red Cell Distribution Width 16.8 % (11.5-14.5) Platelet Count 161 x10^3/uL (140-400) Neutrophils (%) (Auto) 81 % (31-73) Lymphocytes (%) (Auto) 7 % (24-48) Monocytes (%) (Auto) 11 % (0-9) Eosinophils (%) (Auto) 1 % (0-3) Basophils (%) (Auto) 0 % (0-3) Neutrophils # (Auto) 10.5 x10^3uL (1.8-7.7) Lymphocytes # (Auto) 0.9 x10^3/uL (1.0-4.8) Monocytes # (Auto) 1.4 x10^3/uL (0.0-1.1) Eosinophils # (Auto) 0.1 x10^3/uL (0.0-0.7) Basophils # (Auto) 0.0 x10^3/uL (0.0-0.2) Sodium Level 133 mmol/L (136-145) Potassium Level 3.5 mmol/L (3.5-5.1) Chloride Level 100 mmol/L (98-107) Carbon Dioxide Level 27 mmol/L (21-32) Anion Gap 6 (6-14) Blood Urea Nitrogen 21 mg/dL (8-26) Creatinine 1.3 mg/dL (0.7-1.3) Estimated GFR (Cockcroft-Gault) 54.9 Glucose Level 117 mg/dL (70-99) Calcium Level 7.9 mg/dL (8.5-10.1) Magnesium Level 1.9 mg/dL (1.8-2.4) Objective Assessment POD#2, 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 Normotensive and in sinus rhythm. On 2 lit NC. Pleural tube output minimal. Labs noted. Pain well controlled. responded well with lasix, creatinine stable at 1.3. Chest x-ray:atelectasis/low lung volumes. Hb: 7.3 noted, asymptomatic, will watch for now Plan Plan of Care D/c pleural tube D/c cordis D/c pacing wires Oral amiodarone for afib prophylaxis ASA, beta lance and statin Ambulation and pulmonary toilet Will follow Hb. 7.3 today, asymptomatic, will watch for now [facility] will stay in until patient has seen a urologist, owing to his urethral stricture Transfer to stepdown ARNALDO GALINDO MD Mar 10, 2017 09:16
[2017-03-10] MEDS ORDERED: MAGNESIUM SULFATE 1GM 100 ML IV ONE (10:00)
[2017-03-10] MEDS: METOPROLOL TART IMMED RELEASE 25 MG TABLET. PO SCH ×2 (11:19→21:09)
--- NOTE | 2017-03-10 13:52 | PDOC ---
PROGRESS NOTES Subjective Subjective Patient doing well today. Sitting up in chair in no acute distress. Discussed importance of leaving urinary catheter in place, patient understanding. No additional complaints at this time. Objective Objective Vital Signs Date Time Temp Pulse Resp B/P (MAP) Pulse Ox O2 Delivery O2 Flow Rate FiO2 03/10/17 11:19 113 123/83 03/10/17 09:13 26 93 Nasal Cannula 2.0 03/10/17 04:00 98.7 98.7 Intake and Output 03/10/17 07:00 Intake Total 2997.20 ml Output Total 2631 ml Balance 366.20 ml Intake Oral 1600 ml IV Total 1397.20 ml Output Urine Total 2253 ml Chest Tube Drainage Total 378 ml Physical Exam Extremities: No edema General: Alert, Cooperative, No acute distress Lungs: Normal air movement Neck: No JVD COMMENT No changes in cardiac exam Assessment Assessment POD#2 s/p CABG x 3 (SHELL to LAD, SVG to OM1, SVg to OM2) Patient progressing very well s/p CABG Plan Plan of Care Plan: Continue post-operative care Patient transfer to stepdown from ICU D/c pacing wires Oral amiodarone for afib prophylaxis ASA, beta lance and statin Hammonds to remain in place until patient has seen a urologist due to significant urethral stricture, Discussed with family who plans to schedule urologist appointment with Dr. Crump Comment Review of Relevant I have reviewed the following items mckenzie (where applicable) has been applied. Labs Laboratory Tests Test 03/08/17 14:09 03/08/17 15:00 03/08/17 15:08 03/08/17 15:45 Bedside Hemoglobin (Calculated) 8.2 g/dL (14-18) Bedside Hematocrit 24 % (37-52) Bedside Arterial pH 7.42 (7.35-7.45) Bedside Arterial pCO2 30 mmHg (35-45) Bedside Arterial pO2 120 mmHg (75-100) Bedside Arterial HCO3 20 mmol/L (21-28) Bedside Arterial Total CO2 21 mmol/L (21-32) Arterial Bld O2 Saturation (Measur) 99 % (95-99) Bedside Arterial Blood Base Excess -5 mmol/L (0-3) Bedside FiO2 100.0 Bedside Sodium 142 mmol/L (135-145) Bedside Potassium 3.4 mmol/L (3.5-5.0) Glucose Level 122 mg/dL (70-99) 116 mg/dL (70-99) Bedside Ionized Calcium (Moisés) 1.40 mmol/L (1.13-1.32) O2 Saturation 99 % (92-99) Arterial Blood pH 7.41 (7.35-7.45) Arterial Blood pCO2 at Patient Temp 32 mmHg (35-46) Arterial Blood pO2 at Patient Temp 195 mmHg (65-108) Arterial Blood HCO3 20 mmol/L (21-28) Arterial Blood Base Excess -4 mmol/L (-3-3) Oxyhemoglobin 97.8 % Methemoglobin 0.5 % (0.0-1.9) Carbon Monoxide, Quantitative 0.4 % (0.0-1.9) FiO2 100 Glucose (Fingerstick) 111 mg/dL (70-99) White Blood Count 14.8 x10^3/uL (4.0-11.0) Red Blood Count 3.38 x10^6/uL (4.30-5.70) Hemoglobin 8.1 g/dL (13.0-17.5) Hematocrit 25.5 % (39.0-53.0) Mean Corpuscular Volume 75 fL (79-100) Mean Corpuscular Hemoglobin 24 pg (25-35) Mean Corpuscular Hemoglobin Concent 32 g/dL (31-37) Red Cell Distribution Width 17.2 % (11.5-14.5) Platelet Count 172 x10^3/uL (140-400) Prothrombin Time 17.2 SEC (11.7-14.0) Prothromb Time International Ratio 1.5 (0.8-1.1) Activated Partial Thromboplast Time 46 SEC (24-38) Sodium Level 143 mmol/L (136-145) Potassium Level 3.4 mmol/L (3.5-5.1) Chloride Level 108 mmol/L (98-107) Carbon Dioxide Level 24 mmol/L (21-32) Anion Gap 11 (6-14) Blood Urea Nitrogen 19 mg/dL (8-26) Creatinine 1.4 mg/dL (0.7-1.3) Estimated GFR (Cockcroft-Gault) 50.4 Calcium Level 9.4 mg/dL (8.5-10.1) Ionized Calcium 1.33 mmol/L (1.13-1.32) Magnesium Level 2.2 mg/dL (1.8-2.4) Test 03/08/17 18:07 03/08/17 18:27 03/08/17 19:46 03/08/17 20:47 Glucose (Fingerstick) 157 mg/dL (70-99) 165 mg/dL (70-99) 158 mg/dL (70-99) O2 Saturation 98 % (92-99) Arterial Blood pH 7.38 (7.35-7.45) Arterial Blood pCO2 at Patient Temp 37 mmHg (35-46) Arterial Blood pO2 at Patient Temp 127 mmHg (65-108) Arterial Blood HCO3 21 mmol/L (21-28) Arterial Blood Base Excess -3 mmol/L (-3-3) FiO2 40 Test 03/08/17 22:01 03/08/17 22:05 03/08/17 23:05 03/09/17 00:05 Glucose (Fingerstick) 148 mg/dL (70-99) 157 mg/dL (70-99) 165 mg/dL (70-99) Hemoglobin 8.7 g/dL (13.0-17.5) Hematocrit 27.3 % (39.0-53.0) Mean Corpuscular Hemoglobin Concent 32 g/dL (31-37) Potassium Level 4.4 mmol/L (3.5-5.1) Test 03/09/17 01:09 03/09/17 02:12 03/09/17 03:14 03/09/17 04:17 Glucose (Fingerstick) 145 mg/dL (70-99) 152 mg/dL (70-99) 146 mg/dL (70-99) 139 mg/dL (70-99) Test 03/09/17 04:19 03/09/17 08:33 03/09/17 10:28 03/09/17 12:45 White Blood Count 12.0 x10^3/uL (4.0-11.0) Red Blood Count 3.50 x10^6/uL (4.30-5.70) Hemoglobin 8.5 g/dL (13.0-17.5) Hematocrit 26.5 % (39.0-53.0) Mean Corpuscular Volume 76 fL (79-100) Mean Corpuscular Hemoglobin 24 pg (25-35) Mean Corpuscular Hemoglobin Concent 32 g/dL (31-37) Red Cell Distribution Width 17.1 % (11.5-14.5) Platelet Count 170 x10^3/uL (140-400) Sodium Level 140 mmol/L (136-145) Potassium Level 4.1 mmol/L (3.5-5.1) Chloride Level 108 mmol/L (98-107) Carbon Dioxide Level 26 mmol/L (21-32) Anion Gap 6 (6-14) Blood Urea Nitrogen 19 mg/dL (8-26) Creatinine 1.3 mg/dL (0.7-1.3) Estimated GFR (Cockcroft-Gault) 54.9 Glucose Level 148 mg/dL (70-99) Calcium Level 8.5 mg/dL (8.5-10.1) Magnesium Level 2.2 mg/dL (1.8-2.4) Glucose (Fingerstick) 160 mg/dL (70-99) 134 mg/dL (70-99) 122 mg/dL (70-99) Test 03/09/17 13:53 03/09/17 15:10 03/09/17 16:34 03/09/17 18:14 Glucose (Fingerstick) 112 mg/dL (70-99) 137 mg/dL (70-99) 134 mg/dL (70-99) 128 mg/dL (70-99) Test 03/09/17 19:21 03/09/17 20:17 03/09/17 21:25 03/10/17 00:30 Glucose (Fingerstick) 119 mg/dL (70-99) 119 mg/dL (70-99) 117 mg/dL (70-99) 103 mg/dL (70-99) Test 03/10/17 04:07 03/10/17 06:05 Glucose (Fingerstick) 103 mg/dL (70-99) White Blood Count 12.9 x10^3/uL (4.0-11.0) Red Blood Count 3.12 x10^6/uL (4.30-5.70) Hemoglobin 7.3 g/dL (13.0-17.5) Hematocrit 23.7 % (39.0-53.0) Mean Corpuscular Volume 76 fL (79-100) Mean Corpuscular Hemoglobin 24 pg (25-35) Mean Corpuscular Hemoglobin Concent 31 g/dL (31-37) Red Cell Distribution Width 16.8 % (11.5-14.5) Platelet Count 161 x10^3/uL (140-400) Neutrophils (%) (Auto) 81 % (31-73) Lymphocytes (%) (Auto) 7 % (24-48) Monocytes (%) (Auto) 11 % (0-9) Eosinophils (%) (Auto) 1 % (0-3) Basophils (%) (Auto) 0 % (0-3) Neutrophils # (Auto) 10.5 x10^3uL (1.8-7.7) Lymphocytes # (Auto) 0.9 x10^3/uL (1.0-4.8) Monocytes # (Auto) 1.4 x10^3/uL (0.0-1.1) Eosinophils # (Auto) 0.1 x10^3/uL (0.0-0.7) Basophils # (Auto) 0.0 x10^3/uL (0.0-0.2) Sodium Level 133 mmol/L (136-145) Potassium Level 3.5 mmol/L (3.5-5.1) Chloride Level 100 mmol/L (98-107) Carbon Dioxide Level 27 mmol/L (21-32) Anion Gap 6 (6-14) Blood Urea Nitrogen 21 mg/dL (8-26) Creatinine 1.3 mg/dL (0.7-1.3) Estimated GFR (Cockcroft-Gault) 54.9 Glucose Level 117 mg/dL (70-99) Calcium Level 7.9 mg/dL (8.5-10.1) Magnesium Level 1.9 mg/dL (1.8-2.4) Laboratory Tests Test 03/09/17 13:53 03/09/17 15:10 03/09/17 16:34 03/09/17 18:14 Glucose (Fingerstick) 112 mg/dL (70-99) 137 mg/dL (70-99) 134 mg/dL (70-99) 128 mg/dL (70-99) Test 03/09/17 19:21 03/09/17 20:17 03/09/17 21:25 03/10/17 00:30 Glucose (Fingerstick) 119 mg/dL (70-99) 119 mg/dL (70-99) 117 mg/dL (70-99) 103 mg/dL (70-99) Test 03/10/17 04:07 03/10/17 06:05 Glucose (Fingerstick) 103 mg/dL (70-99) White Blood Count 12.9 x10^3/uL (4.0-11.0) Red Blood Count 3.12 x10^6/uL (4.30-5.70) Hemoglobin 7.3 g/dL (13.0-17.5) Hematocrit 23.7 % (39.0-53.0) Mean Corpuscular Volume 76 fL (79-100) Mean Corpuscular Hemoglobin 24 pg (25-35) Mean Corpuscular Hemoglobin Concent 31 g/dL (31-37) Red Cell Distribution Width 16.8 % (11.5-14.5) Platelet Count 161 x10^3/uL (140-400) Neutrophils (%) (Auto) 81 % (31-73) Lymphocytes (%) (Auto) 7 % (24-48) Monocytes (%) (Auto) 11 % (0-9) Eosinophils (%) (Auto) 1 % (0-3) Basophils (%) (Auto) 0 % (0-3) Neutrophils # (Auto) 10.5 x10^3uL (1.8-7.7) Lymphocytes # (Auto) 0.9 x10^3/uL (1.0-4.8) Monocytes # (Auto) 1.4 x10^3/uL (0.0-1.1) Eosinophils # (Auto) 0.1 x10^3/uL (0.0-0.7) Basophils # (Auto) 0.0 x10^3/uL (0.0-0.2) Sodium Level 133 mmol/L (136-145) Potassium Level 3.5 mmol/L (3.5-5.1) Chloride Level 100 mmol/L (98-107) Carbon Dioxide Level 27 mmol/L (21-32) Anion Gap 6 (6-14) Blood Urea Nitrogen 21 mg/dL (8-26) Creatinine 1.3 mg/dL (0.7-1.3) Estimated GFR (Cockcroft-Gault) 54.9 Glucose Level 117 mg/dL (70-99) Calcium Level 7.9 mg/dL (8.5-10.1) Magnesium Level 1.9 mg/dL (1.8-2.4) Medications Current Medications Ondansetron HCl (Zofran) 4 mg PRN Q6HRS PRN IV NAUSEA/VOMITING Last administered on 03/08/17 19:17; Start 03/08/17 at 07:00; Stop 03/09/17 at 06 :59; Status DC Fentanyl Citrate (Fentanyl 2ml Vial) 25 mcg PRN Q5MIN PRN IV MILD PAIN; Start 03/08/17 at 07:00; Stop 03/09/17 at 06:59; Status DC Fentanyl Citrate (Fentanyl 2ml Vial) 50 mcg PRN Q5MIN PRN IV MODERATE PAIN; Start 03/08/17 at 07:00; Stop 03/09/17 at 06:59; Status DC Morphine Sulfate 1 mg PRN Q10MIN PRN IV SEVERE PAIN Last administered on 17:22; Start 03/08/17 at 07:00; Stop 03/09/17 at 06:59; Status DC Ringer's Solution 1,000 ml @ 0 mls/hr Q0M IV Last administered on 03/08/17 06:18; Start 03/08/17 at 07:00; Stop 03/08/17 at 18:59; Status DC Lidocaine HCl (Xylocaine-Mpf 1% Vial) 2 ml PRN 1X PRN ID PRIOR TO IV START; Start 03/08/17 at 07:00; Stop 03/09/17 at 06:59; Status DC Hydromorphone HCl (Dilaudid) 0.5 mg PRN Q10MIN PRN IV SEV PAIN, Second choice; Start 03/08/17 at 07:00; Stop 03/09/17 at 06:59; Status DC Prochlorperazine Edisylate (Compazine) 5 mg PACU PRN PRN IV NAUSEA, MRX1; Start 03/08/17 at 07:00; Stop 03/09/17 at 06:59; Status DC Cefazolin Sodium/ Dextrose 50 ml @ As Directed STK-MED ONCE IV ; Start at 06:22; Stop 03/08/17 at 06:23; Status DC Lidocaine HCl (Lidocaine Pf 2% Vial) 5 ml STK-MED ONCE .ROUTE ; Start 03/08/17 at 06:48; Stop 03/08/17 at 06:49; Status DC Phenylephrine HCl (Alvarez-Synephrine Inj) 10 mg STK-MED ONCE .ROUTE ; Start at 06:48; Stop 03/08/17 at 06:49; Status DC Etomidate (Amidate) 20 mg STK-MED ONCE IV ; Start 03/08/17 at 06:48; Stop at 06:49; Status DC Nitroglycerin/ Dextrose 250 ml @ As Directed STK-MED ONCE IV ; Start 03/08/17 at 06:48; Stop 03/08/17 at 06:49; Status DC Rocuronium [place] (Zemuron) 100 mg STK-MED ONCE .ROUTE ; Start 03/08/17 at 06: 49; Stop 03/08/17 at 06:50; Status DC Sufentanil Citrate (Sufenta) 100 mcg STK-MED ONCE .ROUTE ; Start 03/08/17 at 06 :49; Stop 03/08/17 at 06:50; Status DC Midazolam HCl (Versed) 2 mg STK-MED ONCE .ROUTE ; Start 03/08/17 at 06:49; Stop 03/08/17 at 06:50; Status DC Heparin Sodium (Porcine) 30,000 unit STK-MED ONCE .ROUTE ; Start 03/08/17 at 06 :50; Stop 03/08/17 at 06:51; Status DC Aminocaproic Acid (Amicar) 5,000 mg STK-MED ONCE IV ; Start 03/08/17 at 06:50; Stop 03/08/17 at 06:51; Status DC Sufentanil Citrate (Sufenta) 250 mcg STK-MED ONCE .ROUTE ; Start 03/08/17 at 07 :04; Stop 03/08/17 at 07:05; Status DC Vancomycin HCl (Vanco) 10 gm STK-MED ONCE .ROUTE Last administered on 08:59; Start 03/08/17 at 07:38; Stop 03/08/17 at 07:39; Status DC Cellulose 1 each STK-MED ONCE .ROUTE Last administered on 03/08/17 08:59; Start 03/08/17 at 07:38; Stop 03/08/17 at 07:39; Status DC Papaverine HCl 60 mg STK-MED ONCE .ROUTE Last administered on 03/08/17 08:59 ; Start 03/08/17 at 07:38; Stop 03/08/17 at 07:39; Status DC Aspirin (Aspirin) 300 mg STK-MED ONCE .ROUTE Last administered on 03/08/17 14 :19; Start 03/08/17 at 07:38; Stop 03/08/17 at 07:39; Status DC Sodium Chloride (Sodium Chloride) 50 ml STK-MED ONCE IJ Last administered on 08:59; Start 03/08/17 at 07:39; Stop 03/08/17 at 07:40; Status DC Cefazolin Sodium/ Dextrose 50 ml @ 100 mls/hr 1X PREOP IV ; Start 03/08/17 at 07:45; Stop 03/09/17 at 18:00; Status DC Potassium Chloride 70 meq/ Sodium Bicarbonate 12.5 meq/Lidocaine HCl 24 ml/ Parenteral Electrolytes 571.5 ml @ 571.5 mls/ hr 1X PERIOP ONCE IRR Last administered on 03/08/17 10:53; Start 03/08/17 at 06:00; Stop 03/08/17 at 07 :45; Status DC Potassium Chloride 15 meq/ Sodium Bicarbonate 12.5 meq/Parenteral Electrolytes 520 ml @ 520 mls/hr 1X PERIOP ONCE IRR Last administered on 03/08/17 10:53 ; Start 03/08/17 at 06:00; Stop 03/08/17 at 07:45; Status DC Cefazolin Sodium 1 gm/Sodium Chloride 500 ml @ 500 mls/hr 1X PERIOP ONCE IRR Last administered on 03/08/17 08:58; Start 03/08/17 at 06:00; Stop 03/08/17 at 07:45; Status DC Heparin Sodium (Porcine) 09057 unit/Ringer's Solution 1,020 ml @ 1,020 mls/hr 1X PERIOP ONCE IRR Last administered on 03/08/17 08:58; Start 03/08/17 at 06:00; Stop 03/08/17 at 07:45; Status DC Midazolam HCl (Versed) 2 mg STK-MED ONCE .ROUTE ; Start 03/08/17 at 08:14; Stop 03/08/17 at 08:15; Status DC Insulin Human Regular 150 unit/ Sodium Chloride 151.5 ml @ 9.59 mls/hr CONT PRN IV SEE I/O RECORD Last administered on 03/08/17t 18:15; Start 03/08/17 at 09:30 Rocuronium [place] (Zemuron) 100 mg STK-MED ONCE .ROUTE ; Start 03/08/17 at 09: 32; Stop 03/08/17 at 09:33; Status DC Heparin Sodium (Porcine) (Heparin Sodium) 10,000 unit STK-MED ONCE .ROUTE ; Start 03/08/17 at 09:32; Stop 03/08/17 at 09:33; Status DC Rocuronium [place] (Zemuron) 100 mg STK-MED ONCE .ROUTE ; Start 03/08/17 at 11: 34; Stop 03/08/17 at 11:35; Status DC Midazolam HCl (Versed) 2 mg STK-MED ONCE .ROUTE ; Start 03/08/17 at 12:09; Stop 03/08/17 at 12:10; Status DC Protamine Sulfate 250 mg STK-MED ONCE IV ; Start 03/08/17 at 12:23; Stop 03/08 at 12:24; Status DC Propofol 100 ml @ As Directed STK-MED ONCE IV ; Start 03/08/17 at 12:24; Stop 03/08/17 at 12:25; Status DC Protamine Sulfate 250 mg STK-MED ONCE IV ; Start 03/08/17 at 12:26; Stop 03/08 at 12:27; Status DC Cefazolin Sodium/ Dextrose (Ancef 2gm Premix) 2 gm STK-MED ONCE IV ; Start at 06:30; Stop 03/08/17 at 12:28; Status DC Calcium Chloride 1,000 mg STK-MED ONCE IV ; Start 03/08/17 at 12:51; Stop at 12:52; Status DC Calcium Chloride 1,000 mg STK-MED ONCE IV ; Start 03/08/17 at 12:54; Stop at 12:55; Status DC Calcium Chloride 1,000 mg STK-MED ONCE IV ; Start 03/08/17 at 12:54; Stop at 12:55; Status DC Heparin Sodium (Porcine) (Heparin Sodium) 10,000 unit STK-MED ONCE .ROUTE ; Start 03/08/17 at 12:54; Stop 03/08/17 at 12:55; Status DC Heparin Sodium (Porcine) (Heparin Sodium) 10,000 unit STK-MED ONCE .ROUTE ; Start 03/08/17 at 12:54; Stop 03/08/17 at 12:55; Status DC Heparin Sodium (Porcine) 30,000 unit STK-MED ONCE .ROUTE ; Start 03/08/17 at 12 :54; Stop 03/08/17 at 12:55; Status DC Lidocaine HCl (Lidocaine Pf 2% Vial) 5 ml STK-MED ONCE .ROUTE ; Start 03/08/17 at 12:54; Stop 03/08/17 at 12:55; Status DC Magnesium Sulfate 5 gm STK-MED ONCE .ROUTE ; Start 03/08/17 at 12:55; Stop at 12:56; Status DC Mannitol (Mannitol) 12.5 g STK-MED ONCE .ROUTE ; Start 03/08/17 at 12:55; Stop 03/08/17 at 12:56; Status DC Albumin Human 100 ml @ As Directed STK-MED ONCE IV ; Start 03/08/17 at 12:55; Stop 03/08/17 at 12:56; Status DC Sodium Chloride (Normal Saline Flush) 3 ml PRN Q12HR PRN IV AFTER MEDS AND BLOOD DRAWS; Start 03/08/17 at 13:00 Ringer's Solution 1,000 ml @ 30 mls/hr Q24H IV Last administered on t 09:12; Start 03/08/17 at 12:47 Albumin Human 250 ml @ 60 mls/hr PRN Q4HRS PRN IV SEE I/O RECORD; Start 03/08 at 13:00 Insulin Human Regular 150 unit/ Sodium Chloride 151.5 ml @ 0 mls/hr CONT PRN PRN IV SEE I/O RECORD; Start 03/08/17 at 13:00; Stop 03/09/17 at 08:28; Status DC Dextrose (Dextrose 50%-Water Syringe) 25 gm PRN Q15MIN PRN IV LOW BLOOD SUGAR; Start 03/08/17 at 13:00 Amiodarone HCl (Cordarone) 400 mg BID PO Last administered on 03/10/17 09:12 ; Start 03/09/17 at 09:00 Info 1 ea CONT PRN PRN MC SEE COMMENTS; Start 03/08/17 at 13:00 Info 1 ea CONT PRN PRN MC SEE COMMENTS; Start 03/08/17 at 13:00 Magnesium Sulfate/ Dextrose 100 ml @ 100 mls/hr PRN DAILY PRN IV FOR MAG < 2.2 ; Start 03/08/17 at 13:00 Famotidine (Pepcid Vial) 20 mg BID IVP Last administered on 03/08/17 21:03; Start 03/08/17 at 21:00; Stop 03/09/17 at 07:10; Status DC Ondansetron HCl (Zofran) 4 mg PRN Q4HRS PRN IV NAUSEA/VOMITING Last administered on 03/10/17 09:14; Start 03/08/17 at 13:00 Prochlorperazine Edisylate (Compazine) 10 mg PRN Q6HRS PRN IV NAUSEA/VOMITING Last administered on 03/08/17 21:04; Start 03/08/17 at 13:00 Morphine Sulfate 2 mg PRN Q1HR PRN IV PAIN Last administered on 03/09/17 15: 08; Start 03/08/17 at 13:00 Acetaminophen (Tylenol) 650 mg PRN Q4HRS PRN PO MILD PAIN / TEMP; Start at 13:00 Acetaminophen (Acetaminophen Supp) 650 mg PRN Q4HRS PRN NE MILD PAIN / TEMP; Start 03/08/17 at 13:00 Meperidine HCl (Demerol) 12.5 mg PRN Q15MIN PRN IV SHIVERING; Start 03/08/17 at 13:00; Stop 03/09/17 at 12:47; Status DC Senna/Docusate Sodium (Senna Plus) 1 tab BID PO Last administered on 09:13; Start 03/08/17 at 21:00 Bisacodyl (Dulcolax Supp) 10 mg PRN DAILY PRN NE NO BOWEL MOVEMENT; Start at 13:00 Aspirin (Ecotrin) 325 mg DAILYWBKFT PO Last administered on 03/10/17 09:13; Start 03/09/17 at 08:00 Metoprolol Tartrate (Lopressor) 25 mg BID PO Last administered on 03/10/17 11 :19; Start 03/09/17 at 09:00 Nicardipine HCl 50 mg/Sodium Chloride 270 ml @ 0 mls/hr CONT PRN PRN IV PER PROTOCOL; Start 03/08/17 at 13:00; Stop 03/08/17 at 14:46; Status DC Oxycodone/ Acetaminophen (Percocet 5/325) 1 tab PRN Q4HRS PRN PO MILD PAIN; Start 03/08/17 at 13:00 Oxycodone/ Acetaminophen (Percocet 5/325) 2 tab PRN Q4HRS PRN PO MODERATE PAIN , SEVERE PAIN Last administered on 03/10/17 09:13; Start 03/08/17 at 13:00 Cefazolin Sodium 1 gm/Dextrose 50 ml @ 100 mls/hr Q8H IV ; Start 03/08/17 at 13:00; Stop 03/08/17 at 14:57; Status DC Sodium Bicarbonate 50 meq STK-MED ONCE .ROUTE ; Start 03/08/17 at 12:56; Stop 03/08/17 at 12:57; Status DC Albumin Human 500 ml @ As Directed STK-MED ONCE IV ; Start 03/08/17 at 13:08; Stop 03/08/17 at 13:09; Status DC Rocuronium [place] (Zemuron) 50 mg STK-MED ONCE .ROUTE ; Start 03/08/17 at 13: 27; Stop 03/08/17 at 13:28; Status DC Phenylephrine HCl (Alvarez-Synephrine Inj) 10 mg STK-MED ONCE .ROUTE ; Start at 14:15; Stop 03/08/17 at 14:16; Status DC Phenylephrine HCl (Alvarez-Synephrine Inj) 10 mg STK-MED ONCE .ROUTE ; Start at 14:15; Stop 03/08/17 at 14:16; Status DC Clevidipine 100 ml @ 0 mls/hr CONT PRN IV PER PROTOCOL Last administered on 15:02; Start 03/08/17 at 14:30 Amiodarone HCl 150 mg/Dextrose 103 ml @ 618 mls/hr 1X ONCE IV Last administered on 03/08/17 15:30; Start 03/08/17 at 14:30; Stop 03/08/17 at 14 :49; Status DC Amiodarone HCl 900 mg/Dextrose 518 ml @ 0 mls/hr CONT PRN IV SEE I/O RECORD Last administered on 03/08/17 15:29; Start 03/08/17 at 14:30; Stop 03/08/17 at 15:30; Status DC Clevidipine 100 ml @ 0 mls/hr CONT PRN IV PER PROTOCOL; Start 03/08/17 at 14: 30; Status UNV Cefazolin Sodium (Ancef) 1 gm Q8H IVP Last administered on 03/10/17 05:00; Start 03/08/17 at 16:30; Stop 03/10/17 at 05:01; Status DC Sodium Bicarbonate 50 meq 1X ONCE IV Last administered on 03/08/17 16:14; Start 03/08/17 at 16:00; Stop 03/08/17 at 16:03; Status DC Potassium Chloride 50 ml @ 50 mls/hr Q1H IV Last administered on 03/08/17 19: 49; Start 03/08/17 at 16:30; Stop 03/08/17 at 19:29; Status DC Potassium Chloride 50 ml @ 50 mls/hr 1X ONCE IV ; Start 03/08/17 at 16:30; Stop 03/08/17 at 17:29; Status UNV Potassium Chloride 50 ml @ 50 mls/hr 1X ONCE IV Last administered on 05:28; Start 03/09/17 at 05:30; Stop 03/09/17 at 06:29; Status DC Famotidine (Pepcid) 20 mg BID PO Last administered on 03/10/17 09:13; Start 03/09/17 at 09:00 Furosemide (Lasix) 40 mg 1X ONCE IVP Last administered on 03/09/17 13:24; Start 03/09/17 at 11:00; Stop 03/09/17 at 11:01; Status DC Albumin Human 250 ml @ 250 mls/hr Q1HR IV Last administered on 03/09/17 12: 43; Start 03/09/17 at 11:00; Stop 03/09/17 at 12:59; Status DC Potassium Chloride 50 ml @ 50 mls/hr Q1H IV Last administered on 03/10/17t 12: 23; Start 03/10/17 at 08:00; Stop 03/10/17 at 10:59; Status DC Magnesium Sulfate/ Dextrose 100 ml @ 100 mls/hr 1X ONCE IV ; Start 03/10/17 at 10:00; Stop 03/10/17 at 10:59; Status DC Active Scripts Active Reported Aspirin Ec (Aspirin) 325 Mg Tablet.dr 1 Tab PO DAILY Lisinopril 20 Mg Tablet 1 Tab PO DAILY Metoprolol Tartrate 25 Mg Tablet 25 Mg PO BID Vitals/I & O Vital Sign - Last 24 Hours 03/09/17 03/09/17 03/09/17 03/09/17 13:52 14:00 15:00 15:08 Pulse 100 96 Resp 33 28 19 B/P (MAP) 139/62 (87) 123/67 (85) Pulse Ox 98 92 93 93 O2 Delivery Nasal Cannula Nasal Cannula Nasal Cannula O2 Flow Rate 2.0 2.0 2.0 2.0 03/09/17 03/09/17 03/09/17 03/09/17 15:25 15:40 16:00 17:00 Pulse 78 81 Resp 31 20 20 B/P (MAP) 102/55 (71) 101/58 (72) Pulse Ox 92 94 96 O2 Delivery Nasal Cannula Nasal Cannula Nasal Cannula Nasal Cannula O2 Flow Rate 2.0 2.0 2.0 2.0 03/09/17 03/09/17 03/09/17 03/09/17 18:00 19:00 20:00 20:00 Temp 98.6 98.6 Pulse 85 84 80 Resp 26 24 19 B/P (MAP) 113/59 (77) 116/59 (78) 117/57 (77) Pulse Ox 93 95 97 O2 Delivery Nasal Cannula Nasal Cannula Nasal Cannula Nasal Cannula O2 Flow Rate 2.0 2.0 2.0 2.0 03/09/17 03/09/17 03/09/17 03/09/17 21:00 21:22 21:22 22:00 Pulse 82 84 84 84 Resp 20 22 B/P (MAP) 115/54 (74) 115/54 115/54 119/57 (77) Pulse Ox 97 97 O2 Delivery Nasal Cannula Nasal Cannula O2 Flow Rate 2.0 2.0 03/09/17 03/09/17 03/09/17 03/10/17 23:00 23:59 23:59 01:00 Temp 98.3 98.3 Pulse 90 82 88 Resp 11 20 24 B/P (MAP) 120/66 (84) 114/65 (81) 121/68 (85) Pulse Ox 95 97 93 O2 Delivery Nasal Cannula Nasal Cannula Nasal Cannula Nasal Cannula O2 Flow Rate 2.0 2.0 2.0 2.0 03/10/17 03/10/17 03/10/17 03/10/17 02:00 03:00 04:00 04:00 Temp 98.7 98.7 Pulse 84 90 94 Resp 20 27 22 B/P (MAP) 130/58 (82) 134/63 (86) 120/67 (84) Pulse Ox 96 92 94 O2 Delivery Nasal Cannula Nasal Cannula Nasal Cannula Nasal Cannula O2 Flow Rate 2.0 2.0 2.0 2.0 03/10/17 03/10/17 03/10/17 03/10/17 05:00 05:25 06:00 06:25 Pulse 88 92 Resp 24 28 27 24 B/P (MAP) 127/68 (87) 136/72 (93) Pulse Ox 93 92 91 O2 Delivery Nasal Cannula Nasal Cannula Nasal Cannula Nasal Cannula O2 Flow Rate 2.0 2.0 2.0 03/10/17 03/10/17 03/10/17 03/10/17 07:00 08:00 09:12 09:13 Pulse 91 95 Resp 25 26 B/P (MAP) 102/53 (69) 97/52 Pulse Ox 92 93 O2 Delivery Nasal Cannula Nasal Cannula Nasal Cannula O2 Flow Rate 2.0 2.0 2.0 03/10/17 11:19 Pulse 113 B/P (MAP) 123/83 Intake and Output 03/09/17 03/09/17 03/10/17 15:00 23:00 07:00 Intake Total 1100 ml 776.20 ml 1121 ml Output Total 746 ml 1425 ml 460 ml Balance 354 ml -648.80 ml 661 ml KYREE ZAVALA MD Mar 10, 2017 13:52
--- NOTE | 2017-03-10 17:15 | PATHOLOGY ---
PATHOLOGY REPORT * * * * * * * * FINAL DIAGNOSIS: Lymph node, anterior mediastinal lymph node: - Reactive changes with sinus histiocytosis and anthracosis. COMMENT: There are no granulomas. There is no evidence of malignancy. ([facility]:; 03/10/2017) REPORT ELECTRONICALLY SIGNED BY: Robert Salguero M.D. DATE/TIME: 03/10/2017 17:14 * * * * * * * * GROSS PATHOLOGY: Received in formalin labeled "Jeremy Matta anterior mediastinal lymph node" is a 1.5 x 0.9 x 0.5 cm murray-portillo anthracotic possible lymph node. The specimen is serially sectioned and submitted entirely in cassette A1. [place] [place] INITIAL CPT CODE(S): A; 14841 Professional services performed by [facility] [place] [address] Technical services performed by [facility] at [address] [place] [address]. SPECIMEN(S) RECEIVED: A.Anterior mediastinal lymph node CLINICAL HISTORY: Unstable angina PATIENT: JEREMY MATTA /AGE: [id number] 1950 (Age: 66) PATIENT #: [id number] ALT CASE #: SPECIMEN COLLECTION DATE: 03/08/2017 SPECIMEN RECEIVED DATE: 03/09/2017 [facility] - [address] [place] [address] - PHONE: [phone] * * * END OF REPORT * * *
[2017-03-11 02:06] VITALS: BP 111/63
[2017-03-11] MEDS: ONDANSETRON PF 4 MG/2 ML VIAL. IV PRN ×2 (02:11→08:48)
[2017-03-11 07:00] VITALS: BP 119/58
[2017-03-11] MEDS: AMIODARONE HCL 200 MG TABLET. PO SCH ×2 (08:47→20:46)
[2017-03-11] MEDS: METOPROLOL TART IMMED RELEASE 25 MG TABLET. PO SCH ×2 (08:47→20:47)
[2017-03-11] MEDS: FAMOTIDINE 20 MG TABLET. PO SCH ×2 (08:47→20:47)
[2017-03-11] MEDS: ASPIRIN ENTERIC COATED 325 MG TABLET.DR. PO SCH (08:48)
[2017-03-11] MEDS: oxyCODONE/APAP 5/325 1 TAB TABLET PO PRN ×2 (08:48→20:48)
--- NOTE | 2017-03-11 08:50 | RAD ---
Chest radiograph 03/11/2017 Clinical indication: Postoperative evaluation. Comparison: Chest 03/10/2017 Findings: Removal of right IJ central venous catheter. Prior median sternotomy. Mild cardiomegaly. Unchanged patchy bibasilar opacities. No pneumothorax. Impression: 1. Unchanged patchy bibasilar opacities which may represent atelectasis, infection, or aspiration. 2. Removal of right IJ central venous catheter.
[2017-03-11] MEDS: SENNOSIDES/DOCUSATE 8.6/50MG TABLET. PO SCH ×2 (08:55→20:47)
[2017-03-11 11:00] VITALS: BP 141/63
[2017-03-11 15:07] VITALS: BP 119/76
[2017-03-11 15:29] LABS: HEMATOCRIT 24.6 % (39.0-53.0); HEMOGLOBIN 7.8 g/dL (13.0-17.5)
--- NOTE | 2017-03-11 16:08 | PDOC ---
Progress Note Subjective Subjective Doing very well. Normotensive and in sinus rhythm. On 2 lit NC. Labs noted. No pain. Chest x-ray:atelectasis/low lung volumes, maybe early left pleural effusion. 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 Normotensive and in sinus rhythm. On 2 lit NC. Labs noted. No pain. Chest x-ray:atelectasis/low lung volumes, maybe early left pleural effusion. Plan Plan of Care Oral amiodarone for afib prophylaxis. Will stop prior to discharge x1 dose iv lasix 40mg ASA, beta lance and statin Ambulation and pulmonary toilet Hammonds will stay in until patient has seen a urologist, owing to his urethral stricture D/c to rehab, as early as tomorrow ARNALDO GALINDO MD Mar 11, 2017 16:08
[2017-03-11] MEDS ORDERED: FUROSEMIDE 40 MG/4 ML VIAL. IVP ONE (16:15)
--- NOTE | 2017-03-11 16:38 | PDOC ---
PROGRESS NOTES Subjective Subjective Chin feels better today. He was ambulating earlier. Objective Objective Vital Signs Date Time Temp Pulse Resp B/P (MAP) Pulse Ox O2 Delivery O2 Flow Rate FiO2 03/11/17 15:07 99.5 89 19 119/76 (90) 95 Nasal Cannula 2.0 99.5 Intake and Output 03/12/17 07:00 Output Total 1750 ml Balance -1750 ml Output Urine Total 1750 ml Physical Exam Physical Exam No significant changes in cardiac exam Assessment Assessment The patient continues to progress normally. Since he lives alone I would agree that he needs to go to [facility]dc for a few days before he can be discharged home. In addition to that I would like to keep the Hammonds in place until he sees Dr. Crump as an outpatient at [facility]. Comment Review of Relevant I have reviewed the following items mckenzie (where applicable) has been applied. Labs Laboratory Tests Test 03/09/17 18:14 03/09/17 19:21 03/09/17 20:17 03/09/17 21:25 Glucose (Fingerstick) 128 mg/dL (70-99) 119 mg/dL (70-99) 119 mg/dL (70-99) 117 mg/dL (70-99) Test 03/10/17 00:30 03/10/17 04:07 03/10/17 06:05 03/10/17 12:48 Glucose (Fingerstick) 103 mg/dL (70-99) 103 mg/dL (70-99) 114 mg/dL (70-99) White Blood Count 12.9 x10^3/uL (4.0-11.0) Red Blood Count 3.12 x10^6/uL (4.30-5.70) Hemoglobin 7.3 g/dL (13.0-17.5) Hematocrit 23.7 % (39.0-53.0) Mean Corpuscular Volume 76 fL (79-100) Mean Corpuscular Hemoglobin 24 pg (25-35) Mean Corpuscular Hemoglobin Concent 31 g/dL (31-37) Red Cell Distribution Width 16.8 % (11.5-14.5) Platelet Count 161 x10^3/uL (140-400) Neutrophils (%) (Auto) 81 % (31-73) Lymphocytes (%) (Auto) 7 % (24-48) Monocytes (%) (Auto) 11 % (0-9) Eosinophils (%) (Auto) 1 % (0-3) Basophils (%) (Auto) 0 % (0-3) Neutrophils # (Auto) 10.5 x10^3uL (1.8-7.7) Lymphocytes # (Auto) 0.9 x10^3/uL (1.0-4.8) Monocytes # (Auto) 1.4 x10^3/uL (0.0-1.1) Eosinophils # (Auto) 0.1 x10^3/uL (0.0-0.7) Basophils # (Auto) 0.0 x10^3/uL (0.0-0.2) Sodium Level 133 mmol/L (136-145) Potassium Level 3.5 mmol/L (3.5-5.1) Chloride Level 100 mmol/L (98-107) Carbon Dioxide Level 27 mmol/L (21-32) Anion Gap 6 (6-14) Blood Urea Nitrogen 21 mg/dL (8-26) Creatinine 1.3 mg/dL (0.7-1.3) Estimated GFR (Cockcroft-Gault) 54.9 Glucose Level 117 mg/dL (70-99) Calcium Level 7.9 mg/dL (8.5-10.1) Magnesium Level 1.9 mg/dL (1.8-2.4) Test 03/11/17 15:10 Hemoglobin 7.8 g/dL (13.0-17.5) Hematocrit 24.6 % (39.0-53.0) Potassium Level 3.4 mmol/L (3.5-5.1) Laboratory Tests Test 03/11/17 15:10 Hemoglobin 7.8 g/dL (13.0-17.5) Hematocrit 24.6 % (39.0-53.0) Potassium Level 3.4 mmol/L (3.5-5.1) Medications Current Medications Ondansetron HCl (Zofran) 4 mg PRN Q6HRS PRN IV NAUSEA/VOMITING Last administered on 03/08/17t 19:17; Start 03/08/17 at 07:00; Stop 03/09/17 at 06 :59; Status DC Fentanyl Citrate (Fentanyl 2ml Vial) 25 mcg PRN Q5MIN PRN IV MILD PAIN; Start 03/08/17 at 07:00; Stop 03/09/17 at 06:59; Status DC Fentanyl Citrate (Fentanyl 2ml Vial) 50 mcg PRN Q5MIN PRN IV MODERATE PAIN; Start 03/08/17 at 07:00; Stop 03/09/17 at 06:59; Status DC Morphine Sulfate 1 mg PRN Q10MIN PRN IV SEVERE PAIN Last administered on 17:22; Start 03/08/17 at 07:00; Stop 03/09/17 at 06:59; Status DC Ringer's Solution 1,000 ml @ 0 mls/hr Q0M IV Last administered on 03/08/17 06:18; Start 03/08/17 at 07:00; Stop 03/08/17 at 18:59; Status DC Lidocaine HCl (Xylocaine-Mpf 1% Vial) 2 ml PRN 1X PRN ID PRIOR TO IV START; Start 03/08/17 at 07:00; Stop 03/09/17 at 06:59; Status DC Hydromorphone HCl (Dilaudid) 0.5 mg PRN Q10MIN PRN IV SEV PAIN, Second choice; Start 03/08/17 at 07:00; Stop 03/09/17 at 06:59; Status DC Prochlorperazine Edisylate (Compazine) 5 mg PACU PRN PRN IV NAUSEA, MRX1; Start 03/08/17 at 07:00; Stop 03/09/17 at 06:59; Status DC Cefazolin Sodium/ Dextrose 50 ml @ As Directed STK-MED ONCE IV ; Start at 06:22; Stop 03/08/17 at 06:23; Status DC Lidocaine HCl (Lidocaine Pf 2% Vial) 5 ml STK-MED ONCE .ROUTE ; Start 03/08/17 at 06:48; Stop 03/08/17 at 06:49; Status DC Phenylephrine HCl (Alvarez-Synephrine Inj) 10 mg STK-MED ONCE .ROUTE ; Start at 06:48; Stop 03/08/17 at 06:49; Status DC Etomidate (Amidate) 20 mg STK-MED ONCE IV ; Start 03/08/17 at 06:48; Stop at 06:49; Status DC Nitroglycerin/ Dextrose 250 ml @ As Directed STK-MED ONCE IV ; Start 03/08/17 at 06:48; Stop 03/08/17 at 06:49; Status DC Rocuronium Andrews (Zemuron) 100 mg STK-MED ONCE .ROUTE ; Start 03/08/17 at 06: 49; Stop 03/08/17 at 06:50; Status DC Sufentanil Citrate (Sufenta) 100 mcg STK-MED ONCE .ROUTE ; Start 03/08/17 at 06 :49; Stop 03/08/17 at 06:50; Status DC Midazolam HCl (Versed) 2 mg STK-MED ONCE .ROUTE ; Start 03/08/17 at 06:49; Stop 03/08/17 at 06:50; Status DC Heparin Sodium (Porcine) 30,000 unit STK-MED ONCE .ROUTE ; Start 03/08/17 at 06 :50; Stop 03/08/17 at 06:51; Status DC Aminocaproic Acid (Amicar) 5,000 mg STK-MED ONCE IV ; Start 03/08/17 at 06:50; Stop 03/08/17 at 06:51; Status DC Sufentanil Citrate (Sufenta) 250 mcg STK-MED ONCE .ROUTE ; Start 03/08/17 at 07 :04; Stop 03/08/17 at 07:05; Status DC Vancomycin HCl (Vanco) 10 gm STK-MED ONCE .ROUTE Last administered on 08:59; Start 03/08/17 at 07:38; Stop 03/08/17 at 07:39; Status DC Cellulose 1 each STK-MED ONCE .ROUTE Last administered on 03/08/17 08:59; Start 03/08/17 at 07:38; Stop 03/08/17 at 07:39; Status DC Papaverine HCl 60 mg STK-MED ONCE .ROUTE Last administered on 03/08/17 08:59 ; Start 03/08/17 at 07:38; Stop 03/08/17 at 07:39; Status DC Aspirin (Aspirin) 300 mg STK-MED ONCE .ROUTE Last administered on 03/08/17 14 :19; Start 03/08/17 at 07:38; Stop 03/08/17 at 07:39; Status DC Sodium Chloride (Sodium Chloride) 50 ml STK-MED ONCE IJ Last administered on 08:59; Start 03/08/17 at 07:39; Stop 03/08/17 at 07:40; Status DC Cefazolin Sodium/ Dextrose 50 ml @ 100 mls/hr 1X PREOP IV ; Start 03/08/17 at 07:45; Stop 03/09/17 at 18:00; Status DC Potassium Chloride 70 meq/ Sodium Bicarbonate 12.5 meq/Lidocaine HCl 24 ml/ Parenteral Electrolytes 571.5 ml @ 571.5 mls/ hr 1X PERIOP ONCE IRR Last administered on 03/08/17 10:53; Start 03/08/17 at 06:00; Stop 03/08/17 at 07 :45; Status DC Potassium Chloride 15 meq/ Sodium Bicarbonate 12.5 meq/Parenteral Electrolytes 520 ml @ 520 mls/hr 1X PERIOP ONCE IRR Last administered on 03/08/17 10:53 ; Start 03/08/17 at 06:00; Stop 03/08/17 at 07:45; Status DC Cefazolin Sodium 1 gm/Sodium Chloride 500 ml @ 500 mls/hr 1X PERIOP ONCE IRR Last administered on 03/08/17 08:58; Start 03/08/17 at 06:00; Stop 03/08/17 at 07:45; Status DC Heparin Sodium (Porcine) 18773 unit/Ringer's Solution 1,020 ml @ 1,020 mls/hr 1X PERIOP ONCE IRR Last administered on 03/08/17 08:58; Start 03/08/17 at 06:00; Stop 03/08/17 at 07:45; Status DC Midazolam HCl (Versed) 2 mg STK-MED ONCE .ROUTE ; Start 03/08/17 at 08:14; Stop 03/08/17 at 08:15; Status DC Insulin Human Regular 150 unit/ Sodium Chloride 151.5 ml @ 9.59 mls/hr CONT PRN IV SEE I/O RECORD Last administered on 03/08/17 18:15; Start 03/08/17 at 09:30; Stop 03/11/17 at 14:46; Status DC Rocuronium Andrews (Zemuron) 100 mg STK-MED ONCE .ROUTE ; Start 03/08/17 at 09: 32; Stop 03/08/17 at 09:33; Status DC Heparin Sodium (Porcine) (Heparin Sodium) 10,000 unit STK-MED ONCE .ROUTE ; Start 03/08/17 at 09:32; Stop 03/08/17 at 09:33; Status DC Rocuronium Andrews (Zemuron) 100 mg STK-MED ONCE .ROUTE ; Start 03/08/17 at 11: 34; Stop 03/08/17 at 11:35; Status DC Midazolam HCl (Versed) 2 mg STK-MED ONCE .ROUTE ; Start 03/08/17 at 12:09; Stop 03/08/17 at 12:10; Status DC Protamine Sulfate 250 mg STK-MED ONCE IV ; Start 03/08/17 at 12:23; Stop 03/08 at 12:24; Status DC Propofol 100 ml @ As Directed STK-MED ONCE IV ; Start 03/08/17 at 12:24; Stop 03/08/17 at 12:25; Status DC Protamine Sulfate 250 mg STK-MED ONCE IV ; Start 03/08/17 at 12:26; Stop 03/08 at 12:27; Status DC Cefazolin Sodium/ Dextrose (Ancef 2gm Premix) 2 gm STK-MED ONCE IV ; Start at 06:30; Stop 03/08/17 at 12:28; Status DC Calcium Chloride 1,000 mg STK-MED ONCE IV ; Start 03/08/17 at 12:51; Stop at 12:52; Status DC Calcium Chloride 1,000 mg STK-MED ONCE IV ; Start 03/08/17 at 12:54; Stop at 12:55; Status DC Calcium Chloride 1,000 mg STK-MED ONCE IV ; Start 03/08/17 at 12:54; Stop at 12:55; Status DC Heparin Sodium (Porcine) (Heparin Sodium) 10,000 unit STK-MED ONCE .ROUTE ; Start 03/08/17 at 12:54; Stop 03/08/17 at 12:55; Status DC Heparin Sodium (Porcine) (Heparin Sodium) 10,000 unit STK-MED ONCE .ROUTE ; Start 03/08/17 at 12:54; Stop 03/08/17 at 12:55; Status DC Heparin Sodium (Porcine) 30,000 unit STK-MED ONCE .ROUTE ; Start 03/08/17 at 12 :54; Stop 03/08/17 at 12:55; Status DC Lidocaine HCl (Lidocaine Pf 2% Vial) 5 ml STK-MED ONCE .ROUTE ; Start 03/08/17 at 12:54; Stop 03/08/17 at 12:55; Status DC Magnesium Sulfate 5 gm STK-MED ONCE .ROUTE ; Start 03/08/17 at 12:55; Stop at 12:56; Status DC Mannitol (Mannitol) 12.5 g STK-MED ONCE .ROUTE ; Start 03/08/17 at 12:55; Stop 03/08/17 at 12:56; Status DC Albumin Human 100 ml @ As Directed STK-MED ONCE IV ; Start 03/08/17 at 12:55; Stop 03/08/17 at 12:56; Status DC Sodium Chloride (Normal Saline Flush) 3 ml PRN Q12HR PRN IV AFTER MEDS AND BLOOD DRAWS; Start 03/08/17 at 13:00 Ringer's Solution 1,000 ml @ 30 mls/hr Q24H IV Last administered on t 09:12; Start 03/08/17 at 12:47; Stop 03/11/17 at 14:46; Status DC Albumin Human 250 ml @ 60 mls/hr PRN Q4HRS PRN IV SEE I/O RECORD; Start 03/08 at 13:00; Stop 03/11/17 at 14:46; Status DC Insulin Human Regular 150 unit/ Sodium Chloride 151.5 ml @ 0 mls/hr CONT PRN PRN IV SEE I/O RECORD; Start 03/08/17 at 13:00; Stop 03/09/17 at 08:28; Status DC Dextrose (Dextrose 50%-Water Syringe) 25 gm PRN Q15MIN PRN IV LOW BLOOD SUGAR; Start 03/08/17 at 13:00; Stop 03/11/17 at 14:46; Status DC Amiodarone HCl (Cordarone) 400 mg BID PO Last administered on 03/11/17t 08:47 ; Start 03/09/17 at 09:00 Info 1 ea CONT PRN PRN MC SEE COMMENTS; Start 03/08/17 at 13:00; Stop at 14:46; Status DC Info 1 ea CONT PRN PRN MC SEE COMMENTS; Start 03/08/17 at 13:00; Stop at 14:46; Status DC Magnesium Sulfate/ Dextrose 100 ml @ 100 mls/hr PRN DAILY PRN IV FOR MAG < 2.2 ; Start 03/08/17 at 13:00; Stop 03/11/17 at 14:46; Status DC Famotidine (Pepcid Vial) 20 mg BID IVP Last administered on 03/08/17 21:03; Start 03/08/17 at 21:00; Stop 03/09/17 at 07:10; Status DC Ondansetron HCl (Zofran) 4 mg PRN Q4HRS PRN IV NAUSEA/VOMITING Last administered on 03/11/17 08:48; Start 03/08/17 at 13:00 Prochlorperazine Edisylate (Compazine) 10 mg PRN Q6HRS PRN IV NAUSEA/VOMITING Last administered on 03/08/17 21:04; Start 03/08/17 at 13:00 Morphine Sulfate 2 mg PRN Q1HR PRN IV PAIN Last administered on 03/09/17 15: 08; Start 03/08/17 at 13:00; Stop 03/11/17 at 14:46; Status DC Acetaminophen (Tylenol) 650 mg PRN Q4HRS PRN PO MILD PAIN / TEMP; Start at 13:00 Acetaminophen (Acetaminophen Supp) 650 mg PRN Q4HRS PRN IL MILD PAIN / TEMP; Start 03/08/17 at 13:00 Meperidine HCl (Demerol) 12.5 mg PRN Q15MIN PRN IV SHIVERING; Start 03/08/17 at 13:00; Stop 03/09/17 at 12:47; Status DC Senna/Docusate Sodium (Senna Plus) 1 tab BID PO Last administered on 21:07; Start 03/08/17 at 21:00 Bisacodyl (Dulcolax Supp) 10 mg PRN DAILY PRN IL NO BOWEL MOVEMENT; Start at 13:00 Aspirin (Ecotrin) 325 mg DAILYWBKFT PO Last administered on 03/11/17 08:48; Start 03/09/17 at 08:00 Metoprolol Tartrate (Lopressor) 25 mg BID PO Last administered on 03/11/17 08 :47; Start 03/09/17 at 09:00 Nicardipine HCl 50 mg/Sodium Chloride 270 ml @ 0 mls/hr CONT PRN PRN IV PER PROTOCOL; Start 03/08/17 at 13:00; Stop 03/08/17 at 14:46; Status DC Oxycodone/ Acetaminophen (Percocet 5/325) 1 tab PRN Q4HRS PRN PO MILD PAIN Last administered on 03/11/17 08:48; Start 03/08/17 at 13:00 Oxycodone/ Acetaminophen (Percocet 5/325) 2 tab PRN Q4HRS PRN PO MODERATE PAIN , SEVERE PAIN Last administered on 03/10/17 09:13; Start 03/08/17 at 13:00 Cefazolin Sodium 1 gm/Dextrose 50 ml @ 100 mls/hr Q8H IV ; Start 03/08/17 at 13:00; Stop 03/08/17 at 14:57; Status DC Sodium Bicarbonate 50 meq STK-MED ONCE .ROUTE ; Start 03/08/17 at 12:56; Stop 03/08/17 at 12:57; Status DC Albumin Human 500 ml @ As Directed STK-MED ONCE IV ; Start 03/08/17 at 13:08; Stop 03/08/17 at 13:09; Status DC Rocuronium Andrews (Zemuron) 50 mg STK-MED ONCE .ROUTE ; Start 03/08/17 at 13: 27; Stop 03/08/17 at 13:28; Status DC Phenylephrine HCl (Alvarez-Synephrine Inj) 10 mg STK-MED ONCE .ROUTE ; Start at 14:15; Stop 03/08/17 at 14:16; Status DC Phenylephrine HCl (Alvarez-Synephrine Inj) 10 mg STK-MED ONCE .ROUTE ; Start at 14:15; Stop 03/08/17 at 14:16; Status DC Clevidipine 100 ml @ 0 mls/hr CONT PRN IV PER PROTOCOL Last administered on 15:02; Start 03/08/17 at 14:30; Stop 03/11/17 at 14:46; Status DC Amiodarone HCl 150 mg/Dextrose 103 ml @ 618 mls/hr 1X ONCE IV Last administered on 03/08/17 15:30; Start 03/08/17 at 14:30; Stop 03/08/17 at 14 :49; Status DC Amiodarone HCl 900 mg/Dextrose 518 ml @ 0 mls/hr CONT PRN IV SEE I/O RECORD Last administered on 03/08/17 15:29; Start 03/08/17 at 14:30; Stop 03/08/17 at 15:30; Status DC Clevidipine 100 ml @ 0 mls/hr CONT PRN IV PER PROTOCOL; Start 03/08/17 at 14: 30; Status UNV Cefazolin Sodium (Ancef) 1 gm Q8H IVP Last administered on 03/10/17 05:00; Start 03/08/17 at 16:30; Stop 03/10/17 at 05:01; Status DC Sodium Bicarbonate 50 meq 1X ONCE IV Last administered on 03/08/17 16:14; Start 03/08/17 at 16:00; Stop 03/08/17 at 16:03; Status DC Potassium Chloride 50 ml @ 50 mls/hr Q1H IV Last administered on 03/08/17 19: 49; Start 03/08/17 at 16:30; Stop 03/08/17 at 19:29; Status DC Potassium Chloride 50 ml @ 50 mls/hr 1X ONCE IV ; Start 03/08/17 at 16:30; Stop 03/08/17 at 17:29; Status UNV Potassium Chloride 50 ml @ 50 mls/hr 1X ONCE IV Last administered on 05:28; Start 03/09/17 at 05:30; Stop 03/09/17 at 06:29; Status DC Famotidine (Pepcid) 20 mg BID PO Last administered on 03/11/17 08:47; Start 03/09/17 at 09:00 Furosemide (Lasix) 40 mg 1X ONCE IVP Last administered on 03/09/17 13:24; Start 03/09/17 at 11:00; Stop 03/09/17 at 11:01; Status DC Albumin Human 250 ml @ 250 mls/hr Q1HR IV Last administered on 03/09/17 12: 43; Start 03/09/17 at 11:00; Stop 03/09/17 at 12:59; Status DC Potassium Chloride 50 ml @ 50 mls/hr Q1H IV Last administered on 03/10/17 12: 23; Start 03/10/17 at 08:00; Stop 03/10/17 at 10:59; Status DC Magnesium Sulfate/ Dextrose 100 ml @ 100 mls/hr 1X ONCE IV Last administered on 03/10/17 10:00; Start 03/10/17 at 10:00; Stop 03/10/17 at 10:59; Status DC Albumin Human (Plasmanate) 25 g STK-MED ONCE IV ; Start 03/08/20 at 12:00; Stop 03/08/20 at 12:01; Status DC Furosemide (Lasix) 40 mg 1X ONCE IVP ; Start 03/11/17 at 16:15; Stop at 16:16; Status DC Active Scripts Active Reported Aspirin Ec (Aspirin) 325 Mg Tablet.dr 1 Tab PO DAILY Lisinopril 20 Mg Tablet 1 Tab PO DAILY Metoprolol Tartrate 25 Mg Tablet 25 Mg PO BID Vitals/I & O Vital Sign - Last 24 Hours 03/10/17 03/10/17 03/10/17 03/10/17 17:20 19:08 20:05 21:09 Temp 98.5 98.5 Pulse 93 92 Resp 20 18 B/P (MAP) 126/60 (82) 126/60 Pulse Ox 91 O2 Delivery Room Air Nasal Cannula O2 Flow Rate 2.0 03/10/17 03/10/17 03/11/17 03/11/17 21:09 23:12 02:06 04:07 Temp 98.6 98.0 98.6 98.0 Pulse 94 94 99 Resp 18 18 B/P (MAP) 126/60 108/58 (75) 111/63 (79) Pulse Ox 94 94 O2 Delivery Nasal Cannula Room Air Nasal Cannula O2 Flow Rate 2.0 2.0 03/11/17 03/11/17 03/11/17 03/11/17 07:00 08:15 08:47 08:47 Temp 99.5 99.5 Pulse 95 95 95 Resp 18 B/P (MAP) 119/58 (78) 119/58 119/58 Pulse Ox 93 O2 Delivery Room Air Room Air 03/11/17 03/11/17 03/11/17 03/11/17 08:48 09:45 11:00 15:07 Temp 97.7 99.5 97.7 99.5 Pulse 85 89 Resp 18 19 B/P (MAP) 141/63 (89) 119/76 (90) Pulse Ox 93 95 95 95 O2 Delivery Nasal Cannula Room Air Room Air Nasal Cannula O2 Flow Rate 2.0 2.0 2.0 Intake and Output 03/11/17 03/11/17 03/12/17 15:00 23:00 07:00 Output Total 750 ml 1000 ml Balance -750 ml -1000 ml KYREE ZAVALA MD Mar 11, 2017 16:38
[2017-03-11] MEDS ORDERED: FAMO20TA5 PO (18:18)
[2017-03-11] MEDS ORDERED: ASPI325T11 PO (18:18)
[2017-03-11] MEDS ORDERED: METO25TA4 PO (18:18)
[2017-03-11] MEDS ORDERED: OXYC1TAB7 PO (18:18)
[2017-03-11] MEDS ORDERED: ATOR40TA59 PO (18:20)
[2017-03-11 19:52] VITALS: BP 110/74
[2017-03-11] MEDS ORDERED: ATORVASTATIN CALCIUM 40 MG TABLET. PO SCH (21:00)
[2017-03-11 23:22] VITALS: BP 107/59
[2017-03-12 00:51] LABS: BILIRUBIN,URINE NEGATIVE (NEG); GLUCOSE,URINE NEGATIVE (NEG); NITRITE,URINE NEGATIVE (NEG); PROTEIN,URINE NEGATIVE (NEG-TRACE); UROBILINOGEN,URINE 0.2 mg/dL (0.2 mg/dL)
[2017-03-12 00:58] LABS: BACTERIA,URINE 0 /HPF (0-FEW); RBC,URINE OCC /HPF (0-2)
[2017-03-12 00:59] LABS: SQUAMOUS EPITHELIAL CELL,UR OCC /LPF
[2017-03-12] MEDS: oxyCODONE/APAP 5/325 1 TAB TABLET PO PRN ×2 (01:39→08:22)
[2017-03-12 04:18] VITALS: BP 105/59
[2017-03-12 08:00] VITALS: BP 119/65
[2017-03-12] MEDS: METOPROLOL TART IMMED RELEASE 25 MG TABLET. PO SCH (08:21)
[2017-03-12] MEDS: AMIODARONE HCL 200 MG TABLET. PO SCH (08:21)
[2017-03-12] MEDS: ASPIRIN ENTERIC COATED 325 MG TABLET.DR. PO SCH (08:22)
[2017-03-12] MEDS: SENNOSIDES/DOCUSATE 8.6/50MG TABLET. PO SCH (08:22)
[2017-03-12] MEDS: FAMOTIDINE 20 MG TABLET. PO SCH (08:22)
[2017-03-12 11:01] VITALS: BP 110/58
--- NOTE | 2017-03-12 11:03 | PDOC3 ---
Discharge Summary* Date of Admission: Mar 08, 2017 Date of Discharge: Mar 12, 2017 Admitting Diagnosis Unstable angina Left main coronary artery disease Ischemic cardiomyopathy (EF 45%) Hypertension Hyperlipidemia Chronic renal failure Urethral stricture Problems: Final Diagnosis Unstable angina; s/p CABG X 3 Left main coronary artery disease Ischemic cardiomyopathy (EF 45%) Hypertension Hyperlipidemia Chronic renal failure Urethral stricture requiring indwelling Hammonds catheter CONSULTS 1. Cardiology: Dr. Porter Russell 2. Urology Procedures 03/08/2017: CABG x 3 (SHELL to LAD, SVG to OM1, SVG to OM2) Left endoscopic greater saphenous vein harvest Insertion of right femoral arterial line Brief Hospital Course Mr. Matta is a 66 old male with a 2 month history of unstable angina with progressive symptoms, including chest pain and dyspnea with minimal exertion. Cardiac catheterization demonstrated high-grade stenosis in the proximal LAD, proximal circumflex, and the ostium of a large OM 1. The RCA is a relatively small vessel with minimal disease. LV systolic function is mildly depressed with an EF of 45%. Cardiac surgery was scheduled and then delayed due to a urethral stricture and difficulty with placing a Hammonds catheter. He was discharged home on 03/05/2017 and returned 04/28/2016 to undergo CABG X 3 with an uncomplicated post-operative course. Wounds are healing well. No cardiac dysrhythmias. Patient to be discharged to SNF later today with indwelling urinary catheter not to be removed until further evaluation by Urology. Disposition/Orders: D/C to Another Facility ([facility]) CONDITION AT DISCHARGE: Stable Diet: 2 gr sodium, Cardiac Scheduled Aspirin (Aspirin Ec), 1 TAB PO DAILY, (Reported) Aspirin (Aspirin Ec), 325 MG PO DAILYWBKFT Atorvastatin Calcium (Atorvastatin Calcium), 40 MG PO HS Famotidine (Famotidine), 20 MG PO BID Lisinopril (Lisinopril), 1 TAB PO DAILY, (Reported) Metoprolol Tartrate (Metoprolol Tartrate), 25 MG PO BID, (Reported) Metoprolol Tartrate (Metoprolol Tartrate), 25 MG PO BID Discontinued Medications Aspirin (Aspirin), 81 MG PO DAILY, (Reported) Lisinopril (Lisinopril), 20 MG PO DAILY, (Reported) Naproxen (Naprosyn), 500 MG PO BID, (Reported) Naproxen (Naprosyn), 1 TAB PO BIDAFTMEAL PRN PRN for PAIN, (Reported) FOLLOW UP APPOINTMENT: Dr. Yasmeen Bower on 04/02/2017 @ 1:[address] Destiny Russell in 2 -4 weeks Urology as scheduled PCP follow up after discharge from SNF Time Spent Total time spent with patient > 35 minutes minutes for coordination of care, counseling, and education. [facility]: I certify this patient is under my care and that I, or a nurse practitioner or physician's resident assistant working with me, had a face to face encounter that meets the physician face to face encounter requirements with this patient on 03/12/2017. Admit to: accepting physician Lab: prn Diet: 2 gram sodium; heart healthy Activity: ambulate at least QID; daily shower with soap and water to all incisions - blot dry PT: consult and treat OT: consult and treat Other: FSBS: Oxygen: on room air MELODY GARZON APRN Mar 12, 2017 11:03
[2017-03-12] MEDS ORDERED: OXYC-323 PO ×4 (13:01→13:33)
--- NOTE | 2017-03-12 13:23 | PDOC ---
Progress Note Subjective Subjective Doing very well. Normotensive and in sinus rhythm. On room air. No pain. ROS ROS No nausea No vomiting No pain No rash Vital Sign Vital Signs Vital Signs Date Time Temp Pulse Resp B/P (MAP) Pulse Ox O2 Delivery O2 Flow Rate FiO2 03/12/17 11:01 98.5 82 18 110/58 (75) 95 Room Air 98.5 03/12/17 09:20 2.0 Physical Exam PHYSICAL EXAM GENERAL: NAD, Alert HEENT: PERRL, OC/OP NECK: Supple, no JVD, no LN LUNGS: Clear HEART: S1S2, no gallop, no murmur INCISIONS: intact ABD: Soft, NT, no organomegaly, no rebound EXT: No edema, no cyanosis CAR MOVER: Alert, oriented x 3, no focal neurologic deficit SKIN: No rash IV: ok Labs Lab Laboratory Tests Test 03/11/17 15:10 03/11/17 21:07 03/11/17 23:30 Hemoglobin 7.8 g/dL (13.0-17.5) Hematocrit 24.6 % (39.0-53.0) Potassium Level 3.4 mmol/L (3.5-5.1) Glucose (Fingerstick) 102 mg/dL (70-99) Urine Collection Type Unknown Urine Color Yellow Urine Clarity Clear Urine pH 6.0 Urine Specific Moore 1.015 Urine Protein Negative mg/dL (NEG-TRACE) Urine Glucose (UA) Negative mg/dL (NEG) Urine Ketones (Stick) Negative mg/dL (NEG) Urine Blood Negative (NEG) Urine Nitrite Negative (NEG) Urine Bilirubin Negative (NEG) Urine Urobilinogen Dipstick 0.2 mg/dL (0.2 mg/dL) Urine Leukocyte Esterase Negative (NEG) Urine RBC Occ /HPF (0-2) Urine WBC 1-4 /HPF (0-4) Urine Squamous Epithelial Cells Occ /LPF Urine Bacteria 0 /HPF (0-FEW) Urine Hyaline Casts Occasional /HPF Urine Mucus Slight /LPF Objective Assessment POD#4, 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 Normotensive and in sinus rhythm. On room air. No pain. Plan Plan of Care D/c to [facility] placed today Stop amiodarone ASA, beta lance and statin Hammonds will stay in until patient has seen a urologist, owing to his urethral stricture. Dr. Russell has scheduled an outpatient appointment for him to see a urologist at [facility] Follow-up with me in clinic in 3 weeks ARNALDO GALINDO MD Mar 12, 2017 13:23
[2017-03-12 14:42] VITALS: BP 118/58
--- NOTE | 2017-03-12 15:14 | PDOC ---
PROGRESS NOTES Subjective Subjective No new issues Objective Objective Vital Signs Date Time Temp Pulse Resp B/P (MAP) Pulse Ox O2 Delivery O2 Flow Rate FiO2 03/12/17 14:42 99.1 95 18 118/58 (78) 90 Room Air 99.1 03/12/17 09:20 2.0 Physical Exam Physical Exam No changes in cardiac exam Assessment Assessment Patient improving. Good progress post CABG. I agree with discharge to alf facility Comment Review of Relevant I have reviewed the following items mckenzie (where applicable) has been applied. Labs Laboratory Tests Test 03/11/17 15:10 03/11/17 21:07 03/11/17 23:30 Hemoglobin 7.8 g/dL (13.0-17.5) Hematocrit 24.6 % (39.0-53.0) Potassium Level 3.4 mmol/L (3.5-5.1) Glucose (Fingerstick) 102 mg/dL (70-99) Urine Collection Type Unknown Urine Color Yellow Urine Clarity Clear Urine pH 6.0 Urine Specific [place] 1.015 Urine Protein Negative mg/dL (NEG-TRACE) Urine Glucose (UA) Negative mg/dL (NEG) Urine Ketones (Stick) Negative mg/dL (NEG) Urine Blood Negative (NEG) Urine Nitrite Negative (NEG) Urine Bilirubin Negative (NEG) Urine Urobilinogen Dipstick 0.2 mg/dL (0.2 mg/dL) Urine Leukocyte Esterase Negative (NEG) Urine RBC Occ /HPF (0-2) Urine WBC 1-4 /HPF (0-4) Urine Squamous Epithelial Cells Occ /LPF Urine Bacteria 0 /HPF (0-FEW) Urine Hyaline Casts Occasional /HPF Urine Mucus Slight /LPF Laboratory Tests Test 03/11/17 21:07 03/11/17 23:30 Glucose (Fingerstick) 102 mg/dL (70-99) Urine Collection Type Unknown Urine Color Yellow Urine Clarity Clear Urine pH 6.0 Urine Specific [place] 1.015 Urine Protein Negative mg/dL (NEG-TRACE) Urine Glucose (UA) Negative mg/dL (NEG) Urine Ketones (Stick) Negative mg/dL (NEG) Urine Blood Negative (NEG) Urine Nitrite Negative (NEG) Urine Bilirubin Negative (NEG) Urine Urobilinogen Dipstick 0.2 mg/dL (0.2 mg/dL) Urine Leukocyte Esterase Negative (NEG) Urine RBC Occ /HPF (0-2) Urine WBC 1-4 /HPF (0-4) Urine Squamous Epithelial Cells Occ /LPF Urine Bacteria 0 /HPF (0-FEW) Urine Hyaline Casts Occasional /HPF Urine Mucus Slight /LPF Medications Current Medications Ondansetron HCl (Zofran) 4 mg PRN Q6HRS PRN IV NAUSEA/VOMITING Last administered on 03/08/17 19:17; Start 03/08/17 at 07:00; Stop 03/09/17 at 06 :59; Status DC Fentanyl Citrate (Fentanyl 2ml Vial) 25 mcg PRN Q5MIN PRN IV MILD PAIN; Start 03/08/17 at 07:00; Stop 03/09/17 at 06:59; Status DC Fentanyl Citrate (Fentanyl 2ml Vial) 50 mcg PRN Q5MIN PRN IV MODERATE PAIN; Start 03/08/17 at 07:00; Stop 03/09/17 at 06:59; Status DC Morphine Sulfate 1 mg PRN Q10MIN PRN IV SEVERE PAIN Last administered on 17:22; Start 03/08/17 at 07:00; Stop 03/09/17 at 06:59; Status DC Ringer's Solution 1,000 ml @ 0 mls/hr Q0M IV Last administered on 03/08/17 06:18; Start 03/08/17 at 07:00; Stop 03/08/17 at 18:59; Status DC Lidocaine HCl (Xylocaine-Mpf 1% Vial) 2 ml PRN 1X PRN ID PRIOR TO IV START; Start 03/08/17 at 07:00; Stop 03/09/17 at 06:59; Status DC Hydromorphone HCl (Dilaudid) 0.5 mg PRN Q10MIN PRN IV SEV PAIN, Second choice; Start 03/08/17 at 07:00; Stop 03/09/17 at 06:59; Status DC Prochlorperazine Edisylate (Compazine) 5 mg PACU PRN PRN IV NAUSEA, MRX1; Start 03/08/17 at 07:00; Stop 03/09/17 at 06:59; Status DC Cefazolin Sodium/ Dextrose 50 ml @ As Directed STK-MED ONCE IV ; Start at 06:22; Stop 03/08/17 at 06:23; Status DC Lidocaine HCl (Lidocaine Pf 2% Vial) 5 ml STK-MED ONCE .ROUTE ; Start 03/08/17 at 06:48; Stop 03/08/17 at 06:49; Status DC Phenylephrine HCl (Alvarez-Synephrine Inj) 10 mg STK-MED ONCE .ROUTE ; Start at 06:48; Stop 03/08/17 at 06:49; Status DC Etomidate (Amidate) 20 mg STK-MED ONCE IV ; Start 03/08/17 at 06:48; Stop at 06:49; Status DC Nitroglycerin/ Dextrose 250 ml @ As Directed STK-MED ONCE IV ; Start 03/08/17 at 06:48; Stop 03/08/17 at 06:49; Status DC Rocuronium [place] (Zemuron) 100 mg STK-MED ONCE .ROUTE ; Start 03/08/17 at 06: 49; Stop 03/08/17 at 06:50; Status DC Sufentanil Citrate (Sufenta) 100 mcg STK-MED ONCE .ROUTE ; Start 03/08/17 at 06 :49; Stop 03/08/17 at 06:50; Status DC Midazolam HCl (Versed) 2 mg STK-MED ONCE .ROUTE ; Start 03/08/17 at 06:49; Stop 03/08/17 at 06:50; Status DC Heparin Sodium (Porcine) 30,000 unit STK-MED ONCE .ROUTE ; Start 03/08/17 at 06 :50; Stop 03/08/17 at 06:51; Status DC Aminocaproic Acid (Amicar) 5,000 mg STK-MED ONCE IV ; Start 03/08/17 at 06:50; Stop 03/08/17 at 06:51; Status DC Sufentanil Citrate (Sufenta) 250 mcg STK-MED ONCE .ROUTE ; Start 03/08/17 at 07 :04; Stop 03/08/17 at 07:05; Status DC Vancomycin HCl (Vanco) 10 gm STK-MED ONCE .ROUTE Last administered on 08:59; Start 03/08/17 at 07:38; Stop 03/08/17 at 07:39; Status DC Cellulose 1 each STK-MED ONCE .ROUTE Last administered on 03/08/17 08:59; Start 03/08/17 at 07:38; Stop 03/08/17 at 07:39; Status DC Papaverine HCl 60 mg STK-MED ONCE .ROUTE Last administered on 03/08/17 08:59 ; Start 03/08/17 at 07:38; Stop 03/08/17 at 07:39; Status DC Aspirin (Aspirin) 300 mg STK-MED ONCE .ROUTE Last administered on 03/08/17 14 :19; Start 03/08/17 at 07:38; Stop 03/08/17 at 07:39; Status DC Sodium Chloride (Sodium Chloride) 50 ml STK-MED ONCE IJ Last administered on 08:59; Start 03/08/17 at 07:39; Stop 03/08/17 at 07:40; Status DC Cefazolin Sodium/ Dextrose 50 ml @ 100 mls/hr 1X PREOP IV ; Start 03/08/17 at 07:45; Stop 03/09/17 at 18:00; Status DC Potassium Chloride 70 meq/ Sodium Bicarbonate 12.5 meq/Lidocaine HCl 24 ml/ Parenteral Electrolytes 571.5 ml @ 571.5 mls/ hr 1X PERIOP ONCE IRR Last administered on 03/08/17 10:53; Start 03/08/17 at 06:00; Stop 03/08/17 at 07 :45; Status DC Potassium Chloride 15 meq/ Sodium Bicarbonate 12.5 meq/Parenteral Electrolytes 520 ml @ 520 mls/hr 1X PERIOP ONCE IRR Last administered on 03/08/17 10:53 ; Start 03/08/17 at 06:00; Stop 03/08/17 at 07:45; Status DC Cefazolin Sodium 1 gm/Sodium Chloride 500 ml @ 500 mls/hr 1X PERIOP ONCE IRR Last administered on 03/08/17 08:58; Start 03/08/17 at 06:00; Stop 03/08/17 at 07:45; Status DC Heparin Sodium (Porcine) 05969 unit/Ringer's Solution 1,020 ml @ 1,020 mls/hr 1X PERIOP ONCE IRR Last administered on 03/08/17 08:58; Start 03/08/17 at 06:00; Stop 03/08/17 at 07:45; Status DC Midazolam HCl (Versed) 2 mg STK-MED ONCE .ROUTE ; Start 03/08/17 at 08:14; Stop 03/08/17 at 08:15; Status DC Insulin Human Regular 150 unit/ Sodium Chloride 151.5 ml @ 9.59 mls/hr CONT PRN IV SEE I/O RECORD Last administered on 03/08/17t 18:15; Start 03/08/17 at 09:30; Stop 03/11/17 at 14:46; Status DC Rocuronium [place] (Zemuron) 100 mg STK-MED ONCE .ROUTE ; Start 03/08/17 at 09: 32; Stop 03/08/17 at 09:33; Status DC Heparin Sodium (Porcine) (Heparin Sodium) 10,000 unit STK-MED ONCE .ROUTE ; Start 03/08/17 at 09:32; Stop 03/08/17 at 09:33; Status DC Rocuronium [place] (Zemuron) 100 mg STK-MED ONCE .ROUTE ; Start 03/08/17 at 11: 34; Stop 03/08/17 at 11:35; Status DC Midazolam HCl (Versed) 2 mg STK-MED ONCE .ROUTE ; Start 03/08/17 at 12:09; Stop 03/08/17 at 12:10; Status DC Protamine Sulfate 250 mg STK-MED ONCE IV ; Start 03/08/17 at 12:23; Stop 03/08 at 12:24; Status DC Propofol 100 ml @ As Directed STK-MED ONCE IV ; Start 03/08/17 at 12:24; Stop 03/08/17 at 12:25; Status DC Protamine Sulfate 250 mg STK-MED ONCE IV ; Start 03/08/17 at 12:26; Stop 03/08 at 12:27; Status DC Cefazolin Sodium/ Dextrose (Ancef 2gm Premix) 2 gm STK-MED ONCE IV ; Start at 06:30; Stop 03/08/17 at 12:28; Status DC Calcium Chloride 1,000 mg STK-MED ONCE IV ; Start 03/08/17 at 12:51; Stop at 12:52; Status DC Calcium Chloride 1,000 mg STK-MED ONCE IV ; Start 03/08/17 at 12:54; Stop at 12:55; Status DC Calcium Chloride 1,000 mg STK-MED ONCE IV ; Start 03/08/17 at 12:54; Stop at 12:55; Status DC Heparin Sodium (Porcine) (Heparin Sodium) 10,000 unit STK-MED ONCE .ROUTE ; Start 03/08/17 at 12:54; Stop 03/08/17 at 12:55; Status DC Heparin Sodium (Porcine) (Heparin Sodium) 10,000 unit STK-MED ONCE .ROUTE ; Start 03/08/17 at 12:54; Stop 03/08/17 at 12:55; Status DC Heparin Sodium (Porcine) 30,000 unit STK-MED ONCE .ROUTE ; Start 03/08/17 at 12 :54; Stop 03/08/17 at 12:55; Status DC Lidocaine HCl (Lidocaine Pf 2% Vial) 5 ml STK-MED ONCE .ROUTE ; Start 03/08/17 at 12:54; Stop 03/08/17 at 12:55; Status DC Magnesium Sulfate 5 gm STK-MED ONCE .ROUTE ; Start 03/08/17 at 12:55; Stop at 12:56; Status DC Mannitol (Mannitol) 12.5 g STK-MED ONCE .ROUTE ; Start 03/08/17 at 12:55; Stop 03/08/17 at 12:56; Status DC Albumin Human 100 ml @ As Directed STK-MED ONCE IV ; Start 03/08/17 at 12:55; Stop 03/08/17 at 12:56; Status DC Sodium Chloride (Normal Saline Flush) 3 ml PRN Q12HR PRN IV AFTER MEDS AND BLOOD DRAWS; Start 03/08/17 at 13:00 Ringer's Solution 1,000 ml @ 30 mls/hr Q24H IV Last administered on t 09:12; Start 03/08/17 at 12:47; Stop 03/11/17 at 14:46; Status DC Albumin Human 250 ml @ 60 mls/hr PRN Q4HRS PRN IV SEE I/O RECORD; Start 03/08 at 13:00; Stop 03/11/17 at 14:46; Status DC Insulin Human Regular 150 unit/ Sodium Chloride 151.5 ml @ 0 mls/hr CONT PRN PRN IV SEE I/O RECORD; Start 03/08/17 at 13:00; Stop 03/09/17 at 08:28; Status DC Dextrose (Dextrose 50%-Water Syringe) 25 gm PRN Q15MIN PRN IV LOW BLOOD SUGAR; Start 03/08/17 at 13:00; Stop 03/11/17 at 14:46; Status DC Amiodarone HCl (Cordarone) 400 mg BID PO Last administered on 03/12/17 08:21 ; Start 03/09/17 at 09:00 Info 1 ea CONT PRN PRN MC SEE COMMENTS; Start 03/08/17 at 13:00; Stop at 14:46; Status DC Info 1 ea CONT PRN PRN MC SEE COMMENTS; Start 03/08/17 at 13:00; Stop at 14:46; Status DC Magnesium Sulfate/ Dextrose 100 ml @ 100 mls/hr PRN DAILY PRN IV FOR MAG < 2.2 ; Start 03/08/17 at 13:00; Stop 03/11/17 at 14:46; Status DC Famotidine (Pepcid Vial) 20 mg BID IVP Last administered on 03/08/17 21:03; Start 03/08/17 at 21:00; Stop 03/09/17 at 07:10; Status DC Ondansetron HCl (Zofran) 4 mg PRN Q4HRS PRN IV NAUSEA/VOMITING Last administered on 03/11/17 08:48; Start 03/08/17 at 13:00 Prochlorperazine Edisylate (Compazine) 10 mg PRN Q6HRS PRN IV NAUSEA/VOMITING Last administered on 03/08/17 21:04; Start 03/08/17 at 13:00 Morphine Sulfate 2 mg PRN Q1HR PRN IV PAIN Last administered on 03/09/17 15: 08; Start 03/08/17 at 13:00; Stop 03/11/17 at 14:46; Status DC Acetaminophen (Tylenol) 650 mg PRN Q4HRS PRN PO MILD PAIN / TEMP Last administered on 03/11/17 17:08; Start 03/08/17 at 13:00 Acetaminophen (Acetaminophen Supp) 650 mg PRN Q4HRS PRN [place] MILD PAIN / TEMP; Start 03/08/17 at 13:00; Stop 03/11/17 at 18:27; Status DC Meperidine HCl (Demerol) 12.5 mg PRN Q15MIN PRN IV SHIVERING; Start 03/08/17 at 13:00; Stop 03/09/17 at 12:47; Status DC Senna/Docusate Sodium (Senna Plus) 1 tab BID PO Last administered on 08:22; Start 03/08/17 at 21:00 Bisacodyl (Dulcolax Supp) 10 mg PRN DAILY PRN [place] NO BOWEL MOVEMENT; Start at 13:00 Aspirin (Ecotrin) 325 mg DAILYWBKFT PO Last administered on 03/12/17 08:22; Start 03/09/17 at 08:00 Metoprolol Tartrate (Lopressor) 25 mg BID PO Last administered on 03/12/17 08 :21; Start 03/09/17 at 09:00 Nicardipine HCl 50 mg/Sodium Chloride 270 ml @ 0 mls/hr CONT PRN PRN IV PER PROTOCOL; Start 03/08/17 at 13:00; Stop 03/08/17 at 14:46; Status DC Oxycodone/ Acetaminophen (Percocet 5/325) 1 tab PRN Q4HRS PRN PO MILD PAIN Last administered on 03/12/17 08:22; Start 03/08/17 at 13:00 Oxycodone/ Acetaminophen (Percocet 5/325) 2 tab PRN Q4HRS PRN PO MODERATE PAIN , SEVERE PAIN Last administered on 03/10/17 09:13; Start 03/08/17 at 13:00 Cefazolin Sodium 1 gm/Dextrose 50 ml @ 100 mls/hr Q8H IV ; Start 03/08/17 at 13:00; Stop 03/08/17 at 14:57; Status DC Sodium Bicarbonate 50 meq STK-MED ONCE .ROUTE ; Start 03/08/17 at 12:56; Stop 03/08/17 at 12:57; Status DC Albumin Human 500 ml @ As Directed STK-MED ONCE IV ; Start 03/08/17 at 13:08; Stop 03/08/17 at 13:09; Status DC Rocuronium [place] (Zemuron) 50 mg STK-MED ONCE .ROUTE ; Start 03/08/17 at 13: 27; Stop 03/08/17 at 13:28; Status DC Phenylephrine HCl (Alvarez-Synephrine Inj) 10 mg STK-MED ONCE .ROUTE ; Start at 14:15; Stop 03/08/17 at 14:16; Status DC Phenylephrine HCl (Alvarez-Synephrine Inj) 10 mg STK-MED ONCE .ROUTE ; Start at 14:15; Stop 03/08/17 at 14:16; Status DC Clevidipine 100 ml @ 0 mls/hr CONT PRN IV PER PROTOCOL Last administered on 15:02; Start 03/08/17 at 14:30; Stop 03/11/17 at 14:46; Status DC Amiodarone HCl 150 mg/Dextrose 103 ml @ 618 mls/hr 1X ONCE IV Last administered on 03/08/17 15:30; Start 03/08/17 at 14:30; Stop 03/08/17 at 14 :49; Status DC Amiodarone HCl 900 mg/Dextrose 518 ml @ 0 mls/hr CONT PRN IV SEE I/O RECORD Last administered on 03/08/17 15:29; Start 03/08/17 at 14:30; Stop 03/08/17 at 15:30; Status DC Clevidipine 100 ml @ 0 mls/hr CONT PRN IV PER PROTOCOL; Start 03/08/17 at 14: 30; Status UNV Cefazolin Sodium (Ancef) 1 gm Q8H IVP Last administered on 03/10/17 05:00; Start 03/08/17 at 16:30; Stop 03/10/17 at 05:01; Status DC Sodium Bicarbonate 50 meq 1X ONCE IV Last administered on 03/08/17 16:14; Start 03/08/17 at 16:00; Stop 03/08/17 at 16:03; Status DC Potassium Chloride 50 ml @ 50 mls/hr Q1H IV Last administered on 03/08/17 19: 49; Start 03/08/17 at 16:30; Stop 03/08/17 at 19:29; Status DC Potassium Chloride 50 ml @ 50 mls/hr 1X ONCE IV ; Start 03/08/17 at 16:30; Stop 03/08/17 at 17:29; Status UNV Potassium Chloride 50 ml @ 50 mls/hr 1X ONCE IV Last administered on 05:28; Start 03/09/17 at 05:30; Stop 03/09/17 at 06:29; Status DC Famotidine (Pepcid) 20 mg BID PO Last administered on 03/12/17 08:22; Start 03/09/17 at 09:00 Furosemide (Lasix) 40 mg 1X ONCE IVP Last administered on 03/09/17 13:24; Start 03/09/17 at 11:00; Stop 03/09/17 at 11:01; Status DC Albumin Human 250 ml @ 250 mls/hr Q1HR IV Last administered on 03/09/17 12: 43; Start 03/09/17 at 11:00; Stop 03/09/17 at 12:59; Status DC Potassium Chloride 50 ml @ 50 mls/hr Q1H IV Last administered on 03/10/17 12: 23; Start 03/10/17 at 08:00; Stop 03/10/17 at 10:59; Status DC Magnesium Sulfate/ Dextrose 100 ml @ 100 mls/hr 1X ONCE IV Last administered on 03/10/17 10:00; Start 03/10/17 at 10:00; Stop 03/10/17 at 10:59; Status DC Albumin Human (Plasmanate) 25 g STK-MED ONCE IV ; Start 03/08/20 at 12:00; Stop 03/08/20 at 12:01; Status DC Furosemide (Lasix) 40 mg 1X ONCE IVP Last administered on 03/11/17 16:55; Start 03/11/17 at 16:15; Stop 03/11/17 at 16:16; Status DC Atorvastatin Calcium (Lipitor) 40 mg QHS PO Last administered on 03/11/17 20: 47; Start 03/11/17 at 21:00 Active Scripts Active Atorvastatin Calcium 40 Mg Tablet 40 Mg PO HS 30 Days Metoprolol Tartrate 25 Mg Tablet 25 Mg PO BID Famotidine 20 Mg Tablet 20 Mg PO BID Aspirin Ec (Aspirin) 325 Mg Tablet. 325 Mg PO DAILYWBKFT Reported Percocet 5-325 Mg Tablet (Oxycodone/Acetaminophen) 1 Each Tablet 1-2 Tab PO Q4- 6HRS Vitals/I & O Vital Sign - Last 24 Hours 03/11/17 03/11/17 03/11/17 03/11/17 19:52 20:00 20:46 20:47 Temp 99.2 99.2 Pulse 90 102 100 Resp 19 B/P (MAP) 110/74 (86) 111/56 111/56 Pulse Ox 95 O2 Delivery Nasal Cannula Nasal Cannula O2 Flow Rate 2.0 2.0 03/11/17 03/11/17 03/12/17 03/12/17 20:48 23:22 01:39 02:39 Temp 98.3 98.3 Pulse 79 Resp 22 18 22 20 B/P (MAP) 107/59 (75) Pulse Ox 91 O2 Delivery Room Air 03/12/17 03/12/17 03/12/17 03/12/17 04:18 08:00 08:10 08:21 Temp 98.4 98.7 98.4 98.7 Pulse 83 92 89 Resp 18 18 B/P (MAP) 105/59 (74) 119/65 (83) 119/65 Pulse Ox 91 90 O2 Delivery Room Air Room Air Nasal Cannula O2 Flow Rate 2.0 03/12/17 03/12/17 03/12/17 03/12/17 08:21 08:22 09:20 11:01 Temp 98.5 98.5 Pulse 89 82 Resp 18 B/P (MAP) 119/65 110/58 (75) Pulse Ox 91 91 95 O2 Delivery Nasal Cannula Nasal Cannula Room Air O2 Flow Rate 2.0 2.0 03/12/17 14:42 Temp 99.1 99.1 Pulse 95 Resp 18 B/P (MAP) 118/58 (78) Pulse Ox 90 O2 Delivery Room Air KYREE ZAVALA MD Mar 12, 2017 15:14
[2017-04-28] MEDS ORDERED: NAPR-683 PO (09:29)
[2017-04-28] MEDS ORDERED: SULF1TAB24 PO (09:29)
[2020-03-08] MEDS ORDERED: ALBUMIN HUMAN 5% 12.5 G/250 ML VIAL. IV ONE (12:00)
== END 2017-03-12 16:01 | DRG 236 ==
LOC: OPSVCIP 05:34 → 1 WEST ICU 09:00 → 2 NORTH 03-10 19:53
PROVIDERS: ADMIT Thoracic Surgery (Cardiothoracic Vascular Surgery); ATTEND Thoracic Surgery (Cardiothoracic Vascular Surgery)
PROC: 021109W Bypass Coronary Artery, Two Arteries from Aorta with Autologous Venous Tissue, Open Approach (ICD-10-PCS; 2017-03-08)
PROC: 06BQ4ZZ Excision of Left Saphenous Vein, Percutaneous Endoscopic Approach (ICD-10-PCS; 2017-03-08)
PROC: 07B70ZZ Excision of Thorax Lymphatic, Open Approach (ICD-10-PCS; 2017-03-08)
PROC: 5A1221Z Performance of Cardiac Output, Continuous (ICD-10-PCS; 2017-03-08)
PROC: 02100Z9 Bypass Coronary Artery, One Artery from Left Internal Mammary, Open Approach (ICD-10-PCS; principal; 2017-03-08 07:30)
DX: I25.110 Atherosclerotic heart disease of native coronary artery with unstable angina pectoris (principal); E78.5 Hyperlipidemia, unspecified; J98.11 Atelectasis; I12.9 Hypertensive chronic kidney disease with stage 1 through stage 4 chronic kidney disease, or unspecified chronic kidney disease; N18.9 Chronic kidney disease, unspecified; I25.5 Ischemic cardiomyopathy; Z96.649 Presence of unspecified artificial hip joint; M19.90 Unspecified osteoarthritis, unspecified site; N35.9 Urethral stricture, unspecified; Z82.49 Family history of ischemic heart disease and other diseases of the circulatory system
CPT/HCPCS: 36415; 36600; 71010; 80048; 81001; 82310; 82803; 82805; 82962; 83735; 84132; 85014; 85018; 85025; 85027; 85347; 85384; 85610; 85730; 86850; 86900; 86901; 86920; 88305; 93005; 94002; C1781; J0282; J0690; J0780; J1644; J1815; J1940; J2150; J2250; J2270; J2405; J2440; J2704; J3370; J3475; J3480; J3490; J7030; J7040; J7120; P9016; P9041; P9045; P9046; S0028; 97116; 97530; 97535; C9248; J2001

== ENCOUNTER → 2017-04-02 | Outpatient (CLI) | payer MEDICARE ==
[2017-03-12 14:42] VITALS: BP 118/58
[~2017-04-02] MED LIST changes: +ASPI325T11 PO; +ATOR40TA59 PO; +FAMO20TA5 PO; +OXYC-323 PO; +OXYC1TAB7 PO
--- NOTE | 2017-04-02 11:57 | RAD ---
Of the of the Chest 04/02/2017 2:00 AM Indication: STATUS POST CORONARY ARTERY GRAFT Comparison: Chest radiograph March 11, 2017 Findings: There is interval decrease in, but persistent loculated appearing left pleural effusion. Aeration of the left lower lobe is improved in the interim. There is persistent underlying atelectasis. Elevation of the anterior left hemidiaphragm noted on lateral view. No pneumothorax. Right lung is clear. Prior median sternotomy noted. No acute bony changes are seen. Impression: Interval decrease in but persistent loculated left basilar effusion with underlying atelectasis
== END | disposition home or self-care (01) ==
LOC: RAD 11:29
PROVIDERS: ATTEND Thoracic Surgery (Cardiothoracic Vascular Surgery)
DX: Z00.00 Encounter for general adult medical examination without abnormal findings (principal); Z95.1 Presence of aortocoronary bypass graft
CPT/HCPCS: 71020

== ENCOUNTER 2017-04-05 08:12 | Outpatient (CLI) | payer MEDICARE ==
[~2017-04-05] VITALS: Ht 175.3 cm; Wt 97.5 kg
[2017-04-05 08:31] VITALS: BP 126/65
[2017-04-05 08:35] LABS: BASO # 0.1 x10^3/uL (0.0-0.2); BASO % 1 % (0-3); EOS % 5 % (0-3); HEMOGLOBIN 9.9 g/dL (13.0-17.5); LYMPH # 1.2 x10^3/uL (1.0-4.8); LYMPH % 13 % (24-48); MEAN CORPUSCULAR HEMOGLOBIN 22 pg (25-35); MEAN CORPUSCULAR HGB CONC 30 g/dL (31-37); MEAN CORPUSCULAR VOLUME 74 fL (79-100); MONO % 11 % (0-9); NEUT % 70 % (31-73); PLATELET COUNT 385 x10^3/uL (140-400); RED BLOOD COUNT 4.47 x10^6/uL (4.30-5.70); RED CELL DISTRIBUTION WIDTH 17.2 % (11.5-14.5); WHITE BLOOD COUNT 9.4 x10^3/uL (4.0-11.0)
[2017-04-05] MEDS ORDERED: LISI-334 PO (08:43)
[2017-04-05 08:54] LABS: INR 1.1 (0.8-1.1); PROTHROMBIN TIME PATIENT 13.3 SEC (11.7-14.0)
[2017-04-05] MEDS ORDERED: LIDOCAINE 1% / SOD BICARB 8.4% 20 ML VIAL. IJ ONE ×2 (09:59→10:30)
[2017-04-05 10:17] VITALS: BP 123/67
[2017-04-05 10:22] VITALS: BP 122/70
[2017-04-05 10:32] VITALS: BP 112/58
[2017-04-05 10:52] VITALS: BP 117/63
[2017-04-05 11:35] LABS: ANISOCYTOSIS SLIGHT; HYPOCHROMIA MOD; MICROCYTOSIS SLIGHT; PLT ESTIMATE ADEQUATE (ADEQUATE)
[2017-04-05 11:36] LABS: OVALOCYTES OCC
[2017-04-05 11:37] LABS: SCHISTOCYTES OCC
[2017-04-05 11:41] LABS: STOMATOCYTES OCC
--- NOTE | 2017-04-05 11:46 | RAD ---
Ultrasound-guided right-sided thoracentesis 04/05/2017 11:42 AM Indication: LEFT PLEURL EFFUSION Procedure: Informed consent was obtained. A timeout procedure was performed. Sonographic evaluation of the left chest was performed demonstrating moderate pleural effusion. The left posterior chest was prepped and draped in sterile fashion. 1% lidocaine without epinephrine was administered for local anesthesia. Real-time ultrasonographic guidance was used in passing a 5 Hebrew [employer]and[employer] catheter into the left pleural space. 1.2 L of serosanguineous pleural fluid was removed. The catheter was removed and pressure held to achieve hemostasis. A sterile dressing was applied. No immediate complications were identified. The patient tolerated the procedure well. Impression: Left sided ultrasound-guided thoracentesis
[2017-04-05 11:54] VITALS: BP 119/69
--- NOTE | 2017-04-05 16:04 | RAD ---
Single view of the Chest 04/05/2017 1:45 PM Indication: Postop thoracentesis Comparison: Chest radiograph, 04/02/2017 Findings: Decreased left pleural effusion noted in the interim. Some mild residual effusion or atelectasis. Is noted. Right lung remains clear changes of median sternotomy again noted. No acute bony changes are seen. Impression: Decreased left pleural effusion. Some mild residual fluid or atelectasis appears to be present.
== END 2017-04-05 12:10 | disposition home or self-care (01) ==
LOC: INTRAD 08:12
PROVIDERS: ATTEND Thoracic Surgery (Cardiothoracic Vascular Surgery)
DX: J90 Pleural effusion, not elsewhere classified (principal); J98.11 Atelectasis; I25.110 Atherosclerotic heart disease of native coronary artery with unstable angina pectoris; M19.90 Unspecified osteoarthritis, unspecified site; I12.9 Hypertensive chronic kidney disease with stage 1 through stage 4 chronic kidney disease, or unspecified chronic kidney disease; N18.9 Chronic kidney disease, unspecified; I25.5 Ischemic cardiomyopathy; Z95.1 Presence of aortocoronary bypass graft; Z96.649 Presence of unspecified artificial hip joint; Z82.49 Family history of ischemic heart disease and other diseases of the circulatory system
CPT/HCPCS: 32555; 36415; 71010; 85025; 85610

== ENCOUNTER → 2017-04-23 | Outpatient (CLI) | payer MEDICARE | END | disposition home or self-care (01) | LOC: RAD 10:32 | DX: J90 Pleural effusion, not elsewhere classified (principal) | CPT/HCPCS: 71020 ==

== ENCOUNTER → 2017-04-28 | Outpatient (CLI) | payer MEDICARE ==
[2017-04-28 08:52] LABS: ADD MAN DIFF? NO
[2017-04-28 08:55] LABS: BASO # 0.1 x10^3/uL (0.0-0.2); BASO % 2 % (0-3); EOS # 0.5 x10^3/uL (0.0-0.7); EOS % 8 % (0-3); HEMATOCRIT 28.5 % (39.0-53.0); HEMOGLOBIN 8.6 g/dL (13.0-17.5); LYMPH # 0.9 x10^3/uL (1.0-4.8); LYMPH % 14 % (24-48); MEAN CORPUSCULAR HEMOGLOBIN 22 pg (25-35); MEAN CORPUSCULAR HGB CONC 30 g/dL (31-37); MEAN CORPUSCULAR VOLUME 71 fL (79-100); MONO # 0.8 x10^3/uL (0.0-1.1); MONO % 12 % (0-9); NEUT # 4.4 x10^3uL (1.8-7.7); NEUT % 65 % (31-73); PLATELET COUNT 304 x10^3/uL (140-400); RED BLOOD COUNT 3.99 x10^6/uL (4.30-5.70); RED CELL DISTRIBUTION WIDTH 17.3 % (11.5-14.5); WHITE BLOOD COUNT 6.7 x10^3/uL (4.0-11.0)
[2017-04-28 09:09] LABS: INR 1.2 (0.8-1.1); PROTHROMBIN TIME PATIENT 14.1 SEC (11.7-14.0)
[2017-04-28 09:32] LABS: ANISOCYTOSIS SLIGHT; PLT ESTIMATE ADEQUATE (ADEQUATE)
== END | disposition home or self-care (01) ==
LOC: INTRAD 08:01
DX: J90 Pleural effusion, not elsewhere classified (principal); Z88.6 Allergy status to analgesic agent
CPT/HCPCS: 32555; 36415; 71045; 85025; 85610

== ENCOUNTER → 2017-05-18 | Outpatient (CLI) | payer MEDICARE | END | disposition home or self-care (01) | LOC: RAD 10:40 | DX: J90 Pleural effusion, not elsewhere classified (principal) | CPT/HCPCS: 71046 ==

== ENCOUNTER 2017-05-21 13:06 | Inpatient (IN) | payer MEDICARE ==
[2017-05-21 13:48] LABS: ADD MAN DIFF? NO
[2017-05-21 13:51] LABS: BASO # 0.1 x10^3/uL (0.0-0.2); BASO % 1 % (0-3); EOS # 0.5 x10^3/uL (0.0-0.7); EOS % 6 % (0-3); HEMOGLOBIN 8.8 g/dL (13.0-17.5); LYMPH # 1.5 x10^3/uL (1.0-4.8); LYMPH % 19 % (24-48); MEAN CORPUSCULAR HEMOGLOBIN 21 pg (25-35); MEAN CORPUSCULAR HGB CONC 30 g/dL (31-37); MEAN CORPUSCULAR VOLUME 69 fL (79-100); MONO % 12 % (0-9); NEUT # 4.8 x10^3uL (1.8-7.7); NEUT % 61 % (31-73); PLATELET COUNT 405 x10^3/uL (140-400); RED BLOOD COUNT 4.22 x10^6/uL (4.30-5.70); RED CELL DISTRIBUTION WIDTH 17.3 % (11.5-14.5); WHITE BLOOD COUNT 7.9 x10^3/uL (4.0-11.0)
[2017-05-21 14:05] LABS: ANION GAP 10 (6-14); BLOOD UREA NITROGEN 17 mg/dL (8-26); BUN/CREATININE RATIO 13 (6-20); CALCIUM 9.1 mg/dL (8.5-10.1); CARBON DIOXIDE 27 mmol/L (21-32); CHLORIDE 102 mmol/L (98-107); CREATININE 1.3 mg/dL (0.7-1.3); GFR 54.9; GLUCOSE 115 mg/dL (70-99); POTASSIUM 3.6 mmol/L (3.5-5.1); SODIUM 139 mmol/L (136-145)
[2017-05-21 14:11] LABS: TROPONINI < 0.017 ng/mL (0.000-0.055)
[2017-05-21 14:11] LABS: ALBUMIN 3.7 g/dL (3.4-5.0); ALK PHOS 110 U/L (46-116); ALT (SGPT) 15 U/L (16-63); AST (SGOT) 14 U/L (15-37); TOTAL BILIRUBIN 0.8 mg/dL (0.2-1.0); TOTAL PROTEIN 7.5 g/dL (6.4-8.2)
[2017-05-21 14:15] LABS: NT-PRO BNP 2699 pg/mL (0-124)
[2017-05-21 14:59] LABS: ANISOCYTOSIS SLIGHT; HYPOCHROMIA MARKED; MICROCYTOSIS MARKED; PLT ESTIMATE ADEQUATE (ADEQUATE); POIKILOCYTOSIS SLIGHT
[2017-05-21 15:00] LABS: OVALOCYTES FEW; SCHISTOCYTES OCC
[2017-05-21] MEDS ORDERED: ACETAMINOPHEN 325 MG TABLET. PO ×2 (15:45)
[2017-05-21] MEDS: FUROSEMIDE 40 MG/4 ML VIAL. IVP ×2 (15:58)
[2017-05-21] MEDS ORDERED: cloNIDine HCL 0.1 MG TABLET PO ×2 (16:30)
[2017-05-21] MEDS ORDERED: diphenhydrAMINE HCL 25 MG CAPSULE PO ×2 (16:30)
[2017-05-21] MEDS ORDERED: ONDANSETRON PF 4 MG/2 ML VIAL. IV ×2 (16:30)
[2017-05-21 16:55] LABS: % SAT IRON 3 % (15-34); IRON,SERUM 15 ug/dL (65-175)
[2017-05-21] MEDS: NAPROXEN 500 MG TABLET PO ×2 (20:36)
[2017-05-21] MEDS: METOPROLOL TART IMMED RELEASE 25 MG TABLET. PO ×2 (20:36)
[2017-05-21] MEDS: ATORVASTATIN CALCIUM 40 MG TABLET. PO ×2 (20:36)
[2017-05-21] MEDS: FAMOTIDINE 20 MG TABLET. PO ×2 (20:36)
[2017-05-21 22:56] LABS: TROPONINI < 0.017 ng/mL (0.000-0.055)
[2017-05-22 05:18] LABS: ADD MAN DIFF? NO
[2017-05-22 05:42] LABS: BASO # 0.1 x10^3/uL (0.0-0.2); BASO % 1 % (0-3); EOS # 0.5 x10^3/uL (0.0-0.7); EOS % 6 % (0-3); HEMATOCRIT 26.1 % (39.0-53.0); HEMOGLOBIN 8.1 g/dL (13.0-17.5); LYMPH # 1.1 x10^3/uL (1.0-4.8); LYMPH % 14 % (24-48); MEAN CORPUSCULAR HEMOGLOBIN 21 pg (25-35); MEAN CORPUSCULAR HGB CONC 31 g/dL (31-37); MEAN CORPUSCULAR VOLUME 68 fL (79-100); MONO % 13 % (0-9); NEUT # 5.1 x10^3uL (1.8-7.7); NEUT % 66 % (31-73); PLATELET COUNT 382 x10^3/uL (140-400); RED BLOOD COUNT 3.83 x10^6/uL (4.30-5.70); RED CELL DISTRIBUTION WIDTH 17.3 % (11.5-14.5); WHITE BLOOD COUNT 7.8 x10^3/uL (4.0-11.0)
[2017-05-22 06:54] LABS: TROPONINI < 0.017 ng/mL (0.000-0.055)
[2017-05-22 06:55] LABS: ANION GAP 10 (6-14); BLOOD UREA NITROGEN 19 mg/dL (8-26); CALCIUM 8.8 mg/dL (8.5-10.1); CARBON DIOXIDE 29 mmol/L (21-32); CHLORIDE 103 mmol/L (98-107); CREATININE 1.3 mg/dL (0.7-1.3); GFR 54.9; GLUCOSE 74 mg/dL (70-99); POTASSIUM 3.2 mmol/L (3.5-5.1); SODIUM 142 mmol/L (136-145)
[2017-05-22] MEDS: NAPROXEN 500 MG TABLET PO ×4 (09:57→21:13)
[2017-05-22] MEDS: ASPIRIN ENTERIC COATED 325 MG TABLET.DR. PO ×2 (09:57)
[2017-05-22] MEDS: FAMOTIDINE 20 MG TABLET. PO ×4 (09:57→21:13)
[2017-05-22] MEDS: METOPROLOL TART IMMED RELEASE 25 MG TABLET. PO ×4 (09:57→21:12)
[2017-05-22 13:14] LABS: FERRITIN 26 ng/mL (26-388)
[2017-05-22] MEDS: IRON SUCROSE COMPLEX 500 MG in IV NORMAL SALINE 250ML 250 ML IV (14:54)
[2017-05-22] MEDS: POTASSIUM CHLORIDE 20 MEQ TABLET.ER. PO ×2 (18:15)
[2017-05-22] MEDS: ATORVASTATIN CALCIUM 40 MG TABLET. PO ×2 (21:12)
[2017-05-23] MEDS: IPRATRPIUM/ALBUTEROL 0.5/2.5MG 3 ML NEBU. NEB ×2 (03:26)
[2017-05-23] MEDS: ASPIRIN ENTERIC COATED 325 MG TABLET.DR. PO ×2 (08:00)
[2017-05-23] MEDS: NAPROXEN 500 MG TABLET PO ×4 (09:08→21:12)
[2017-05-23] MEDS: METOPROLOL TART IMMED RELEASE 25 MG TABLET. PO ×4 (09:08→21:11)
[2017-05-23] MEDS: FAMOTIDINE 20 MG TABLET. PO ×4 (09:08→21:11)
[2017-05-23] MEDS ORDERED: LIDOCAINE 1% PF 2 ML VIAL. INJ ×2 (12:00)
[2017-05-23] MEDS: LIDOCAINE 1% Multi-Dose 20 ML VIAL. INJ ×4 (12:45→14:52)
[2017-05-23] MEDS ORDERED: MORPHINE SULFATE 2 MG/ML DISP.SYRIN. IV ×2 (14:30)
[2017-05-23] MEDS: oxyCODONE/APAP 5/325 1 TAB TABLET PO ×4 (15:19→21:12)
[2017-05-23] MEDS ORDERED: IPRATRPIUM/ALBUTEROL 0.5/2.5MG 3 ML NEBU. NEB ×2 (20:30)
[2017-05-23] MEDS: ATORVASTATIN CALCIUM 40 MG TABLET. PO ×2 (21:11)
[2017-05-24] MEDS: ASPIRIN ENTERIC COATED 325 MG TABLET.DR. PO ×2 (08:58)
[2017-05-24] MEDS: NAPROXEN 500 MG TABLET PO ×4 (08:59→21:05)
[2017-05-24] MEDS: oxyCODONE/APAP 5/325 1 TAB TABLET PO ×4 (09:00→16:17)
[2017-05-24] MEDS: FAMOTIDINE 20 MG TABLET. PO ×4 (09:00→21:06)
[2017-05-24] MEDS: METOPROLOL TART IMMED RELEASE 25 MG TABLET. PO ×4 (09:00→21:04)
[2017-05-24] MEDS: ATORVASTATIN CALCIUM 40 MG TABLET. PO ×2 (21:03)
[2017-05-24] MEDS: POTASSIUM CHLORIDE 20 MEQ TABLET.ER. PO ×2 (21:04)
[2017-05-25 08:46] LABS: ADD MAN DIFF? NO
[2017-05-25] MEDS: NAPROXEN 500 MG TABLET PO ×4 (09:00→21:18)
[2017-05-25 09:06] LABS: BASO # 0.1 x10^3/uL (0.0-0.2); BASO % 1 % (0-3); EOS # 0.8 x10^3/uL (0.0-0.7); EOS % 9 % (0-3); HEMATOCRIT 29.8 % (39.0-53.0); HEMOGLOBIN 8.9 g/dL (13.0-17.5); LYMPH # 1.1 x10^3/uL (1.0-4.8); LYMPH % 12 % (24-48); MEAN CORPUSCULAR HEMOGLOBIN 21 pg (25-35); MEAN CORPUSCULAR HGB CONC 30 g/dL (31-37); MEAN CORPUSCULAR VOLUME 69 fL (79-100); MONO # 1.3 x10^3/uL (0.0-1.1); MONO % 15 % (0-9); NEUT % 64 % (31-73); PLATELET COUNT 350 x10^3/uL (140-400); RED BLOOD COUNT 4.32 x10^6/uL (4.30-5.70); RED CELL DISTRIBUTION WIDTH 17.9 % (11.5-14.5); WHITE BLOOD COUNT 9.3 x10^3/uL (4.0-11.0)
[2017-05-25] MEDS: ASPIRIN ENTERIC COATED 325 MG TABLET.DR. PO ×2 (09:11)
[2017-05-25] MEDS: METOPROLOL TART IMMED RELEASE 25 MG TABLET. PO ×4 (09:12→21:19)
[2017-05-25] MEDS: FAMOTIDINE 20 MG TABLET. PO ×4 (09:12→21:18)
[2017-05-25] MEDS: POTASSIUM CHLORIDE 20 MEQ TABLET.ER. PO ×2 (09:12)
[2017-05-25] MEDS: oxyCODONE/APAP 5/325 1 TAB TABLET PO ×6 (09:13→21:24)
[2017-05-25] MEDS: FUROSEMIDE 20 MG/2 ML VIAL. IVP ×4 (09:15→16:00)
[2017-05-25 09:36] LABS: ALBUMIN 3.1 g/dL (3.4-5.0); ALBUMIN/GLOBULIN RATIO 0.9 (1.0-1.7); ALK PHOS 106 U/L (46-116); ALT (SGPT) 11 U/L (16-63); ANION GAP 4 (6-14); AST (SGOT) 10 U/L (15-37); BLOOD UREA NITROGEN 16 mg/dL (8-26); BUN/CREATININE RATIO 13 (6-20); CALCIUM 8.7 mg/dL (8.5-10.1); CARBON DIOXIDE 30 mmol/L (21-32); CHLORIDE 103 mmol/L (98-107); CREATININE 1.2 mg/dL (0.7-1.3); GFR 60.2; GLUCOSE 97 mg/dL (70-99); POTASSIUM 4.3 mmol/L (3.5-5.1); SODIUM 137 mmol/L (136-145); TOTAL BILIRUBIN 0.5 mg/dL (0.2-1.0); TOTAL PROTEIN 6.5 g/dL (6.4-8.2)
[2017-05-25] MEDS: ATORVASTATIN CALCIUM 40 MG TABLET. PO ×2 (21:18)
[2017-05-26 04:50] LABS: ADD MAN DIFF? NO
[2017-05-26 05:11] LABS: BASO # 0.1 x10^3/uL (0.0-0.2); BASO % 1 % (0-3); EOS # 0.8 x10^3/uL (0.0-0.7); EOS % 10 % (0-3); HEMATOCRIT 30.4 % (39.0-53.0); HEMOGLOBIN 9.3 g/dL (13.0-17.5); LYMPH # 1.6 x10^3/uL (1.0-4.8); LYMPH % 20 % (24-48); MEAN CORPUSCULAR HEMOGLOBIN 21 pg (25-35); MEAN CORPUSCULAR HGB CONC 31 g/dL (31-37); MEAN CORPUSCULAR VOLUME 70 fL (79-100); MONO # 1.2 x10^3/uL (0.0-1.1); MONO % 15 % (0-9); NEUT # 4.2 x10^3uL (1.8-7.7); NEUT % 54 % (31-73); PLATELET COUNT 333 x10^3/uL (140-400); RED BLOOD COUNT 4.35 x10^6/uL (4.30-5.70); RED CELL DISTRIBUTION WIDTH 17.5 % (11.5-14.5); WHITE BLOOD COUNT 7.8 x10^3/uL (4.0-11.0)
[2017-05-26 05:47] LABS: ANION GAP 10 (6-14); BLOOD UREA NITROGEN 17 mg/dL (8-26); CALCIUM 8.8 mg/dL (8.5-10.1); CARBON DIOXIDE 26 mmol/L (21-32); CHLORIDE 100 mmol/L (98-107); CREATININE 1.5 mg/dL (0.7-1.3); GFR 46.5; GLUCOSE 105 mg/dL (70-99); POTASSIUM 3.6 mmol/L (3.5-5.1); SODIUM 136 mmol/L (136-145)
[2017-05-26] MEDS: NAPROXEN 500 MG TABLET PO ×4 (08:44→21:50)
[2017-05-26] MEDS: ASPIRIN ENTERIC COATED 325 MG TABLET.DR. PO ×2 (08:44)
[2017-05-26] MEDS: FAMOTIDINE 20 MG TABLET. PO ×4 (08:44→21:50)
[2017-05-26] MEDS: METOPROLOL TART IMMED RELEASE 25 MG TABLET. PO ×4 (08:45→21:53)
[2017-05-26] MEDS: FUROSEMIDE 20 MG/2 ML VIAL. IVP ×4 (08:48→14:58)
[2017-05-26] MEDS: ATORVASTATIN CALCIUM 40 MG TABLET. PO ×2 (21:49)
[2017-05-26] MEDS: oxyCODONE/APAP 5/325 1 TAB TABLET PO ×2 (21:51)
[2017-05-27 04:29] LABS: ADD MAN DIFF? NO
[2017-05-27 04:46] LABS: BASO # 0.1 x10^3/uL (0.0-0.2); BASO % 1 % (0-3); EOS # 0.8 x10^3/uL (0.0-0.7); EOS % 10 % (0-3); HEMATOCRIT 29.9 % (39.0-53.0); HEMOGLOBIN 9.1 g/dL (13.0-17.5); LYMPH # 1.4 x10^3/uL (1.0-4.8); LYMPH % 17 % (24-48); MEAN CORPUSCULAR HEMOGLOBIN 21 pg (25-35); MEAN CORPUSCULAR HGB CONC 31 g/dL (31-37); MEAN CORPUSCULAR VOLUME 70 fL (79-100); MONO # 1.1 x10^3/uL (0.0-1.1); MONO % 14 % (0-9); NEUT # 4.7 x10^3uL (1.8-7.7); NEUT % 58 % (31-73); PLATELET COUNT 328 x10^3/uL (140-400); RED CELL DISTRIBUTION WIDTH 17.8 % (11.5-14.5); WHITE BLOOD COUNT 8.1 x10^3/uL (4.0-11.0)
[2017-05-27 04:50] LABS: ANION GAP 8 (6-14); BLOOD UREA NITROGEN 19 mg/dL (8-26); CALCIUM 9.1 mg/dL (8.5-10.1); CARBON DIOXIDE 30 mmol/L (21-32); CHLORIDE 101 mmol/L (98-107); CREATININE 1.4 mg/dL (0.7-1.3); GFR 50.4; GLUCOSE 111 mg/dL (70-99); POTASSIUM 3.4 mmol/L (3.5-5.1); SODIUM 139 mmol/L (136-145)
[2017-05-27] MEDS: NAPROXEN 500 MG TABLET PO ×2 (08:26)
[2017-05-27] MEDS: FAMOTIDINE 20 MG TABLET. PO ×2 (08:26)
[2017-05-27] MEDS: POTASSIUM CHLORIDE 20 MEQ TABLET.ER. PO ×2 (08:26)
[2017-05-27] MEDS: ASPIRIN ENTERIC COATED 325 MG TABLET.DR. PO ×2 (08:26)
[2017-05-27] MEDS: METOPROLOL TART IMMED RELEASE 25 MG TABLET. PO ×2 (08:26)
[2017-05-27] MEDS: FUROSEMIDE 20 MG/2 ML VIAL. IVP ×4 (08:27→14:06)
[2017-05-27] MEDS ORDERED: TALC 5 GM VIAL. IPL ×2 (10:30)
[2017-05-27] MEDS ORDERED: LIDOCAINE 1% IPL ×6 (10:30→11:00)
[2017-05-27] MEDS ORDERED: TOTAL VOLUME IPL ×6 (10:30→11:00)
[2017-05-27] MEDS ORDERED: TALC IPL ×6 (10:30→11:00)
[2017-05-27] MEDS: TOTAL VOLUME IPL ×4 (11:30)
[2017-05-27] MEDS: LIDOCAINE 1% IPL ×4 (11:30)
[2017-05-27] MEDS: TALC IPL ×4 (11:30)
[2017-05-28] MEDS ORDERED: FUROSEMIDE 20 MG TABLET PO ×2 (09:00)
== END 2017-05-27 16:55 | disposition home or self-care (01) | DRG 186 ==
LOC: ER 13:06 → 2 SOUTH 15:33
PROC: 0W9B30Z Drainage of Left Pleural Cavity with Drainage Device, Percutaneous Approach (ICD-10-PCS; 2017-05-21)
PROC: 3E0L3GC Introduction of Other Therapeutic Substance into Pleural Cavity, Percutaneous Approach (ICD-10-PCS; principal; 2017-05-27)
DX: J90 Pleural effusion, not elsewhere classified (principal); J96.00 Acute respiratory failure, unspecified whether with hypoxia or hypercapnia; I50.9 Heart failure, unspecified; I13.0 Hypertensive heart and chronic kidney disease with heart failure and stage 1 through stage 4 chronic kidney disease, or unspecified chronic kidney disease; I42.9 Cardiomyopathy, unspecified; D50.9 Iron deficiency anemia, unspecified; E11.22 Type 2 diabetes mellitus with diabetic chronic kidney disease; E78.5 Hyperlipidemia, unspecified; Z96.649 Presence of unspecified artificial hip joint; I25.10 Atherosclerotic heart disease of native coronary artery without angina pectoris; K59.00 Constipation, unspecified; M19.90 Unspecified osteoarthritis, unspecified site; N18.9 Chronic kidney disease, unspecified; Z88.8 Allergy status to other drugs, medicaments and biological substances; Z87.891 Personal history of nicotine dependence; Z95.1 Presence of aortocoronary bypass graft
CPT/HCPCS: 36415; 71045; 71046; 71250; 80048; 80053; 82728; 83540; 83550; 83880; 84484; 85025; 93005; 93971; 94640; 94760; 96374; 97161-GP; 97165-GO; 99285; 99285-25; J1756; J1940; J7050; J7620

== ENCOUNTER 2017-05-27 23:41 | Emergency (ER) | payer MEDICARE ==
[2017-05-28] MEDS: ONDANSETRON PF 4 MG/2 ML VIAL. IV ×2 (00:03)
[2017-05-28 00:19] LABS: ANION GAP 8 (6-14); BLOOD UREA NITROGEN 25 mg/dL (8-26); BUN/CREATININE RATIO 15 (6-20); CALCIUM 8.9 mg/dL (8.5-10.1); CARBON DIOXIDE 27 mmol/L (21-32); CHLORIDE 98 mmol/L (98-107); CREATININE 1.7 mg/dL (0.7-1.3); GFR 40.3; GLUCOSE 144 mg/dL (70-99); SODIUM 133 mmol/L (136-145)
[2017-05-28 00:21] LABS: ADD MAN DIFF? YES; BASO # 0.1 x10^3/uL (0.0-0.2); BASO % 0 % (0-3); EOS # 0.3 x10^3/uL (0.0-0.7); EOS % 2 % (0-3); HEMATOCRIT 31.1 % (39.0-53.0); HEMOGLOBIN 9.4 g/dL (13.0-17.5); LYMPH # 0.7 x10^3/uL (1.0-4.8); LYMPH % 5 % (24-48); MEAN CORPUSCULAR HEMOGLOBIN 21 pg (25-35); MEAN CORPUSCULAR HGB CONC 30 g/dL (31-37); MEAN CORPUSCULAR VOLUME 69 fL (79-100); MONO # 1.4 x10^3/uL (0.0-1.1); MONO % 10 % (0-9); NEUT # 11.3 x10^3uL (1.8-7.7); NEUT % 82 % (31-73); PLATELET COUNT 387 x10^3/uL (140-400); RED BLOOD COUNT 4.52 x10^6/uL (4.30-5.70); RED CELL DISTRIBUTION WIDTH 17.6 % (11.5-14.5); WHITE BLOOD COUNT 13.8 x10^3/uL (4.0-11.0)
[2017-05-28 00:25] LABS: ALBUMIN 3.1 g/dL (3.4-5.0); ALBUMIN/GLOBULIN RATIO 0.8 (1.0-1.7); ALK PHOS 106 U/L (46-116); ALT (SGPT) 12 U/L (16-63); AST (SGOT) 15 U/L (15-37); TOTAL BILIRUBIN 0.9 mg/dL (0.2-1.0); TOTAL PROTEIN 6.9 g/dL (6.4-8.2)
[2017-05-28 00:31] LABS: TROPONINI < 0.017 ng/mL (0.000-0.055)
[2017-05-28 00:38] LABS: INFLUENZA A PATIENT NEGATIVE (NEGATIVE); INFLUENZA B PATIENT NEGATIVE (NEGATIVE); OBC FLU VALID
[2017-05-28 00:55] LABS: % BANDS 2 % (0-9); % BASOS 2 % (0-3); % EOS 3 % (0-5); % LYMPHS 5 % (24-48); % MONOS 5 % (0-10); % SEGS 83 % (35-66); ANISOCYTOSIS SLIGHT; HYPOCHROMIA MARKED; MICROCYTOSIS MARKED; OVALOCYTES MOD; PLT ESTIMATE ADEQUATE (ADEQUATE); POIKILOCYTOSIS MOD
[2017-05-28] MEDS: IV NORMAL SALINE 500ML BAG 500 ML IV ×4 (00:58→01:53)
== END 2017-05-28 02:41 | disposition home or self-care (01) ==
LOC: ER 23:41
DX: R11.2 Nausea with vomiting, unspecified (principal); E86.0 Dehydration; D72.829 Elevated white blood cell count, unspecified; I10 Essential (primary) hypertension; I95.9 Hypotension, unspecified; Z95.1 Presence of aortocoronary bypass graft; Z88.5 Allergy status to narcotic agent
CPT/HCPCS: 36415; 71045; 80053; 84484; 85007; 85025; 87804; 87804-59; 93005; 96361; 96374; 99285-25; J2405; J7040

== ENCOUNTER → 2017-06-11 | Outpatient (CLI) | payer MEDICARE | END | disposition home or self-care (01) | LOC: RAD 11:56 | DX: J90 Pleural effusion, not elsewhere classified (principal); M47.894 Other spondylosis, thoracic region; R91.8 Other nonspecific abnormal finding of lung field; Z95.1 Presence of aortocoronary bypass graft | CPT/HCPCS: 71046 ==

== ENCOUNTER 2017-06-16 12:59 | Emergency (ER) | payer MEDICARE ==
[2017-06-16 13:33] LABS: ADD MAN DIFF? NO
[2017-06-16] MEDS: ONDANSETRON PF 4 MG/2 ML VIAL. IV ×2 (13:38)
[2017-06-16] MEDS: IV NORMAL SALINE 1000ML BAG 1,000 ML IV ×2 (13:38)
[2017-06-16 13:47] LABS: ANION GAP 10 (6-14); BLOOD UREA NITROGEN 19 mg/dL (8-26); BUN/CREATININE RATIO 14 (6-20); CALCIUM 8.9 mg/dL (8.5-10.1); CARBON DIOXIDE 27 mmol/L (21-32); CHLORIDE 101 mmol/L (98-107); CREATININE 1.4 mg/dL (0.7-1.3); GFR 50.4; GLUCOSE 147 mg/dL (70-99); POTASSIUM 3.4 mmol/L (3.5-5.1); SODIUM 138 mmol/L (136-145)
[2017-06-16 13:55] LABS: BASO # 0.1 x10^3/uL (0.0-0.2); BASO % 1 % (0-3); EOS # 0.4 x10^3/uL (0.0-0.7); EOS % 4 % (0-3); HEMATOCRIT 30.4 % (39.0-53.0); HEMOGLOBIN 9.4 g/dL (13.0-17.5); LYMPH # 0.7 x10^3/uL (1.0-4.8); LYMPH % 6 % (24-48); MEAN CORPUSCULAR HEMOGLOBIN 22 pg (25-35); MEAN CORPUSCULAR HGB CONC 31 g/dL (31-37); MEAN CORPUSCULAR VOLUME 70 fL (79-100); MONO % 9 % (0-9); NEUT # 8.8 x10^3uL (1.8-7.7); NEUT % 81 % (31-73); PLATELET COUNT 459 x10^3/uL (140-400); RED BLOOD COUNT 4.37 x10^6/uL (4.30-5.70); RED CELL DISTRIBUTION WIDTH 21.3 % (11.5-14.5); WHITE BLOOD COUNT 10.9 x10^3/uL (4.0-11.0)
[2017-06-16 13:58] LABS: ALBUMIN 3.2 g/dL (3.4-5.0); ALBUMIN/GLOBULIN RATIO 0.7 (1.0-1.7); ALK PHOS 113 U/L (46-116); ALT (SGPT) 25 U/L (16-63); AST (SGOT) 24 U/L (15-37); TOTAL BILIRUBIN 0.3 mg/dL (0.2-1.0); TOTAL PROTEIN 7.7 g/dL (6.4-8.2)
[2017-06-16 14:53] LABS: LACTIC ACID 2.1 mmol/L (0.4-2.0)
[2017-06-16 15:25] LABS: ANISOCYTOSIS MOD; HYPOCHROMIA MOD; MICROCYTOSIS MARKED; OVALOCYTES FEW; PLT ESTIMATE INCREASED (ADEQUATE); POLYCHROMASIA SLIGHT; SCHISTOCYTES OCC
[2017-06-16 15:26] LABS: TOXIC GRANULATION SLIGHT
== END 2017-06-16 16:01 | disposition home or self-care (01) ==
LOC: ER 12:59
DX: R11.2 Nausea with vomiting, unspecified (principal); R19.7 Diarrhea, unspecified; I12.9 Hypertensive chronic kidney disease with stage 1 through stage 4 chronic kidney disease, or unspecified chronic kidney disease; N18.9 Chronic kidney disease, unspecified; Z95.1 Presence of aortocoronary bypass graft; Z88.5 Allergy status to narcotic agent
CPT/HCPCS: 36415; 80053; 83605; 85025; 93005; 96361; 96374; 99285-25; J2405; J7030

== ENCOUNTER → 2017-09-22 | Outpatient (CLI) | payer MEDICARE ==
[~2017-09-22] MED LIST changes: -ASPI-630 PO; -ASPI325T11 PO; -ATOR40TA59 PO; -FAMO20TA5 PO; +LIDOCAINE WITH 8.4% SOD BICARB 3 ML DISP.SYRIN.; -LISI-334 PO; -METO25TA4 PO; -NAPR-683 PO; -OXYC-323 PO; -OXYC1TAB7 PO
[2017-09-22 07:31] LABS: ADD MAN DIFF? NO
[2017-09-22 07:39] LABS: BASO # 0.1 x10^3/uL (0.0-0.2); BASO % 2 % (0-3); EOS # 0.5 x10^3/uL (0.0-0.7); EOS % 7 % (0-3); HEMATOCRIT 33.2 % (39.0-53.0); HEMOGLOBIN 10.8 g/dL (13.0-17.5); LYMPH # 1.4 x10^3/uL (1.0-4.8); LYMPH % 18 % (24-48); MEAN CORPUSCULAR HEMOGLOBIN 23 pg (25-35); MEAN CORPUSCULAR HGB CONC 33 g/dL (31-37); MEAN CORPUSCULAR VOLUME 72 fL (79-100); MONO # 0.8 x10^3/uL (0.0-1.1); MONO % 11 % (0-9); NEUT # 4.9 x10^3uL (1.8-7.7); NEUT % 63 % (31-73); PLATELET COUNT 283 x10^3/uL (140-400); RED BLOOD COUNT 4.64 x10^6/uL (4.30-5.70); RED CELL DISTRIBUTION WIDTH 16.9 % (11.5-14.5); WHITE BLOOD COUNT 7.7 x10^3/uL (4.0-11.0)
[2017-09-22 07:48] LABS: INR 1.1 (0.8-1.1); PROTHROMBIN TIME PATIENT 13.7 SEC (11.7-14.0)
== END ==
LOC: INTRAD 07:05
DX: J90 Pleural effusion, not elsewhere classified (principal); I25.2 Old myocardial infarction; I25.10 Atherosclerotic heart disease of native coronary artery without angina pectoris; E78.00 Pure hypercholesterolemia, unspecified; M19.90 Unspecified osteoarthritis, unspecified site; F32.9 Major depressive disorder, single episode, unspecified; F41.9 Anxiety disorder, unspecified; N18.9 Chronic kidney disease, unspecified; I42.9 Cardiomyopathy, unspecified; E78.5 Hyperlipidemia, unspecified; D50.9 Iron deficiency anemia, unspecified; I12.9 Hypertensive chronic kidney disease with stage 1 through stage 4 chronic kidney disease, or unspecified chronic kidney disease; Z98.890 Other specified postprocedural states; Z86.711 Personal history of pulmonary embolism; Z96.642 Presence of left artificial hip joint; Z95.1 Presence of aortocoronary bypass graft; Z82.49 Family history of ischemic heart disease and other diseases of the circulatory system; Z98.42 Cataract extraction status, left eye; Z88.8 Allergy status to other drugs, medicaments and biological substances; Z87.891 Personal history of nicotine dependence
CPT/HCPCS: 32555; 36415; 85025; 85610

== ENCOUNTER → 2017-12-22 | Outpatient (CLI) | payer MEDICARE ==
[2017-10-10 11:00] VITALS: BP 124/66
[~2017-12-22] MED LIST changes: +ASPI-630 PO; +ASPI325T11 PO; +ATOR20TA58 PO; +ATOR40TA59 PO; +CONTRAST GIVEN. MC PRN; +DOXY100C14 PO; +FAMO20TA5 PO; +FURO20TA3 PO; +FURO40TA4 PO; +IOHEXOL 240 MG/ML 50ML VIAL. PO ONE; -LIDOCAINE WITH 8.4% SOD BICARB 3 ML DISP.SYRIN.; +LISI-334 PO; +METO25TA4 PO; +NAPR-683 PO; +OXYC-323 PO; +OXYC1TAB7 PO; +POTA10TA12 PO; +PROM12.56 PO; +SULF1TAB24 PO; +TAMS0.4C97 PO
[2017-12-22 15:27] LABS: CREATININE 2.2 mg/dL (0.7-1.3); GFR 29.8
--- NOTE | 2017-12-22 16:37 | RAD ---
CT abdomen pelvis Indication: Constipation, suprapubic pain Technique: Noncontrast CT imaging was performed of the abdomen and pelvis, multiplanar reconstruction images submitted. Oral contrast was given. One or more of the following individualized dose reduction techniques were utilized for this examination: 1. Automated exposure control 2. Adjustment of the mA and/or kV according to patient size 3. Use of iterative reconstruction technique. Comparison: October 07, 2017 Findings: There has been a median sternotomy. There is linear fibrotic change of the left lower lobe as seen previously. Evaluation of the abdominal visceral organs is limited without intravenous contrast, no new obvious focal abnormality of the liver, spleen, pancreas. There is again small right adrenal nodule up to about 1.4 cm likely adenoma. There are some similar small nonspecific nodes of the lee hepatis and portacaval region. There is no renal calculus or hydronephrosis is. Bowel is not significantly dilated. The appendix caliber is within normal limits about 0.6 cm. There is no free air or free fluid. There is urinary bladder wall thickening. There is prostatomegaly. There is some hazy and strandy change of the fat superior to the urinary bladder, not localized about the bowel. There is multilevel lumbar facet degenerative change. There is likely at least moderate spinal stenosis L4-5. There is again irregularity of the right iliac bone, also severe degenerative change of the right hip with prominent subchondral cyst formation. There is a similar degree of flattening of the right femoral head. There is left hip arthroplasty. IMPRESSION: 1. There is urinary bladder wall thickening, also adjacent mild hazy density superiorly of the fat. Findings may be due to cystitis. There is again prostatomegaly. 2. There is no evidence of bowel obstruction. 3. There is again severe osteoarthritic change of the right hip with prominent subchondral cyst formation. 4. There is right adrenal adenoma. Electronically signed by: David Wang MD (12/22/2017 4:34 PM) [id number]
== END | disposition home or self-care (01) ==
LOC: CT 14:39
PROVIDERS: ATTEND Family Medicine
DX: D35.01 Benign neoplasm of right adrenal gland (principal); K59.00 Constipation, unspecified; M16.11 Unilateral primary osteoarthritis, right hip; M25.861 Other specified joint disorders, right knee; R63.0 Anorexia; I13.0 Hypertensive heart and chronic kidney disease with heart failure and stage 1 through stage 4 chronic kidney disease, or unspecified chronic kidney disease; N18.9 Chronic kidney disease, unspecified; I50.9 Heart failure, unspecified; E78.00 Pure hypercholesterolemia, unspecified; I25.10 Atherosclerotic heart disease of native coronary artery without angina pectoris; Z96.642 Presence of left artificial hip joint; Z87.891 Personal history of nicotine dependence
CPT/HCPCS: 36415; 74176; 82565; Q9966

== ENCOUNTER → 2018-03-22 | Outpatient (CLI) | payer MEDICARE ==
[2017-10-10 11:00] VITALS: BP 124/66
[~2018-03-22] MED LIST changes: -CONTRAST GIVEN. MC PRN; +FERR325T3 PO; -IOHEXOL 240 MG/ML 50ML VIAL. PO ONE; -OXYC-323 PO; +OXYC1TAB15 PO
--- NOTE | 2018-03-22 13:50 | EKG ---
[facility] [address] [place] [address] Test Date: 2018-03-22 Test Time: 13:58:27 Pat Name: ZAIDA ELDER Department: Room: Gender: M Phys Assistant: TV : 1950 Requested By: DOE KEY Order Number: [id number] Reading MD: Dany Peterson Measurements Intervals [place] Rate: 73 P: 29 CA: 172 QRS: 19 QRSD: 90 T: 56 QT: 382 QTc: 424 Interpretive Statements SINUS RHYTHM VENTRICULAR PREMATURE COMPLEX(ES) ABNORMAL ECG RI6.01 Compared to ECG 10/07/2017 08:09:45 Sinus tachycardia no longer present Electronically Signed On 03-23-2018 9:44:40 [employer] OPER[employer] by Dany Peterson
[2018-03-22 15:04] LABS: BASO # 0.1 x10^3/uL (0.0-0.2); BASO % 1 % (0-3); EOS # 0.6 x10^3/uL (0.0-0.7); EOS % 8 % (0-3); HEMATOCRIT 42.8 % (39.0-53.0); HEMOGLOBIN 14.5 g/dL (13.0-17.5); LYMPH # 1.7 x10^3/uL (1.0-4.8); LYMPH % 22 % (24-48); MEAN CORPUSCULAR HEMOGLOBIN 29 pg (25-35); MEAN CORPUSCULAR HGB CONC 34 g/dL (31-37); MEAN CORPUSCULAR VOLUME 84 fL (79-100); MONO # 0.8 x10^3/uL (0.0-1.1); MONO % 11 % (0-9); NEUT # 4.4 x10^3uL (1.8-7.7); NEUT % 58 % (31-73); PLATELET COUNT 235 x10^3/uL (140-400); RED BLOOD COUNT 5.09 x10^6/uL (4.30-5.70); RED CELL DISTRIBUTION WIDTH 20.7 % (11.5-14.5); WHITE BLOOD COUNT 7.7 x10^3/uL (4.0-11.0)
[2018-03-22 15:15] LABS: BILIRUBIN,URINE NEGATIVE (NEG); CLARITY,URINE CLEAR; COLOR,URINE YELLOW; NITRITE,URINE NEGATIVE (NEG); PH,URINE 5.5; PROTEIN,URINE NEGATIVE (NEG-TRACE); PROTHROMBIN TIME PATIENT 13.3 SEC (11.7-14.0); UROBILINOGEN,URINE 0.2 mg/dL (0.2 mg/dL)
[2018-03-22 15:28] LABS: BACTERIA,URINE MANY /HPF (0-FEW); RBC,URINE OCC /HPF (0-2); SQUAMOUS EPITHELIAL CELL,UR MANY /LPF; WBC,URINE 20-40 /HPF (0-4)
[2018-03-22 15:29] LABS: CALCIUM 9.1 mg/dL (8.5-10.1); CREATININE 1.6 mg/dL (0.7-1.3); GFR 43.1; POTASSIUM 3.6 mmol/L (3.5-5.1)
[2018-03-22 15:32] LABS: PLT ESTIMATE ADEQUATE (ADEQUATE)
[2018-03-22 15:33] LABS: ANISOCYTOSIS SLIGHT
--- NOTE | 2018-03-22 15:42 | RAD ---
EXAM: Chest, 2 views. HISTORY: Preoperative evaluation. Pain. COMPARISON: 06/11/2017 FINDINGS: 2 views of the chest are obtained. There is no infiltrate, pleural effusion or pneumothorax. There is suspected left infrahilar atelectasis or scarring. There is evidence of prior median sternotomy and coronary artery bypass grafting. There is hyperinflation of the left lung. IMPRESSION: No acute pulmonary finding. Electronically signed by: Mae Frias MD (03/22/2018 3:39 PM) [id number]
== END | disposition home or self-care (01) ==
LOC: SURGPAT 13:12
PROVIDERS: ATTEND Orthopaedic Surgery Sports Medicine
DX: Z01.818 Encounter for other preprocedural examination (principal); R94.31 Abnormal electrocardiogram [ECG] [EKG]; R07.89 Other chest pain
CPT/HCPCS: 36415; 71046; 80048; 81001; 82040; 85025; 85610; 85651; 85730; 87086; 87641; 93005

== ENCOUNTER → 2018-06-17 | Outpatient (CLI) | payer MEDICARE ==
[2018-04-05 08:12] VITALS: BP 112/67
[~2018-06-17] MED LIST changes: -PROM12.56 PO; +PROM12.58 PO; +TRAM50TA PO; +WARF4TAB64 PO
--- NOTE | 2018-06-17 10:56 | CARD ---
MR#: [id number] Date of Study: 06/17/2018 Ordering Physician: NAOMI MINER, Referring Physician: NAOMI MINER, Tech: Radha Mclaughlin [facility] APPROVED REPORT EXAM: Two-dimensional and M-mode echocardiogram with Doppler and color Doppler. Other Information Quality : AverageHR: 75bpm Rhythm : NSRTechnically limited study due to lung disease and CABG. INDICATION CAD Surgery/Intervention CABG: Date: 02/2017 2D DIMENSIONS RVDd4.6 (2.9-3.5cm)Left Atrium(2D)5.0 (1.6-4.0cm) IVSd1.1 (0.7-1.1cm)Aortic Root(2D)3.4 (2.0-3.7cm) LVDd5.8 (3.9-5.9cm)LVOT Diameter2.4 (1.8-2.4cm) PWd1.3 (0.7-1.1cm)LVDs5.1 (2.5-4.0cm) FS (%) 12.6 %SV45.4 ml M-Mode DIMENSIONS Left Atrium(MM)5.36 (2.5-4.0cm)Aortic Root3.30 (2.2-3.7cm) Aortic Valve AoV Peak Rohan.91.8cm/sAoV VTI19.4cm AO Peak GR.3.4mmHgLVOT Peak Rohan.73.2cm/s AO Mean GR.2mmHgAVA (VMAX)3.75cm2 ADOLPH (VTI)3.20cm2 Mitral Valve MV E Xgkpmnpg66.4cm/sMV DECEL HIWL003ss MV A Ahljkfhp73.2cm/sE/A Ratio0.6 MV A Tfofhfqt300xo Pulmonary Valve PV Peak Isvxduuw44.4cm/s Pulmonary Vein S1 Grzsemit51.7cm/sD2 Gqmwnzzn65.0cm/s PVa wzvgdxsr76yrnq LEFT VENTRICLE The Left Ventricle is borderline dilated. There is borderline to mild concentric left ventricular hyp ertrophy. The left ventricular systolic function is mildly impaired. The Ejection Fraction is 40-45%. Abnormal septal motion probably from post-op (CABG) state. Transmitral Doppler flow pattern is Grade I-abnormal relaxation pattern. RIGHT VENTRICLE The right ventricle is mildly dilated. There is normal right ventricular wall thickness. Systolic fun ction is mildly reduced. ATRIA The left atrium is moderately dilated. The right atrium size is normal. The interatrial septum is int act with no evidence for an atrial septal defect or patent foramen ovale as noted on 2-D or Doppler i maging. AORTIC VALVE The aortic valve is normal in structure and function. The aortic valve is trileaflet. Doppler and Col or Flow revealed no significant aortic regurgitation. There is no significant aortic valvular stenosi s. MITRAL VALVE The mitral valve is normal in structure and function. There is no evidence of mitral valve prolapse. There is no mitral valve stenosis. Doppler and Color-flow revealed mild to moderate mitral regurgitat ion. TRICUSPID VALVE The tricuspid valve is normal in structure and function. Doppler and Color Flow revealed no tricuspid valve regurgitation noted. There is no tricuspid valve prolapse or vegetation. There is no tricuspid valve stenosis. PULMONIC VALVE Pulmonic valve not well visualized. GREAT VESSELS The aortic root is normal in size. The ascending aorta is normal in size. PERICARDIAL EFFUSION There is no evidence of significant pericardial effusion. Critical Notification Critical Value: No <Conclusion> The left ventricular systolic function is mildly impaired. The Ejection Fraction is 40-45%. Abnormal septal motion probably from post-op (CABG) state. Transmitral Doppler flow pattern is Grade I-abnormal relaxation pattern. The left atrium is moderately dilated. Mild to moderate mitral regurgitation. There is no evidence of significant pericardial effusion. Signed by : Robin Victor, Electronically Approved : 06/17/2018 10:55:29
== END | disposition home or self-care (01) ==
LOC: ECHO 09:09
PROVIDERS: ATTEND Internal Medicine Cardiovascular Disease
DX: I34.0 Nonrheumatic mitral (valve) insufficiency (principal); I25.10 Atherosclerotic heart disease of native coronary artery without angina pectoris; R00.8 Other abnormalities of heart beat
CPT/HCPCS: 93306

== ENCOUNTER → 2018-12-05 | Outpatient (CLI) | payer MEDICARE ==
[2018-04-05 08:12] VITALS: BP 112/67
--- NOTE | 2018-12-05 14:20 | RAD ---
MR#: [id number] Date of Study: 12/05/2018 Ordering Physician: NAOMI MINER, Referring Physician: NAOMI MINER, Tech: IDALIA Mcguire, RDMS, RVT APPROVED REPORT Patient Location: OUT-PATIENT Laterality:Bilateral Risk Factors Hypertension: PAD Doppler Spectral Velocity Analysis Right Left pCCA 104/18 cm/spCCA 90/14 cm/s mCCA 86/15 cm/smCCA 91/16 cm/s dCCA 81/12 cm/sdCCA 77/15 cm/s ECA 119/ cm/sECA 100/ cm/s pICA 64/16 cm/spICA 44/13 cm/s Tangela 64/15 cm/smICA 55/18 cm/s dICA 68/20 cm/sdICA 60/18 cm/s ICA/CCA 0.65ICA/CCA 0.67 Findings Grayscale images of the bilateral common carotid, external and internal carotid vessels reveals mild plaque. No obvious significant objective disease is noted. Spectral waveforms and color Doppler are within normal limits. Normal ICA to CCA ratios bilaterally. Normal vertebral antegrade flow is noted. Critical Notification Critical Value: No <Conclusion> No significant carotid occlusive disease bilaterally. Signed by : Naomi Miner, Electronically Approved : 12/05/2018 14:20:45
== END | disposition home or self-care (01) ==
LOC: US 15:33
PROVIDERS: ATTEND Internal Medicine Cardiovascular Disease
DX: I65.23 Occlusion and stenosis of bilateral carotid arteries (principal); I10 Essential (primary) hypertension
CPT/HCPCS: 93880

== ENCOUNTER → 2019-05-01 | Outpatient (CLI) | payer MEDICARE ==
[2018-12-23 15:00] VITALS: BP 123/59
[2019-05-01] MEDS: REGADENOSON 0.4 MG/5 ML DISP.SYRIN. IV ONE (08:45)
--- NOTE | 2019-05-01 12:04 | RAD ---
MR#: [id number] Date of Study: 05/01/2019 Ordering Physician: NAOMI MINER, Referring Physician: MEREDITH BIRMINGH[place] Tech: CAROLE Vargas, ROLA (R) (N) APPROVED REPORT Test Type: Pharmacological Stress Nurse/Tech: Salena Baron RN Test Indications: Ischemic Cardiomyopathy Cardiac History: Triple bypass 2017 Medications: See Electronic Medical Record Medical History: See Electronic Medical Record Resting ECG: SR Resting Heart Rate: 71 bpm Resting Blood Pressure: 118/61mmHg Pretest Chest Pain: No chest pain Nurse/Tech Notes S1,S2 irregular and lungs clear to auscultation. Consent: The procedure was explained to the patient in lay terms. Informed consent was witnessed. Gage eout was entered into [email or web address]. History and Stress Test performed by RT Kurt GaminoR) (N) Pharm. Details Pharmacologic stress testing was performed using 0.4mg per 5ml of regadenoson given intravenously ove r 7-10 seconds. Stress Symptoms No chest pain or symptoms. POST EXERCISE Reason for Termination: Infusion complete Target HR: No Max HR: 113 bpm 88% of Maximum Predicted HR: 127 bpm Max Blood Pressure: 124/63mmHg Blood Pressure response to exercise: Normal blood pressure response during stress. Heart Rate response to exercise: WNL Chest Pain: No. Arrhythmia: Yes. PVCs ST Change: No. INTERPRETATION Stress EKG Conclusion: Baseline EKG showed sinus rhythm. No ischemic changes at peak stress. No arr hythmias. Imaging Protocol IMAGE PROTOCOL: Rest Tc-99m/stress Tc-99m 1 day Rest: Stress: Viability: Radiopharm.Tc99m MgmzifzhoWl85m Sestamibi Yyxu60qCt 34mCi Img Date 05/01/2019 05/01/2019 Inj-Img Ffxr52gdj. 60min. Rest Admin Site:IV - Left ForearmAdministrator:CAROLE Vargas, ARRT (R)(N) Stress Admin Site: IV - Left ForearmAdministrator: RT Filiberto Gamino)(N) STRESS DATA End Diast. Vol.144.0mlAv. Heart Rate80.0bpm End Syst. Vol.72.0mlCO Index BSA0.0L/min Myocardial Xjxm665.0gEject. Kcgupvvw09.0% Stress Rates Pk. Fill Rate2.53EDV/secLVtime Pk. Fill 71.09msec Pk. Empty Rate2.54ESV/secLVtime Pk. Oplal920.59msec 1/3 Pk. Fill1.78EDV/sec Stress Scores Regional WT3.00Summed WT14.00 Regional WM2.00Summed WM29.00 LV Perfusion scintigraphic images showed large predominantly fixed defect involving the lateral wall and extending into the anterolateral and inferolateral patterson consistent with previous myocardial infarction with s mall amount of reversibility consistent with lorelei-infarct ischemia. Wall Motion Abnormal septal wall motion probably from postoperative state. The ejection fraction was calculated a t 50%. LV Perf. Quant 17 Seg. SSS25.00 17 Seg. SRS19.00 17 Seg. SDS7.00 Stress Defect Extent (% LAD)19.40Rest Defect Extent (% LAD)1.90Rev. Defect Extent (% LAD)18.80 Stress Defect Extent (% LCX) 95.00Rest Defect Extent (% LCX)97.50Rev. Defect Extent (% LCX)33.80 Stress Defect Extent (% RCA)25.60Rest Defect Extent (% RCA)5.60Rev. Defect Extent (% RCA)0.00 Stress Defect Extent (% KENDALL)42.40Rest Defect Extent (% KENDALL)28.70Rev. Defect Extent (% KENDALL)21.50 Conclusion 1. Regadenoson cardioisotope stress test showed large infarct involving the lateral wall and extendin g into the anterolateral and inferolateral patterson with small amount of lorelei-infarct ischemia. 2. Abnormal septal wall motion probably from postoperative state. The ejection fraction was calculate d at 50%. 3. Low to intermediate risk for cardiac events. Signed by : Robin Victor, Electronically Approved : 05/01/2019 12:04:02
== END | disposition home or self-care (01) ==
LOC: NM 07:35
PROVIDERS: ATTEND Internal Medicine Cardiovascular Disease
DX: I49.3 Ventricular premature depolarization (principal); I25.5 Ischemic cardiomyopathy; I25.2 Old myocardial infarction
CPT/HCPCS: 78452; 93017; A9500; J2785

== ENCOUNTER → 2019-12-05 | Outpatient (CLI) | payer MEDICARE ==
[2018-12-23 15:00] VITALS: BP 123/59
--- NOTE | 2019-12-05 16:45 | KCIC ---
Bilateral renal ultrasound without comparison for acute kidney failure. TECHNIQUE AND FINDINGS: Real-time grayscale and color Doppler evaluation of the kidneys and urinary bladder is performed. The right kidney measures 9.5 x 5.0 x 4.7 cm and the left measures 9.2 x 5.0 x 4.9 cm. There is no hydronephrosis or parenchymal abnormality involving either kidney. There is normal color flow to both kidneys. The urinary bladder is fluid distended and grossly unremarkable. Bilateral ureteral jets are present. Prostate is mildly enlarged measuring 4.4 x 3.6 x 3.9 cm. There is a significant post void residual bladder volume of 244.5 mL. IMPRESSION: 1. No sonographic abnormality of the kidneys or urinary bladder. 2. Significant post void residual of 244.5 mL. Electronically signed by: Shankar Carolina MD (12/05/2019 4:42 PM) [id number]
== END | disposition home or self-care (01) ==
LOC: KCIC US 15:20
PROVIDERS: ATTEND Internal Medicine Nephrology
DX: N40.0 Benign prostatic hyperplasia without lower urinary tract symptoms (principal); N17.9 Acute kidney failure, unspecified; N32.89 Other specified disorders of bladder
CPT/HCPCS: 76770

== ENCOUNTER 2020-11-07 14:30 | Emergency (ER) | payer MEDICARE ==
[~2020-11-07] VITALS: Ht 177.8 cm; Wt 95.0 kg
[~2020-11-07 14:30] MED LIST changes: +DOXY-181 PO; -DOXY100C14 PO; -LISI-334 PO; +LISI20TA18 PO
[2020-11-07] MEDS ORDERED: CYCL10TA2 PO (15:26)
[2020-11-07] MEDS ORDERED: HYDR-2761 PO (15:26)
--- NOTE | 2020-11-07 15:26 | PHYS DOC ---
Past Medical History Past Medical History: CAD, CHF, Hypertension, Renal Disease Additional Past Medical Histor: plural effusion w ct (04/2017) Past Surgical History: Coronary Bypass Surgery, Hip Replacement Additional Past Surgical Histo: CABG X 3 03/12, HERNIA, CATARACT SURGERY R EYE Smoking Status: Former Smoker Alcohol Use: None Drug Use: None General Adult EDM: Chief Complaint: BACK PAIN OR INJURY HPI: HPI: Patient is a 69 year old male with a history of CHF, hypertension, kidney disease, who presents the ED today complaining of mild intermittent bilateral low back pain that has been going on since yesterday. States pain is worse on ambulation. Patient states he has previous low back injury. He states he tried taking Tylenol with no relief. Patient denies any new injuries. Denies any pain radiating to bilateral lower extremities. Denies any loss of bowel/bladder function. Describes the pain as sharp. Patient denies any loss of bowel/bladder function. Review of Systems: Review of Systems: Constitutional: Denies fever or chills. [] GI: Denies abdominal pain, nausea, vomiting, bloody stools or diarrhea. [] : Denies dysuria. [] Musculoskeletal: Reports bilateral low back pain Integument: Denies rash. [] Neurologic: Denies headache, focal weakness or sensory changes. [] Endocrine: Denies polyuria or polydipsia. [] Lymphatic: Denies swollen glands. [] Psychiatric: Denies depression or anxiety. [] Heart Score: C/O Chest Pain: N/A Risk Factors: Risk Factors: DM, Current or recent (<one month) smoker, HTN, HLP, family history of CAD, obesity. Risk Scores: Score 0 - 3: 2.5% MACE over next 6 weeks - Discharge Home Score 4 - 6: 20.3% MACE over next 6 weeks - Admit for Clinical Observation Score 7 - 10: 72.7% MACE over next 6 weeks - Early Invasive Strategies Allergies: Allergies: Allergies Coded Allergies Type Severity Reaction Last Updated Verified codeine Adverse Reaction Mild Nausea and Vomiting 03/22/18 Yes Physical Exam: PE: Constitutional: Well developed, well nourished, no acute distress, non-toxic appearance. [] Skin: Warm, dry, no erythema, no rash. [] Back: Diffuse paraspinal muscle tenderness bilateral lumbar spine, no midline lumbar spine tenderness, no CVA tenderness. [] Extremities: No tenderness, no cyanosis, no clubbing, ROM intact, no edema. [] Neurologic: Alert and oriented X 3, normal motor function, normal sensory function, no focal deficits noted. [] Psychologic: Affect normal, judgement normal, mood normal. [] Current Patient Data: Vital Signs: Vital Signs Date Time Temp Pulse Resp B/P (MAP) Pulse Ox O2 Delivery O2 Flow Rate FiO2 11/07/20 15:10 98.4 99 18 141/70 (80) 97 Room Air 98.4 EKG: EKG: [] Radiology/Procedures: Radiology/Procedures: [] Course & Med Decision Making: Course & Med Decision Making Pertinent Labs and Imaging studies reviewed. (See chart for details) This is a 69-year-old male patient presented to the ED today with exacerbation of chronic low back pain. No known injury. Discharge to home. Follow-up with PCP. Rx for hydrocodone and Flexeril provided. Unable to take naproxen due to kidney disease as well as cardiac issues Dragon Disclaimer: Poly Disclaimer: This electronic medical record was generated, in whole or in part, using a voice recognition dictation system. Departure Departure Impression: Primary Impression: Back pain Qualified Codes: M54.5 - Low back pain; G89.29 - Other chronic pain Disposition: 01 HOME / SELF CARE / HOMELESS Condition: STABLE Referrals: RAYMOND SOLIS MD (PCP) follow up next week Patient Instructions: Back Pain, Adult, Zfhv-dr-Vloj Additional Instructions: You were evaluated in the emergency room for low back pain. Please follow-up w ith your primary care doctor. Come back to the ED at any point symptoms worsen Scripts Cyclobenzaprine Hcl (CYCLOBENZAPRINE HCL) 10 Mg Tablet 1 TAB PO TID, #30 TAB Prov: CLARISA FAIRBANKS BUILDING ENGINEER 11/07/20 Hydrocodone Bit/Acetaminophen (HYDROCODONE-APAP 5-325 ) 1 Tab Tablet 1 TAB PO PRN Q6HRS PRN for PAIN, #14 TAB 0 Refills Prov: CLARISA FAIRBANKS BUILDING ENGINEER 11/07/20 CLARISA FAIRBANKS BUILDING ENGINEER Nov 07, 2020 15:26
[2020-11-07 15:52] VITALS: BP 108/60
== END 2020-11-07 15:53 | disposition home or self-care (01) ==
LOC: ER 14:30
DX: M54.5 Low back pain (principal); G89.29 Other chronic pain; I11.0 Hypertensive heart disease with heart failure; I50.9 Heart failure, unspecified; I25.810 Atherosclerosis of coronary artery bypass graft(s) without angina pectoris; Z88.5 Allergy status to narcotic agent
CPT/HCPCS: 99283

== ENCOUNTER → 2020-12-11 | Outpatient (CLI) | payer MEDICARE ==
[~2020-12-11] MED LIST changes: +CYCL10TA2 PO; +HYDR-2761 PO
--- NOTE | 2020-12-11 12:29 | CARD ---
MR#: [id number] Date of Study: 12/11/2020 Ordering Physician: NAOMI MINER, Referring Physician: NAOMI MINER, Tech: Gosia An, [facility] APPROVED REPORT EXAM: Two-dimensional and M-mode echocardiogram with Doppler and color Doppler. Other Information Quality : FairHR: 80bpm Technically limited study due to CABG. INDICATION Cardiac Disease: CAD Surgery/Intervention CABG: Date: 2016 Site: [place] [facility] Hypertension 2D DIMENSIONS RVDd4.8 (2.9-3.5cm)Left Atrium(2D)4.5 (1.6-4.0cm) IVSd1.2 (0.7-1.1cm)Aortic Root(2D)3.5 (2.0-3.7cm) LVDd5.7 (3.9-5.9cm)LVOT Diameter2.1 (1.8-2.4cm) PWd1.2 (0.7-1.1cm)LVDs4.0 (2.5-4.0cm) FS (%) 30.2 %SV90.7 ml LVEF(%)56.9 (>50%) Aortic Valve AoV Peak Rohan.106.3cm/sAoV VTI18.6cm AO Peak GR.4.5mmHgLVOT Peak Rohan.74.7cm/s LVOT VTI 13.52cmAO Mean GR.2mmHg ADOLPH (VMAX)1.17nf5AEW (VTI)2.51cm2 Mitral Valve MV E Debbiqlj31.3cm/sMV DECEL UUUL670do MV A Bkjijzdb82.0cm/sMV MFR04qr E/A Ratio2.5MVA (PHT)3.33cm2 TDI E/Lateral E'5.6E/Medial E'9.6 Pulmonary Valve PV Peak Eumiknmc25.9cm/sPV Peak Grad.3mmHg Tricuspid Valve TR P. Gkcamwmo378zj/sRAP DGYPQBWX2asZl TR Peak Gr.53muFdYNOZ61rlWh LEFT VENTRICLE The left ventricle is normal size. There is mild concentric left ventricular hypertrophy. The left ve ntricular systolic function is mildly decreased. The Ejection Fraction is 40-45%. Wall motion consist ent with conduction abnormality. The left ventricular diastolic function and filling is normal for ag e. RIGHT VENTRICLE The right ventricle is borderline dilated. There is normal right ventricular wall thickness. The righ t ventricular systolic function is normal. ATRIA The left atrium is mild to moderately dilated. The right atrium size is normal. The interatrial septu m is intact with no evidence for an atrial septal defect or patent foramen ovale as noted on 2-D or D oppler imaging. AORTIC VALVE The aortic valve is mildly thickened. Doppler and Color Flow revealed trace aortic regurgitation. The re is no significant aortic valvular stenosis. Calculated aortic valve area is 2.45 cm2 with maximum pressure gradient of 6 mmHg and mean pressure gradient of 3 mmHg. MITRAL VALVE The mitral valve is normal in structure and function. There is no evidence of mitral valve prolapse. There is no mitral valve stenosis. Doppler and Color-flow revealed mild mitral regurgitation. TRICUSPID VALVE The tricuspid valve is normal in structure and function. Doppler and Color Flow revealed trace tricus pid regurgitation with an estimated PAP of 25 mmHg. There is no tricuspid valve stenosis. PULMONIC VALVE The pulmonic valve is not well visualized. Doppler and Color Flow revealed trace pulmonic valvular re gurgitation. GREAT VESSELS The aortic root is normal in size. The IVC was not well visualized. PERICARDIAL EFFUSION There is no evidence of significant pericardial effusion. Critical Notification Critical Value: No <Conclusion> The left ventricle is normal size. The left ventricular systolic function is mildly decreased. The Ejection Fraction is 40-45%. Wall motion consistent with conduction abnormality. There is mild concentric left ventricular hypertrophy. Doppler and Color Flow revealed trace aortic regurgitation. There is no significant aortic valvular stenosis. Doppler and Color-flow revealed mild mitral regurgitation. Doppler and Color Flow revealed trace tricuspid regurgitation with an estimated PAP of 25 mmHg. Signed by : Dany Peterson MD Electronically Approved : 12/11/2020 12:29:30
== END ==
LOC: ECHO 09:39
PROVIDERS: ATTEND Internal Medicine Cardiovascular Disease
DX: I34.0 Nonrheumatic mitral (valve) insufficiency (principal); I51.7 Cardiomegaly; I25.10 Atherosclerotic heart disease of native coronary artery without angina pectoris
CPT/HCPCS: 93306

== ENCOUNTER 2021-05-08 11:06 | Day surgery (SDC) | payer MEDICARE ==
[~2021-05-08] VITALS: Ht 175.3 cm; Wt 93.1 kg
[~2021-05-08 11:06] MED LIST changes: +AMIO200T53 PO; +APIX5TAB PO; +CHOL500045 PO; +CYCL10TA19 PO; -CYCL10TA2 PO; +IV RINGERS,LACTATED 1000ML 1,000 ML IV SCH; +LISI5TAB15 PO; +METO-239 PO
[2021-05-08 11:31] VITALS: BP 91/54
--- NOTE | 2021-05-08 11:48 | EKG ---
[facility] [address] [place] [address] Test Date: 2021-05-08 Test Time: 11:44:33 Pat Name: ZAIDA ELDER Department: Room: Gender: M [employer] Room Supervisor: YAKELIN : 1950 Requested By: NAOMI MINER Order Number: [id number] Reading MD: Dany Peterson Measurements Intervals [place] Rate: 77 P: SD: QRS: 30 QRSD: 90 T: 34 QT: 396 QTc: 450 Interpretive Statements ATRIAL FIBRILLATION LOW LIMB LEAD VOLTAGE Electronically Signed On 05-10-2021 16:15:01 SCRUB TECH by Dany Peterson
[2021-05-08] MEDS ORDERED: LIDOCAINE 2% VISCOUS 15 ML SOLUTION. ONE (11:53)
[2021-05-08] MEDS ORDERED: BENZOCAINE ONE 20% MUCOSAL SPRAY. (11:53)
[2021-05-08] MEDS ORDERED: LIDOCAINE 2% TOPICAL JELLY 30GM TUBE. TP ONE ×2 (11:53→12:00)
[2021-05-08] MEDS ORDERED: MIDAZOLAM HCL/PF 2 MG/2 ML VIAL. ONE (11:56)
[2021-05-08] MEDS ORDERED: PROPOFOL 10 MG/ML (20ML) VIAL. IV ONE (11:56)
[2021-05-08] MEDS ORDERED: LIDOCAINE 2% PF 5 ML VIAL. ONE (11:56)
[2021-05-08] MEDS ORDERED: BENZOCAINE ONE 20% MUCOSAL SPRAY. MM (12:00)
[2021-05-08] MEDS ORDERED: LIDOCAINE 2% VISCOUS 15 ML SOLUTION. SWSW ONE (12:00)
[2021-05-08 12:12] LABS: CALCIUM 8.5 mg/dL (8.5-10.1); MAGNESIUM 2.1 mg/dL (1.8-2.4); POTASSIUM 4.1 mmol/L (3.5-5.1)
--- NOTE | 2021-05-08 13:26 | EKG ---
[facility] [address] [place] [address] Test Date: 2021-05-08 Test Time: 13:23:38 Pat Name: ZAIDA ELDER Department: Room: Gender: M Forgesmith: GRETCHEN : 1950 Requested By: NAOMI MINER Order Number: [id number] Reading MD: Dany Peterson Measurements Intervals [place] Rate: 67 P: 0 SD: 234 QRS: 57 QRSD: 86 T: 48 QT: 424 QTc: 451 Interpretive Statements SINUS RHYTHM PROLONGED SD INTERVAL LOW LIMB LEAD VOLTAGE Electronically Signed On 05-10-2021 16:07:07 TRAVELIFT OPERATOR by Dany Peterson
[2021-05-08 13:50] VITALS: BP 89/38
--- NOTE | 2021-05-08 14:58 | PDOC1 ---
History and Physical Visit Information Date of Admission: 05/08/2021 History of Present Illness History of Present Illness Pleasant 70-year-old man coming to the hospital for a planned outpatient KATJA cardioversion in the setting of exertional dyspnea. He has been started on anticoagulation and is on amiodarone therapy. Risks and benefits were discussed with the patient. He currently denies any chest pain or syncope. No other hos pitalizations or ER visits. Cardiac Risk Factors Cardiac Risk Factors: Hypertension Past Medical History Comments Known history of atrial fibrillation Hypertension Dyslipidemia Current Medications Current Medications Current Medications Benzocaine (Hurricaine One) 1 spray STK-MED ONCE .ROUTE ; Start 05/08/21 at 11:53; Stop 05/08/21 at 11:54; Status DC Benzocaine (Hurricaine One) 2 spray 1X ONCE MM Last administered on 05/08/21at 12:52; Start 05/08/21 at 12:00; Stop 05/08/21 at 12:01; Status DC Lidocaine HCl (Lidocaine Pf 2% Vial) 5 ml STK-MED ONCE .ROUTE ; Start 05/08/21 at 11:56; Stop 05/08/21 at 11:56; Status DC Lidocaine HCl (Viscous Lidocaine) 15 ml STK-MED ONCE .ROUTE ; Start 05/08/21 at 11:53; Stop 05/08/21 at 11:54; Status DC Lidocaine HCl (Viscous Lidocaine) 30 ml 1X ONCE SWSW Last administered on 05/08/21at 12:52; Start 05/08/21 at 12:00; Stop 05/08/21 at 12:01; Status DC Lidocaine HCl (Xylocaine 2% Topical 30gm Tube) 1 angelina 1X ONCE TP Last administered on 05/08/21at 12:52; Start 05/08/21 at 12:00; Stop 05/08/21 at 12:0 1; Status DC Lidocaine HCl (Xylocaine 2% Topical 30gm Tube) 30 angelina STK-MED ONCE TP ; Start 05/08/21 at 11:53; Stop 05/08/21 at 11:54; Status DC Midazolam HCl (Versed) 2 mg STK-MED ONCE .ROUTE ; Start 05/08/21 at 11:56; Stop 05/08/21 at 11:57; Status DC Propofol (Diprivan) 200 mg STK-MED ONCE IV ; Start 05/08/21 at 11:56; Stop 05/08/21 at 11:56; Status DC Ringer's Solution 1,000 ml @ 50 mls/hr Q20H IV Last administered on 05/08/21at 11:41; Start 05/08/21 at 07:00; Stop 05/08/21 at 14:17; Status DC Allergies Allergies Allergies Coded Allergies Type Severity Reaction Last Updated Verified codeine Adverse Reaction Mild Nausea and Vomiting 05/08/21 Yes Social History Comments No alcohol, tobacco or illicit drug use ROS Review of System Negative for 10 out of 14 systems reviewed unless otherwise mentioned above in HPI Physical Exam Comments The patient appeared well nourished and normally developed. Head exam is unremarkable. No scleral icterus or corneal arcus noted. Neck is without jugular venous distension, thyromegaly, or carotid bruits. Carotid upstrokes are brisk bilaterally. Lungs are clear to auscultation and percussion. Cardiac exam reveals the PMI to be normally sized and situated. Rhythm is irregular. First and second heart sounds normal. No murmurs, rubs or gallops. Abdominal exam reveals normal bowel sounds, no masses, no organomegaly and no aortic enlargement. Extremities are nonedematous and both femoral and pedal pulses are normal. Msk: No traumua Neuro: No focal deficits Vitals VITALS Vital Signs Date Time Temp Pulse Resp B/P (MAP) Pulse Ox O2 Delivery O2 Flow Rate FiO2 05/08/21 13:50 Room Air 05/08/21 13:50 97.5 64 16 89/38 95 97.5 05/08/21 13:21 4 Labs Labs Laboratory Tests Test 05/08/21 11:40 Sodium Level 139 mmol/L (136-145) Potassium Level 4.1 mmol/L (3.5-5.1) Chloride Level 103 mmol/L (98-107) Carbon Dioxide Level 22 mmol/L (21-32) Anion Gap 14 (6-14) Blood Urea Nitrogen 27 mg/dL (8-26) Creatinine 2.0 mg/dL (0.7-1.3) Estimated GFR (Cockcroft-Gault) 33.0 Glucose Level 100 mg/dL (70-99) Calcium Level 8.5 mg/dL (8.5-10.1) Magnesium Level 2.1 mg/dL (1.8-2.4) Laboratory Tests Test 05/08/21 11:40 Sodium Level 139 mmol/L (136-145) Potassium Level 4.1 mmol/L (3.5-5.1) Chloride Level 103 mmol/L (98-107) Carbon Dioxide Level 22 mmol/L (21-32) Anion Gap 14 (6-14) Blood Urea Nitrogen 27 mg/dL (8-26) Creatinine 2.0 mg/dL (0.7-1.3) Estimated GFR (Cockcroft-Gault) 33.0 Glucose Level 100 mg/dL (70-99) Calcium Level 8.5 mg/dL (8.5-10.1) Magnesium Level 2.1 mg/dL (1.8-2.4) VTE Prophylaxis Ordered VTE Prophylaxis Devices: No VTE Pharmacological Prophylaxi: No Assessment/Plan Assessment/Plan 1. Paroxysmal atrial fibrillation Plan for KATJA/cardioversion. Risks and benefits discussed with the patient Justicifation of Admission Dx: Justifications for Admission: Justification of Admission Dx: N/A NAOMI MINER MD May 08, 2021 14:58
--- NOTE | 2021-05-08 15:01 | CARD ---
MR#: [id number] Date of Study: 05/08/2021 Ordering Physician: NAOMI MINER, Referring Physician: NAOMI MINER, Tech: APPROVED REPORT EXAM: Transesophageal echocardiogram with color flow Doppler and Synchronized Cardioversion. INDICATION Atrial Fibrillation Reason For Test : Rule out Intracardiac Thrombus. PROCEDURE After obtaining informed consent, patient underwent transesophageal echo in the PACU. Type of Sedation : General Anesthesia Sedation was administered by . Sedation was achieved with Propofol 150mg intravenously. The KATJA was performed without complications. Synchronized Cardioversion attempted: Successful Synchronized Cardioversion acheived with 200 Joules after 1 attempt(s). Rhythm following Synchronized Cardioversion: Normal Sinus Rhythm Throughout the procedure, the blood pressure, pulse oximetry, cardiac rhythm, and rate were monitored . The patient tolerated the procedure without adverse effects. Recovery from general anesthesia was une ventful and vital signs were stable. LEFT VENTRICLE The left ventricle is normal size. There is borderline concentric left ventricular hypertrophy. The l eft ventricular systolic function is normal and the ejection fraction is within normal range. Estimat ed ejection fraction 55-60%. There is normal LV segmental wall motion. Tissue Doppler imaging reveals moderate left ventricular diastolic dysfunction. No left ventricle thrombus noted on this study. The re is no ventricular septal defect visualized. RIGHT VENTRICLE The right ventricle is normal size. There is normal right ventricular wall thickness. The right ventr icular systolic function is normal. ATRIA The left atrium appears mildly dilated. The right atrium size is normal. The interatrial septum is in tact with no evidence for an atrial septal defect or patent foramen ovale as noted on 2-D or Doppler imaging. There is no thrombus noted in the left atrial appendage. AORTIC VALVE The aortic valve is normal in structure and function. Doppler and Color Flow revealed no significant aortic regurgitation. There is no significant aortic valvular stenosis. MITRAL VALVE The mitral valve is notable for restricted posterior leaflet. There is no evidence of mitral valve pr olapse. There is no mitral valve stenosis. Doppler and Color-flow revealed moderate central mitral re gurgitation. TRICUSPID VALVE The tricuspid valve is normal in structure and function. Doppler and Color Flow revealed trace tricus pid regurgitation. There is no tricuspid valve stenosis. PULMONIC VALVE The pulmonary valve is normal in structure and function. Doppler and Color Flow revealed trace pulmon ic valvular regurgitation. There is no pulmonic valvular stenosis. GREAT VESSELS The aortic root is normal in size. The ascending aorta is normal in size. The IVC is normal in size a nd collapses >50% with inspiration. PERICARDIAL EFFUSION There is no evidence of significant pericardial effusion. There is no pleural effusion. Critical Notification Critical Value: No <Conclusion> The left ventricular systolic function is normal and the ejection fraction is within normal range. E stimated ejection fraction 55-60%. There is normal LV segmental wall motion. Doppler and Color-flow revealed moderate central mitral regurgitation. Successful CVN to SR. Signed by : Naomi Miner, Electronically Approved : 05/08/2021 15:00:19
== END 2021-05-08 14:10 | disposition home or self-care (01) ==
LOC: SURG 11:06
PROVIDERS: ATTEND Internal Medicine Cardiovascular Disease
DX: I48.0 Paroxysmal atrial fibrillation (principal); I34.0 Nonrheumatic mitral (valve) insufficiency; I11.0 Hypertensive heart disease with heart failure; I50.9 Heart failure, unspecified; I25.10 Atherosclerotic heart disease of native coronary artery without angina pectoris; E78.00 Pure hypercholesterolemia, unspecified; M19.90 Unspecified osteoarthritis, unspecified site; F41.9 Anxiety disorder, unspecified; F32.9 Major depressive disorder, single episode, unspecified; Z87.891 Personal history of nicotine dependence; Z79.899 Other long term (current) drug therapy; Z79.82 Long term (current) use of aspirin; Z98.890 Other specified postprocedural states; Z88.5 Allergy status to narcotic agent
CPT/HCPCS: 36415; 80048; 83735; 92960; 93005; 93312; J2250; J2704

== ENCOUNTER → 2021-09-23 | Outpatient (CLI) | payer MEDICARE ==
[~2021-09-23] MED LIST changes: -IV RINGERS,LACTATED 1000ML 1,000 ML IV SCH; +REGADENOSON 0.4 MG/5 ML DISP.SYRIN. IV ONE
--- NOTE | 2021-09-23 11:54 | RAD ---
MR#: [id number] Date of Study: 09/23/2021 Ordering Physician: NAOMI MINER, Referring Physician: NAOMI MINER, Tech: Gosia Florence, COLLIN, RVT, RTR APPROVED REPORT Patient Location: OUT-PATIENT Laterality:Bilateral Indications Bilateral Carotid Artery Stenosis Doppler Spectral Velocity Analysis Right Left pCCA 108/19 cm/spCCA 103/21 cm/s mCCA 115/21 cm/smCCA 92/18 cm/s dCCA 103/18 cm/sdCCA 103/26 cm/s ECA 108/ cm/sECA 106/ cm/s pICA 81/20 cm/spICA 79/14 cm/s Tangela 81/25 cm/smICA 90/30 cm/s dICA 102/29 cm/sdICA 99/25 cm/s Vert. 37/ cm/sVert. 52/ cm/s ICA/CCA 0.89ICA/CCA 1.06 Findings Grayscale images of the bilateral carotid vessels demonstrates mild diffuse intimal hyperplasia. Ove rall 0 to less than 50% stenosis based on velocity criteria in the bilateral internal carotid vessels . Bilateral vertebral velocities are within normal limits and antegrade. Normal ICA to CCA ratios b ilaterally. Critical Notification Critical Value: No <Conclusion> 1. No significant extracranial carotid occlusive disease bilaterally. Signed by : Naomi Miner, Electronically Approved : 09/23/2021 11:53:56
--- NOTE | 2021-09-23 12:08 | RAD ---
MR#: [id number] Date of Study: 09/23/2021 Ordering Physician: NAOMI JASSO, Referring Physician: MEREDITH BIRMINGHAM Tech: RT Filiberto West) (N) APPROVED REPORT Test Type: Pharmacological Stress Nurse/Tech: Salena Baron RN Test Indications: CAD Cardiac History: Hypertension,bypass-2017 Medications: See Electronic Medical Record Medical History: See Electronic Medical Record Resting ECG: SR Resting Heart Rate: 62 bpm Resting Blood Pressure: 132/65mmHg Pretest Chest Pain: No chest pain Nurse/Tech Notes S1,S2 and lungs clear to auscultation. Consent: The procedure was explained to the patient in lay terms. Informed consent was witnessed. Gage eout was entered into [facility]. History and Stress Test performed by RT Brett (R) (N) Pharm. Details Pharmacologic stress testing was performed using 0.4mg per 5ml of regadenoson given intravenously ove r 7-10 seconds. Stress Symptoms No chest pain or symptoms. POST EXERCISE Reason for Termination: Infusion complete Target HR: Yes Max HR: 143 bpm 114% of Maximum Predicted HR: 125 bpm Max Blood Pressure: 124/53mmHg Blood Pressure response to exercise: Normal blood pressure response during stress. Heart Rate response to exercise: WNL Chest Pain: No. Arrhythmia: No. ST Change: No. INTERPRETATION Stress EKG Conclusion: No evidence of stress-induced EKG changes Imaging Protocol IMAGE PROTOCOL: Rest Tc-99m/stress Tc-99m 1 day Rest: Stress: Viability: Radiopharm.Tc99m [id number] Sestamibi Dose10.4mCi 32mCi Duration 15min. 10min. Img Date 09/23/2021 09/23/2021 Inj-Img [id number]. 60min. Rest Admin Site:IV - Left ForearmAdministrator:CAROLE Vargas, ARRT (R)(N) Stress Admin Site: IV - Left ForearmAdministrator: CAROLE Vargas, ARRT (R)(N) STRESS DATA End Diast. Vol.105.0mlAv. Heart Rate82.0bpm End Syst. Vol.49.0mlCO Index BSA4.5L/min Myocardial Yzxv918.0gEject. Spvnuklx06.0% Stress Rates Pk. Fill Rate2.16EDV/secLVtime Pk. Fill 85.43msec Pk. Empty Rate3.26ESV/secLVtime Pk. Mdqhl749.11msec 1/3 Pk. Fill1.43EDV/sec Stress Scores Regional WT2.00Summed WT10.00 Regional WM1.00Summed WM20.00 LV Perfusion There is a large size severe intensity basal to distal inferior inferolateral mostly fixed perfusion defect suggestive of large prior RCA territory infarct with mild lorelei-infarct reversibility. The lat eral aspect of the defect may also be related to a circumflex territory lesion. Wall Motion Mild LV dysfunction, EF 45% LV Perf. Quant 17 Seg. SSS25.00 17 Seg. SRS18.00 17 Seg. SDS7.00 Stress Defect Extent (% LAD)10.00Rest Defect Extent (% LAD)9.40Rev. Defect Extent (% LAD)0.00 Stress Defect Extent (% LCX) 100.00Rest Defect Extent (% LCX)86.30Rev. Defect Extent (% LCX)72.5 0 Stress Defect Extent (% RCA)46.70Rest Defect Extent (% RCA)26.70Rev. Defect Extent (% RCA)7.80 Stress Defect Extent (% KENDALL)44.30Rest Defect Extent (% KENDALL)33.90Rev. Defect Extent (% KENDALL)18.30 Other Information Quality:Average Risk Assessment: Moderate-High Risk Conclusion 1. No evidence of stress-induced EKG changes 2. Large inferior and lateral mostly fixed perfusion defect with minimal lorelei-infarct reversibility. 3. Moderate LV dysfunction, EF 45% 4. Moderate to high risk for future cardiovascular events. Signed by : Naomi Jasso, Electronically Approved : 09/23/2021 12:08:41
== END ==
LOC: NM 07:31
PROVIDERS: ATTEND Internal Medicine Cardiovascular Disease
DX: I65.23 Occlusion and stenosis of bilateral carotid arteries (principal); I25.10 Atherosclerotic heart disease of native coronary artery without angina pectoris; I51.9 Heart disease, unspecified
CPT/HCPCS: 78452; 93017; 93880; A9500; J2785